=== PATIENT | male | born 1950 | race Caucasian/White ===

== ENCOUNTER 2018-10-26 07:34 | Outpatient (CLI) | payer MEDICARE, MEDICAID, SELFPAY ==
[2018-10-26 08:31] LABS: Hemoglobin A1C 5.8 % (4.5-6.2)
[2018-10-26 10:42] LABS: ALT 44 U/L (12-78); AST 46 U/L (15-37); CREATININE 1.04 mg/dL (0.70-1.30); Potassium 5.5 mmol/L (3.5-5.1)
== END 2018-10-26 07:54 ==
PROVIDERS: PCP General Practice; Visit Provider General Practice
DX: E11.9 Type 2 diabetes mellitus without complications (principal); I10 Essential (primary) hypertension; F10.10 Alcohol abuse, uncomplicated
CPT/HCPCS: 36415; 82565; 83036; 84132; 84450; 84460

== ENCOUNTER 2019-06-14 13:41 | Inpatient (IN) | payer MEDICARE, MEDICAID, SELFPAY ==
[2019-06-14] VITALS (11 sets, daily range): BP systolic 111–154; BP diastolic 73–93; PULSE 7–115; RESP 2–22; TEMP 36.8–38.5; O2SAT 94–97
--- NOTE | 2019-06-14 14:00 | DI.RAD_ITS ---
EXAM: XR CHEST 2V PA LATERAL INDICATION: COUGH/FEVER/SOB. COMPARISON: CHEST 2 VIEWS PA,LAT from 02/22/2016 TECHNIQUE: 2D digital imaging was performed. FINDINGS: The heart size and pulmonary vasculature are within normal limits. Given the slight differences in t echnique, there has been no significant change in appearance of the lungs. No acute infiltrates, eff usions or pneumothoraces are identified. There is hyperexpansion and inflation of the lungs consiste nt with underlying COPD. Degenerative changes are seen in the spine. IMPRESSION: No acute pulmonary process.
[2019-06-14 14:18] LABS: Lactate 1.4 mmol/L (0.6-1.4)
[2019-06-14] MEDS: Albuterol/Ipratropium 3 ML UPD VIAL UPD ×3 (14:19→23:26)
[2019-06-14 14:20] LABS: Abs Immature Grans 0.01 k/cumm (0.0-0.09); Absolute Basophil Count 0.03 k/cumm (0.0-0.2); Absolute Lymphocyte Count 0.48 k/cumm (1.2-3.4); Absolute Monocyte Count 0.53 k/cumm (0.11-0.7); Absolute Neutrophil Count 6.38 k/cumm (1.2-6.7); Basophils % 0.4; HCT 36.7 % (40.0-50.0); HGB 12.5 g/dL (13.5-17.5); Immature Grans % 0.1 %; Lymphocytes % 6.5; Mean Corp. HGB Concentration 34.1 g/dL (32.0-36.0); Mean Corpuscular Hemoglobin 32.2 pg (27.0-33.0); Mean Corpuscular Volume 94.6 fL (80-95); Mean Platelet Volume 8.6 fL (8.0-11.0); Monocytes % 7.1; Neutrophils % 85.9; Platelet Count 229 x1000/uL (130-400); RBC 3.88 m/cumm (4.50-6.00); RBC Distribution Width 12.7 % (11.8-14.1); White Blood Cell Count 7.43 k/cumm (4.4-10.8)
[2019-06-14] MEDS: Normal Saline 1,000 ML 1000 ML IV (14:20)
[2019-06-14] MEDS: Acetaminophen 500 MG TAB 1000 MG PO (14:20)
--- NOTE | 2019-06-14 14:25 | W.ED.GENAD ---
Discharge Plan Disposition Patient Disposition: [facility] INPATIENT Condition: Serious Discharge Details Chief Complaint: SOB Clinical Impression: Pneumonia, HOME (acute kidney injury), CHF (congestive heart failure) Primary Care Provider: Keith Padron ED Provider: Shahriar Shaffer Home Meds and New Rx's Prescriptions: No Action aspirin 81 mg Tablet,Chewable 81 mg PO DAILY RF: 0 cyclobenzaprine 10 mg Tablet 10 mg PO TID PRNRF: 0 atenolol 100 mg Tablet 100 mg PO DAILY RF: 0 albuterol sulfate 90 mcg/actuation Hfa Aerosol Inhaler 2 puff INHALATION Q6H PRNRF: 0 losartan 100 mg Tablet 100 mg PO DAILY RF: 0 Medical Decision Making 68-year-old gentleman who is a vague and poor historian presents for 3 day of dyspnea. Initial EKG obtained at 1347 reveals atrial fibrillation, rate of 107. No obvious acute ST elevation segments. Reviewed with Dr. Soto. We did review with previous EKG on 02-22-16 which revealed atrial fibrillation, rate controlled of 98 at that time. No dynamic changes. I was able to review the patient's record when he was here in 2016, he was offered admission at that time but declined. Patient reports that he feels ill enough today and would come into the hospital if needed. He presents with mild labored breathing, wheezing, fever. Will initiate a septic work-up, give 1 L IV fluid given he appears slightly dry, as well as a cardiac work-up. During the patient's stay his temperature did come down without an antipyretic to 37.8. Heart rate is now in the 90s, he is without tremor. No obvious signs of alcohol withdrawal. White count is within normal range. Creatinine of 1.54, he has already received 400 cc of normal saline. This puts his GFR at 45. Magnesium of 1.5, given 1 g IV. BNP of 3422, patient appears more dry, no obvious edema. Given his GFR, HOME, do not want to initiate aggressive Lasix therapy. However given his BNP, will gingerly give the remaining of the liter, especially as he will need a chest CTA to rule out PE as his chest x-ray was unremarkable. Chest CTA reveals pulmonary fibrosis, bilateral lower lobe infiltrates, cannot exclude simple edema without infectious infiltrate. No PE. Given the patient's age, comorbidities, lack of outpatient resources, I do believe that treating him for pneumonia, HOME, CHF here in the hospital is reasonable. I gave 1 g IV Rocephin and 500 IV azithromycin. Blood cultures were pending. Patient did receive the rest of his IV fluid, will not give a second liter at this time given his BNP, and as above will not initiate Lasix therapy given his HOME. I discussed the case with Dr. Rodriguez, who recommended a flu swab be obtained but was otherwise agreeable to admission. Patient has no additional questions or concerns as well and is comfortable with this plan Medical Records Medical records reviewed: Yes I reviewed the patient's medical records. Imaging Data Radiologic Study: Attestation: I personally reviewed and interpreted this imaging study as follows: Imaging: X-Ray (Chest, read by me as COPD changes, nothing acute) Radiologic Study #2: Imaging: CT Scan (As above, bilateral lower lobe infiltrates as read by radiology) Lab Data Lab results reviewed: Yes I reviewed the patient's lab results. Lab results narrative: 06/14/19 16:20 Nasopharynx Influenza Types A,B Antigen - Final 06/14/19 14:30 Blood Blood Culture - Pending 06/14/19 14:05 Blood Blood Culture - Pending Laboratory Tests Range/Units 06/14/19 06/14/19 06/14/19 14:02 14:02 14:05 WBC (4.4-10.8) k/cumm RBC (4.50-6.00) m/cumm Hgb (13.5-17.5) g/dL Hct (40.0-50.0) % MCV (80-95) fL MCH (27.0-33.0) pg MCHC (32.0-36.0) g/dL RDW (11.8-14.1) % Plt Count (130-400) x1000/uL MPV (8.0-11.0) fL Immature Gran % % Neutrophils % Lymphocytes % Monocytes % Eosinophils % Basophils % Absolute Neutrophils (1.2-6.7) k/cumm Absolute Lymphocytes (1.2-3.4) k/cumm Absolute Monocytes (0.11-0.7) k/cumm Absolute Eosinophils (0.0-0.7) k/cumm Absolute Basophils (0.0-0.2) k/cumm Sodium (136-145) mmol/L 133 L Potassium (3.5-5.1) mmol/L 4.4 Chloride (98-107) mmol/L 97 L Carbon Dioxide (21.0-32.0) mmol/L 21.9 Anion Gap (3-11) mmol/L 14.1 H BUN (7-18) mg/dL 20 H Creatinine (0.70-1.30) mg/dL 1.54 H Estimated GFR/1.73 m2 (mL/min/1.73m2) 45.01 Glucose (74-106) mg/dL 126 H Lactate (0.6-1.4) mmol/L Calcium (8.5-10.1) mg/dL 8.6 Magnesium (1.8-2.4) mg/dL 1.5 L Total Bilirubin (0.2-1.0) mg/dL 0.5 AST (15-37) U/L 45 H ALT (16-63) U/L 34 Alkaline Phosphatase (46-116) U/L 81 Troponin I (<0.06) ng/Ml < 0.05 NT-Pro-B Natriuret Pep (<300) pg/mL 3422 H Total Protein (6.4-8.2) g/dL 8.4 H Albumin (3.4-5.0) g/dL 3.8 Procalcitonin ng/mL Ethyl Alcohol (<3) mg/dL < 3.0 Range/Units 06/14/19 06/14/19 06/14/19 14:05 14:05 14:05 WBC (4.4-10.8) k/cumm 7.43 RBC (4.50-6.00) m/cumm 3.88 L Hgb (13.5-17.5) g/dL 12.5 L Hct (40.0-50.0) % 36.7 L MCV (80-95) fL 94.6 MCH (27.0-33.0) pg 32.2 MCHC (32.0-36.0) g/dL 34.1 RDW (11.8-14.1) % 12.7 Plt Count (130-400) x1000/uL 229 MPV (8.0-11.0) fL 8.6 Immature Gran % % 0.1 Neutrophils % 85.9 Lymphocytes % 6.5 Monocytes % 7.1 Eosinophils % 0.0 Basophils % 0.4 Absolute Neutrophils (1.2-6.7) k/cumm 6.38 Absolute Lymphocytes (1.2-3.4) k/cumm 0.48 L Absolute Monocytes (0.11-0.7) k/cumm 0.53 Absolute Eosinophils (0.0-0.7) k/cumm 0.00 Absolute Basophils (0.0-0.2) k/cumm 0.03 Sodium (136-145) mmol/L Potassium (3.5-5.1) mmol/L Chloride (98-107) mmol/L Carbon Dioxide (21.0-32.0) mmol/L Anion Gap (3-11) mmol/L BUN (7-18) mg/dL Creatinine (0.70-1.30) mg/dL Estimated GFR/1.73 m2 (mL/min/1.73m2) Glucose (74-106) mg/dL Lactate (0.6-1.4) mmol/L 1.4 Calcium (8.5-10.1) mg/dL Magnesium (1.8-2.4) mg/dL Total Bilirubin (0.2-1.0) mg/dL AST (15-37) U/L ALT (16-63) U/L Alkaline Phosphatase (46-116) U/L Troponin I (<0.06) ng/Ml NT-Pro-B Natriuret Pep (<300) pg/mL Total Protein (6.4-8.2) g/dL Albumin (3.4-5.0) g/dL Procalcitonin ng/mL 0.7 Ethyl Alcohol (<3) mg/dL HPI General Mode of arrival: ambulatory. Date/Time Provider Initiated Documentation: 06/14/19 13:46. Limitations to Documentation: no limitations. Information obtained by: patient. HPI Narrative: This is a 68-year-old gentleman who presents to the ER for 3-day history of dyspnea, worse with exertion or lying flat. He reports that he drinks alcohol roughly 6-12 beers daily but has not had a drink in 3 days. He reports that he smoked a pack of cigarettes daily for roughly 50 years but stopped a couple years ago. He is supposed to be using an inhaler but reports that they do not help so he does not use them. He is a rather vague and poor historian. He admits a dry cough, subjective fever, and general fatigue. He denies headache, neck pain, visual changes, chest pain, abdominal pain, nausea, vomiting, bowel or bladder issues, pain or swelling in his legs. Denies numbness, tingling, weakness. Patient is unaware of any history of atrial fibrillation although it looks like he may be in A. fib on the color television console monitor, EKG pending. Patient denies any anticoagulation medication. He currently does not have a primary care provider. Related Data Home Medications Medication Instructions Recorded Confirmed albuterol sulfate 2 puff INHALATION Q6H PRN 06/14/19 06/14/19 aspirin 81 mg PO DAILY 06/14/19 06/14/19 atenolol 100 mg PO DAILY 06/14/19 06/14/19 cyclobenzaprine 10 mg PO TID PRN 06/14/19 06/14/19 losartan 100 mg PO DAILY 06/14/19 06/14/19 Allergies Allergy/AdvReac Type Severity Reaction Status Date / Time Penicillins Allergy Unknown Unverified 06/14/19 13:54 General Stated Complaint: SOB ANETA: 2 Review of Systems Constitutional Constitutional: Denies chills, Reports fatigue, Reports fever(s) and Denies headache(s) Eyes Eyes: Denies other visual disturbances ENT Ears, Nose, Mouth, and Throat: Denies headache(s) and Denies sore throat Cardiovascular Cardiovascular: Denies chest pain and Reports dyspnea Respiratory Respiratory: Reports cough and Reports dyspnea Gastrointestinal Gastrointestinal: Denies abdominal pain, Denies nausea and Denies vomiting Genitourinary Genitourinary: Denies dysuria Musculoskeletal Musculoskeletal: Denies back pain Integumentary/Breasts Skin/Breast: Denies rash Neurologic Neurologic: Denies headache(s) Endocrine Endocrine: Reports fatigue Hematologic/Lymphatic Hematologic/Lymphatic: Denies easy bleeding and Denies easy bruising [facility] Social History Smoking/Tobacco Use Status: Current every day Tobacco Type: smokeless tobacco Substance use type: marijuana Details: drinks 6-12 pack beer everyday except the last 3 days Exam Const General: cooperative and comfortable Orientation: alert and awake [facility] Head: normal to inspection, normocephalic and atraumatic Mouth: mucous membranes dry Eyes Conjunctivae: conjunctivae normal Neck Neck: normal visual inspection, full ROM, no lymphadenopathy, no meningeal signs, trachea midline and supple Resp Effort & Inspection: cough Quality of cough: dry, labored (mild) and no respiratory distress Auscultation: diminished lung sounds (Throughout, worse at the bases) and wheezes (Throughout, mild, worse in the upper lobes) Cardio Rate: other Rhythm: other (Irregularly irregular, rate of 112) GI Inspection: normal to inspection Palpation: soft, not firm, no guarding, not rigid and nontender Auscultation: normal bowel sounds Back/Spine/Pelvis Back: No back tenderness Skin General skin exam: no rashes or lesions noted Neuro General: alert, awake, oriented x3 and no focal motor deficits Cranial Nerves: CN's II-XI intact bilaterally Motor: muscle tone normal throughout Sensory Exam: no sensory deficits noted Extrem General: normal to inspection Psych Appearance: grossly normal Mental Status: mental status grossly normal Course Vital Signs Vital signs: Vital Signs Temperature 38.5 C H 06/14/19 13:46 Pulse 115 H 06/14/19 13:46 Respiratory Rate 22 06/14/19 13:46 Blood Pressure 154/88 H 06/14/19 13:46 Pulse Oximetry 96 06/14/19 13:46 Temperature 38.5 C H 06/14/19 13:46 Pulse 103 H 06/14/19 14:19 Respiratory Rate 22 06/14/19 13:46 Respiratory Effort Labored 06/14/19 13:46 Blood Pressure 154/88 H 06/14/19 13:46 Blood Pressure Position Sitting 06/14/19 13:46 Pulse Oximetry 96 06/14/19 13:46 Oxygen Delivery Method Room Air 06/14/19 14:19 Oxygen Flow Rate 0 06/14/19 14:19 Pain Level 0 06/14/19 13:46 Lab/Test Results Lab/Test Results: 06/14/19 14:05 Blood Blood Culture - Pending 06/14/19 14:02 Blood Blood Culture - Pending Laboratory Tests Range/Units 06/14/19 06/14/19 14:05 14:05 WBC (4.4-10.8) k/cumm 7.43 RBC (4.50-6.00) m/cumm 3.88 L Hgb (13.5-17.5) g/dL 12.5 L Hct (40.0-50.0) % 36.7 L MCV (80-95) fL 94.6 MCH (27.0-33.0) pg 32.2 MCHC (32.0-36.0) g/dL 34.1 RDW (11.8-14.1) % 12.7 Plt Count (130-400) x1000/uL 229 MPV (8.0-11.0) fL 8.6 Immature Gran % % 0.1 Neutrophils % 85.9 Lymphocytes % 6.5 Monocytes % 7.1 Eosinophils % 0.0 Basophils % 0.4 Absolute Neutrophils (1.2-6.7) k/cumm 6.38 Absolute Lymphocytes (1.2-3.4) k/cumm 0.48 L Absolute Monocytes (0.11-0.7) k/cumm 0.53 Absolute Eosinophils (0.0-0.7) k/cumm 0.00 Absolute Basophils (0.0-0.2) k/cumm 0.03 Lactate (0.6-1.4) mmol/L 1.4
[2019-06-14 14:39] LABS: ALT 34 U/L (16-63); AST 45 U/L (15-37); Albumin 3.8 g/dL (3.4-5.0); Alkaline Phosphatase 81 U/L (46-116); Anion Gap 14.1 mmol/L (3-11); BUN 20 mg/dL (7-18); Bilirubin, Total 0.5 mg/dL (0.2-1.0); CO2 21.9 mmol/L (21.0-32.0); CREATININE 1.54 mg/dL (0.70-1.30); Calcium 8.6 mg/dL (8.5-10.1); Chloride 97 mmol/L (98-107); Estimated GFR 45.01 (mL/min/1.73m2); Glucose 126 mg/dL (74-106); Magnesium 1.5 mg/dL (1.8-2.4); Potassium 4.4 mmol/L (3.5-5.1); Sodium 133 mmol/L (136-145); Total Protein 8.4 g/dL (6.4-8.2)
[2019-06-14 14:40] LABS: Troponin I < 0.05 ng/Ml (<0.06)
[2019-06-14 14:45] LABS: NT-proBNP 3422 pg/mL (<300)
[2019-06-14 14:57] LABS: ETHANOL BLOOD < 3.0 mg/dL (<3)
[2019-06-14] MEDS: Normal Saline - Diluent 50 ML VIAL IV (15:25)
[2019-06-14] MEDS: Omnipaque 350 MG/ML 100 ML BTL IJ (15:41)
--- NOTE | 2019-06-14 15:42 | DI.CT_ITS ---
EXAM: CT CHEST PE CTA CLINICAL HISTORY: IN A. FIB, UNKNOWN HOW LONG, DYSPNEA, TACHY. TECHNIQUE: Imaging Protocol: Axial CT angiography was performed with multislice acquisition and mul tiplanar and/or 3D reconstructions. CONTRAST MATERIAL: Intravenous: Omnipaque 350 Contrast volume:70 mL COMPARISON: XR CHEST 2V PA LATERAL from 06/14/2019 FINDINGS: There is significant patient motion artifact present. Pulmonary Arteries: No evidence of filling defect to suggest pulmonary emboli. Tracheobronchial tree: Patent where visualized. Mediastinum and Enedina: Mildly enlarged lymph nodes are seen in the mediastinum. These are nonspecific . Pulmonary parenchyma: There is moderate pulmonary fibrosis predominantly involving the lower lobes. Centrilobular emphysematous changes are present. There are airspace opacities in the lower lobes benita aterally and the right middle lobe. This may reflect pulmonary edema, pneumonia or atelectasis. Pleura: No effusion or pneumothorax. Heart: Heart is enlarged. No significant pericardial effusion is present. No evidence of right hear t strain. Moderate coronary artery calcifications are present. Aorta: Thoracic aorta non-dilated. No dissection. No evidence of an aneurysm. Upper abdomen: Unremarkable. Bones: Degenerative changes. IMPRESSION: 1. Patient motion artifact present. 2. No evidence of pulmonary embolism, thoracic aortic dissection or aneurysm. 3. Centrilobular emphysema. 4. Moderate pulmonary fibrosis. 5. Airspace opacities in the lower lobe and right middle lobe. This may reflect edema, pneumonia or atelectasis. 6. Findings were discussed with the Emergency Department on the date of the examination. DATA REPOSITORY: All CT scans at this facility are submitted to the National Radiology Data Registry (NRDR) Dose Index Registry (DIR) with the [employer] (ACR). RADIATION OPTIMIZATION: All CT scans at this facility use at least one of these dose optimization te chniques: automated exposure control; mA and/or kV adjustment per patient size (includes targeted exa ms where dose is matched to clinical indication); or iterative reconstruction.
[2019-06-14] MEDS: MAGNESIUM SULFATE 1 GM/100 ML BAG IVPB (16:03)
[2019-06-14] MEDS: cefTRIAXone 1 GM/50 ML BAG IVPB (16:25)
[2019-06-14 17:02] LABS: Procalcitonin 0.7 ng/mL
[2019-06-14] MEDS: Thiamine 100 MG TAB PO (17:02)
[2019-06-14] MEDS: AZITHROMYCIN 500 MG in Normal Saline 250 ML 250 MG IVPB (17:04)
[2019-06-14 17:19] LABS: Troponin I < 0.05 ng/Ml (<0.06)
[2019-06-14 18:28] LABS: Bilirubin Negative (Negative); Blood Negative (Negative); Clarity Clear (Clear); Glucose Negative (Negative); Ketones Negative (Negative); Leukocyte Esterase Negative (Negative); Nitrite Negative (Negative); Specific Gravity <= 1.005 (1.005-1.025); Urobilinogen 0.2 EU/dL (Up TO 0.2); pH 5.5 (5-8)
[2019-06-14] MEDS: Heparin 5,000 UNITS/ML VIAL 5000 UNITS SC (18:39)
--- NOTE | 2019-06-14 18:56 | HPE_ITS ---
Date of service: 06/14/19 Time of Service: 18:57 Assessment and Plan Assessment and plan (1) Sepsis: Status: Acute Assessment and plan: due to bilateral pneumonia, present on admission. Blood cultures and sputum cultures are pending. Continue empiric azithromycin and ceftriaxone initiated in the ED. Initiated MIVF. Monitor I/O's and daily weights. (2) CAP (community acquired pneumonia): Status: Acute Assessment and plan: As above (3) Pulmonary fibrosis: Status: Acute Assessment and plan: the likely etiology of crackles heard on exam rather than CHF. Patient is being initiated on Steroids as it could be in acute exacerbation. (4) Alcohol abuse: Status: Chronic Assessment and plan: Monitor on CIWA with prn ativan, MVI, thiamine. (5) Hypomagnesemia: Status: Acute Assessment and plan: Replete and recheck in am (6) Atrial fibrillation: Status: Chronic Assessment and plan: rate controlled at this time. Continue atenolol. Not on anticoagulation due to h/o EtOH abuse - would not start at thist shawn. (7) HOME (acute kidney injury): Status: Acute Assessment and plan: Most likely prerenal in setting of sepsis, but also on losartan as outpatient - will hold. Hydrate carefully. Check bladder scans (8) Hyponatremia: Status: Acute Assessment and plan: In setting of HOME, ARB use, sepsis, dehydration. Hold ARB, hydrate with IVF; recheck in am. (9) DVT prophylaxis: Status: Acute Assessment and plan: SC heparin (10) Discharge planning issues: Status: Acute Assessment and plan: Full code Consult palliative care for further discussion re goals of care History of Present Illness History of Present Illness Chief Complaint: I couldn't breathe Narrative: Mr Cooper is a 68 year old male who is a poor history provider with PMHx of Afib, not on anticoagulation, as well as hypertension, hypomagnesemia, alcohol abuse with history of possible alcohol withdrawal in the past, who presented to [facility] ED today complaining of shortness of breath. He states that his symptoms have been going on for 2-3 days, describing subjective fevers, nonproductive cough, runny nose and sore throat. The patient did have a fever on presentation and his heart rate was slightly rapid (Afib - low 100s). He tested negative for influenza. His CT imaging of the chest did reveal bibasilar pneumonia. The patient was felt to be clinically dehydrated as well, though there was a suggestion of fluid overload from an elevated proBNP and chest imaging. The patient was initiated on empiric azithromycin, ceftriaxone, and we were asked to admit the patient. Review of Systems Narrative: 12 systems reviewed. Pertinent positives and negatives are as per HPI. [facility] Medical History (Updated 06/14/19 @ 19:23 by Ghislaine Rodriguez MD) Alcohol abuse (Chronic) Atrial fibrillation (Chronic) Hypertension (Chronic) Hypomagnesemia (Acute) Tobacco abuse, in remission (Acute) Surgical History (Updated 06/14/19 @ 19:04 by Ghislaine Rodriguez MD) Hx of appendectomy (Chronic) S/P surgical manipulation of ankle joint (Acute) Family History (Updated 06/14/19 @ 19:05 by Ghislaine Rodriguez MD) Paternal Grandmother Diabetes Uncle Cancer patient does not know what type Social History (Updated 06/14/19 @ 19:06 by Ghislaine Rodriguez MD) Smoking/Tobacco Use Status: Former Tobacco Use Quit Date: 04/28/16 Pack-years: 150 Tobacco: How many years used: 50 Alcohol Intake: current Alcohol Intake frequency: 3 or more drinks per day Al cohol type: beer Substance use type: marijuana Details: drinks 6-12 pack beer everyday except the last 3 days Meds Home Medications and Allergies Home Medications Medication Instructions Recorded Confirmed Type albuterol sulfate 2 puff INHALATION Q6H PRN 06/14/19 06/14/19 History aspirin 81 mg PO DAILY 06/14/19 06/14/19 History atenolol 100 mg PO DAILY 06/14/19 06/14/19 History cyclobenzaprine 10 mg PO TID PRN 06/14/19 06/14/19 History losartan 100 mg PO DAILY 06/14/19 06/14/19 History Allergies Allergy/AdvReac Type Severity Reaction Status Date / Time Penicillins Allergy Unknown Unverified 06/14/19 13:54 Exam Narrative Exam Narrative: General: Elderly male, looks older than his stated age, irritable, A&Ox3, not in acute distress Neurological: A&Ox3, no focal deficits, forgetful; no evidence of tremors or alcohol withdrawal at this time Psychiatric: mildly anxious Skin: visible skin intact; dry HEENT: Atraumatic, normocephalic, EOMI, dry MM, clear oropharynx, no pharyngeal erythema, no submandibular or cervical lymphadenopathy, no goiter or JVD Cardiovascular: irregularly irregular rhythm, no m/r/g Lungs: wheezing on expiration B; crackles at B bases Gastrointestinal: soft, nontender, nondistended Genitourinary: deferred Extremities: no e/c/c BLE's Results Imaging Additional studies: CXR PA and lateral: No acute pulmonary process. CTA chest: 1. Patient motion artifact present. 2. No evidence of pulmonary embolism, thoracic aortic dissection or aneurysm. 3. Centrilobular emphysema. 4. Moderate pulmonary fibrosis. 5. Airspace opacities in the lower lobe and right middle lobe. This may reflect edema, pneumonia or atelectasis. 6. Findings were discussed with the Emergency Department on the date of the examination. Labs Result diagrams: 06/14/19 14:05 06/14/19 14:05 Labs: Laboratory Results - last 24 hr 06/14/19 06/14/19 06/14/19 14:02 14:02 14:05 WBC RBC Hgb Hct MCV MCH MCHC RDW Plt Count MPV Immature Gran % Neutrophils % Lymphocytes % Monocytes % Eosinophils % Basophils % Absolute Neutrophils Absolute Lymphocytes Absolute Monocytes Absolute Eosinophils Absolute Basophils Sodium 133 L Potassium 4.4 Chloride 97 L Carbon Dioxide 21.9 Anion Gap 14.1 H BUN 20 H Creatinine 1.54 H Estimated GFR/1.73 m2 45.01 Glucose 126 H Lactate Calcium 8.6 Magnesium 1.5 L Total Bilirubin 0.5 AST 45 H ALT 34 Alkaline Phosphatase 81 Troponin I < 0.05 NT-Pro-B Natriuret Pep 3422 H Total Protein 8.4 H Albumin 3.8 Procalcitonin Urine Color Urine Clarity Urine pH Ur Specific [place] Urine Protein Urine Ketones Urine Blood Urine Nitrite Urine Bilirubin Urine Urobilinogen Ur Leukocyte Esterase Urine Glucose Ethyl Alcohol < 3.0 06/14/19 06/14/19 06/14/19 14:05 14:05 14:05 WBC 7.43 RBC 3.88 L Hgb 12.5 L Hct 36.7 L MCV 94.6 MCH 32.2 MCHC 34.1 RDW 12.7 Plt Count 229 MPV 8.6 Immature Gran % 0.1 Neutrophils % 85.9 Lymphocytes % 6.5 Monocytes % 7.1 Eosinophils % 0.0 Basophils % 0.4 Absolute Neutrophils 6.38 Absolute Lymphocytes 0.48 L Absolute Monocytes 0.53 Absolute Eosinophils 0.00 Absolute Basophils 0.03 Sodium Potassium Chloride Carbon Dioxide Anion Gap BUN Creatinine Estimated GFR/1.73 m2 Glucose Lactate 1.4 Calcium Magnesium Total Bilirubin AST ALT Alkaline Phosphatase Troponin I NT-Pro-B Natriuret Pep Total Protein Albumin Procalcitonin 0.7 Urine Color Urine Clarity Urine pH Ur Specific [place] Urine Protein Urine Ketones Urine Blood Urine Nitrite Urine Bilirubin Urine Urobilinogen Ur Leukocyte Esterase Urine Glucose Ethyl Alcohol 06/14/19 06/14/19 16:55 18:02 WBC RBC Hgb Hct MCV MCH MCHC RDW Plt Count MPV Immature Gran % Neutrophils % Lymphocytes % Monocytes % Eosinophils % Basophils % Absolute Neutrophils Absolute Lymphocytes Absolute Monocytes Absolute Eosinophils Absolute Basophils Sodium Potassium Chloride Carbon Dioxide Anion Gap BUN Creatinine Estimated GFR/1.73 m2 Glucose Lactate Calcium Magnesium Total Bilirubin AST ALT Alkaline Phosphatase Troponin I < 0.05 NT-Pro-B Natriuret Pep Total Protein Albumin Procalcitonin Urine Color Yellow Urine Clarity Clear Urine pH 5.5 Ur Specific [place] <= 1.005 Urine Protein Negative Urine Ketones Negative Urine Blood Negative Urine Nitrite Negative Urine Bilirubin Negative Urine Urobilinogen 0.2 Ur Leukocyte Esterase Negative Urine Glucose Negative Ethyl Alcohol Last Vital Signs Temp 36.9 C 06/14/19 18:04 Pulse 75 06/14/19 18:39 Resp 20 06/14/19 18:39 BP 123/93 H 06/14/19 18:04 Pulse Ox 94 L 06/14/19 18:39
[2019-06-14] MEDS: guaiFENesin 600 MG TABCR PO (19:38)
[2019-06-14] MEDS: methylPREDNISolone SUCC 125 MG VIAL 60 MG IVP (19:38)
[2019-06-14] MEDS: MAGNESIUM SULFATE 4 GM/100 ML BAG IVPB (19:38)
[2019-06-14] MEDS: Benzonatate 100 MG CAP PO (19:38)
[2019-06-14] MEDS: Normal Saline 1,000 ML 75 ML IV (22:25)
[2019-06-15] VITALS (22 sets, daily range): BP systolic 102–182; BP diastolic 74–110; PULSE 73–158; RESP 2–32; TEMP 36.2–37.1; O2SAT 93–100
[2019-06-15] MEDS: Heparin 5,000 UNITS/ML VIAL 5000 UNITS SC ×3 (01:59→17:41)
[2019-06-15] MEDS: methylPREDNISolone SUCC 125 MG VIAL 60 MG IVP ×2 (03:48→12:09)
[2019-06-15] MEDS: Albuterol/Ipratropium 3 ML UPD VIAL UPD ×4 (05:49→23:55)
[2019-06-15 07:13] LABS: Abs Immature Grans 0.01 k/cumm (0.0-0.09); Absolute Basophil Count 0.01 k/cumm (0.0-0.2); Absolute Lymphocyte Count 0.47 k/cumm (1.2-3.4); Absolute Monocyte Count 0.07 k/cumm (0.11-0.7); Absolute Neutrophil Count 4.14 k/cumm (1.2-6.7); Basophils % 0.2; HGB 11.5 g/dL (13.5-17.5); Immature Grans % 0.2 %; Mean Corp. HGB Concentration 32.9 g/dL (32.0-36.0); Mean Corpuscular Hemoglobin 31.3 pg (27.0-33.0); Mean Corpuscular Volume 95.1 fL (80-95); Mean Platelet Volume 8.5 fL (8.0-11.0); Monocytes % 1.5; Neutrophils % 88.1; Platelet Count 212 x1000/uL (130-400); RBC 3.68 m/cumm (4.50-6.00); RBC Distribution Width 12.6 % (11.8-14.1)
[2019-06-15 07:44] LABS: BUN 18 mg/dL (7-18); Calcium 8.2 mg/dL (8.5-10.1); Chloride 100 mmol/L (98-107); Glucose 158 mg/dL (74-106); Magnesium 2.3 mg/dL (1.8-2.4); Sodium 135 mmol/L (136-145)
--- NOTE | 2019-06-15 08:00 | DI.US_ITS ---
APPROVED REPORT EXAM: Comprehensive 2D, Doppler, and color-flow Echocardiogram Patient Location: In-Patient Microbiological Laboratory Technician: Kasey Shah RDCS (AE) Rhythm: Atrial Fibrillation Indications: suspicious for CHF Conclusion Technically adequate study Left ventricle is normal in size and wall thickness. Estimated ejection fraction is 55 to 60%. Ther e are no segmental wall motion abnormalities The left atrium is moderately dilated The right ventricle is mildly dilated with normal systolic function. Right atrium is top normal size The aortic valve is trileaflet and sclerotic. There is mild to moderate aortic stenosis with a mean gradient of 14 and a calculated aortic valve area of 1.1 cm???. There is no aortic regurgitation There is mild mitral and tricuspid regurgitation. There is trace physiologic pulmonic regurgitation The ascending aorta is borderline dilated measuring 3.66 cm Wall motion Left Ventricle The left ventricle is normal size. The left ventricular systolic function is normal. The left ventric ular ejection fraction is within the normal range. There is normal left ventricular wall thickness. T here is normal LV segmental wall motion. Elevated left ventricular filling pressures. LVEF is 55-60%. Right Ventricle Right ventricle is mildly dilated. The right ventricular systolic function is normal. Atria Left atrium is moderately dilated. The right atrium size is top normal. Aortic Valve Aortic valve is probably trileaflet. Aortic valve leaflets are sclerotic with decreased opening. Mild to moderate aortic stenosis Mean gradient is 14 Calculated aortic valve area 1.1 cm??? No aortic reg urgitation is present. Mitral Valve Mitral valve leaflets are mildly thickened. Mild mitral regurgitation. Tricuspid Valve Tricuspid valve leaflets are thickened but open well. Mild tricuspid regurgitation. Pulmonic Valve The pulmonary valve is normal in structure. Trace pulmonic regurgitation Great Vessels The aortic root is normal in size. The ascending aorta is mildly dilated. The IVC is dilated. The IVC collapses <50% with inspiration. Pericardium There is no pericardial effusion. 2D Dimensions IVSD d PLAX 0.91 cm M: 0.6-1.2 LV Vol A2C d MOD 57.6 mL LVPW d PLAX 0.90 cm M: 0.6 - 1.2 LV Vol A4C d MOD 92.3 mL LVID d PLAX 5.00 cm M: 4.2 - 5.8 LA vol/ BSA A2C s A-L 51.5 mL/m2 LVDs 3.60 cm M: 2.5 - 4.0 LA vol/ BSA A4C s A-L 47.1 mL/m2 Ao Root d 3.48 cm M: 3.1 - 3.7 LA Vol/ BSA Biplane s A-L 53.6 mL/m2 RVID Base (AP4) 4.22 cm (M/F) 2.5-4.1 LA Area A4C s MOD 24.75 cm2 RA Area A4C 18.09 cm2 LA Area A2C s MOD 28.18 cm2 RA Vol/ BSA A4C s A-L 27.2 mL/m2 LV EF A4C MOD 65.9 % Ao Asc Diam d 3.66 cm M: 2.6 - 3.4 LV EF A2C MOD 59.0 % LV EF Teichholz 53.6 % LV EF Biplane MOD 62.3 % LVEF (Tovar's) 62.35 % M: 52 - 72 IVC Diam exp d SLAX 2.18 cm LV Volume 56.62 mL M: 62 - 150 LV Volume Index 29.80 mL/m2 M: 34 - 74 LV Vol Biplane MOD 74.2 mL FS 27.70 % M-Mode TAPSE 1.60 cm (M/F) <1.7 LV Diastology MV E' medial 0.093 (>0.07 m/s) PV S/D Ratio 0.26 LV E/e MED 14.90 (<14) MV E Vmax 1.39 (0.4-1.3 m/s) MV E' lateral 0.105 (>0.1 m/s) LV E/e LAT 13.15 (<14) MV E/E' medial 14.95 MV E/E' lateral 13.19 Aortic Valve LVOT Area 3.90 cm2 AoV Area Vmax 1.31 cm2 LVOT Vmax 0.84 m/s AoV Area/ BSA (Vmax) 0.69 cm2/m2 LVOT Mean Barry. 0.62 m/s SORAYA Mean Barry. 1.41 cm2 LVOT Peak Grad 2.8 mmHg SORAYA Mean Barry. Index 0.74 cm2/m2 LVOT Mean Grad 1.7 mmHg LVOT VTI 0.181 m LVOT Diam s 2.20 cm (M/F) 1.5-2.5 AoV Vmax 2.49 (0.5-1.3 m/s) Velocity Ratio 0.33 AoV Mean Barry. 1.73 m/s AoV Peak Grad 24.9 mmHg LVOT SV 70.84 mL AoV Mean Grad 13.7 (<5 mmHg) AoV VTI 0.504 (0.18-0.25 m) VTI Ratio 0.36 AoV Area VTI 1.40 (2.5-4.5 cm2) AoV Area/ BSA (VTI) 0.74 cm/m2 Mitral Valve MV VTI 0.115 m MR Vmax 5.52 m/s MV VTI Annulus 0.130 m MR VTI 1.718 m MV Area VTI 7.07 (4.0-6.0 cm2) MR Peak Grad 122.1 mmHg MV Diam AP 3.41 cm MR Mean Grad 84.2 mmHg MV SV 119.02 mL MV Regurg Vol 48.19 mL Pulm Vein s 0.22 m/s MV RF 40.48 % Pulm Vein d 0.84 m/s MR VC 0.31 (0-0.3 cm) RUPV S Vmax 0.22 m/s RUPV D Vmax 0.84 m/s Pulmonary Valve PV Vmax 0.74 (0.5-1.5 m/s) RVOT Peak Gr. 1.26 mmHg PV Peak Grad 2.2 mmHg RVOT Mean Gr. 0.90 mmHg PV Mean Grad 1.3 mmHg RVOT VTI 0.138 m PV VTI 0.143 m RVOT Vmax 0.56 m/s Tricuspid Valve TR Peak Grad 37.5 mmHg TR Vmax 3.06 m/s RA Pressure 10.00 mmHg RVSP (TR) 47.5 mmHg
[2019-06-15 08:17] LABS: FREE T4 0.92 ng/dL (0.76-1.46)
[2019-06-15] MEDS: Normal Saline Flush 10 ML SYR IVP ×2 (08:28→21:24)
[2019-06-15] MEDS: Pantoprazole 40 MG VIAL IVP (08:28)
[2019-06-15] MEDS: Thiamine 100 MG TAB PO (08:29)
[2019-06-15] MEDS: Multivitamin TAB 1 TAB PO (08:29)
[2019-06-15] MEDS: Atenolol 50 MG TAB 100 MG PO (08:29)
[2019-06-15] MEDS: Aspirin 81 MG CHEW PO (08:29)
[2019-06-15] MEDS: guaiFENesin 600 MG TABCR PO ×2 (08:29→20:03)
[2019-06-15] MEDS: Benzonatate 100 MG CAP PO ×3 (08:30→20:03)
[2019-06-15] MEDS: Folic Acid 1 MG TAB PO (08:30)
--- NOTE | 2019-06-15 11:29 | W.NUTCONSULT ---
Date of service: 06/15/19 Time of Service: 11:29 Nutritional Consult ASSESSMENT: 68 year old male admitted withy Sepsis secondary to PNA. PMH: pulmonary fibrosis, ETOH abuse. Meds include adequate vitamin/mineral repletion. Labs indicates hyponatremia, elevated blood sugars. BMI wnl. Following Low Sodium diet with adequate intake to maintain body weight. recommend liberalize diet to Regular in view of hyponatremia. Not at nutritional risk at this time. MONITORING AND EVALUATION: po intake, weight, labs Time Spent in Nutritional Counseling and Treatment: 0 time spent face to face
--- NOTE | 2019-06-15 12:18 | PGE_ITS ---
Date of Service Date of service: 06/15/19 Time of Service: 12:18 Assessment and Plan Assessment and plan (1) Sepsis: Status: Acute Assessment and plan: due to bilateral pneumonia, present on admission. Blood cultures and sputum cultures are still pending, but clinically Mr Cooper is responding to abx nicely. Continue empiric azithromycin and ceftriaxone as well as gentle IVF. Monitor I/O's and daily weights. Assuming the patient continues to improve, he should be able to be discharged home tomorrow with PO abx. (2) CAP (community acquired pneumonia): Status: Acute Assessment and plan: As above (3) Pulmonary fibrosis: Status: Acute Assessment and plan: the likely etiology of crackles heard on exam rather than CHF. Transition steroids to PO for presumed exacerbation of pulmonary fibrosis. (4) Alcohol abuse: Status: Chronic Assessment and plan: Monitor on CIWA with prn ativan, MVI, thiamine. (5) Hypomagnesemia: Status: Resolved Assessment and plan: recheck in am (6) Atrial fibrillation: Status: Chronic Assessment and plan: rate controlled at this time, though did have 1 short burst of RVR. No change in tx at this time. Continue atenolol. New PCP may want to do outpatient cardiac monitoring, but this is not urgently indicated. Keep on tele. Not on anticoagulation due to h/o EtOH abuse - would not start at this time. (7) HOME (acute kidney injury): Status: Acute Assessment and plan: Most likely prerenal in setting of sepsis, but also on losartan as outpatient. Cr is better today. COntinue IVF and continue to hold losartan. Recheck in am. (8) Hyponatremia: Status: Acute Assessment and plan: In setting of HOME, ARB use, sepsis, dehydration. Continue IVF. Improved slightly. Hold ARB, hydrate with IVF; recheck in am. (9) DVT prophylaxis: Status: Acute Assessment and plan: SC heparin (10) Discharge planning issues: Status: Acute Assessment and plan: Full code Consult palliative care for further discussion re goals of care Expected to be discharged home tomorrow with PO abx Subjective Subjective Interval history since last seen: Feels a lot better today - states he is not dizzy, not having chest pain, that his shortness of breath is much better, denies n/v. He is able to lay flat and walk without shortness of breath. Latest CIWA score is 1. He did score 4 this morning for tremulousness, but this has now totally resolved. Exam Narrative Exam Narrative: General: Elderly male, looks older than his stated age, looks better than yesterday, A&Ox3, no increased work of breathing. HEENT: Atraumatic, normocephalic, EOMI, dry MM Cardiovascular: irregularly irregular rhythm, no m/r/g Lungs: decreased wheezing on expiration B; minimal crackles at B bases - overall sounds better Gastrointestinal: soft, nontender, nondistended Extremities: no e/c/c BLE's Objective Objective Clinical Data: Abnormal lab results 06/14/19 06/14/19 06/14/19 Range/Units 14:02 14:05 14:05 RBC 3.88 L (4.50-6.00) m/cumm Hgb 12.5 L (13.5-17.5) g/dL Hct 36.7 L (40.0-50.0) % MCV (80-95) fL Absolute Lymphocytes 0.48 L (1.2-3.4) k/cumm Absolute Monocytes (0.11-0.7) k/cumm Sodium 133 L (136-145) mmol/L Chloride 97 L (98-107) mmol/L Anion Gap 14.1 H (3-11) mmol/L BUN 20 H (7-18) mg/dL Creatinine 1.54 H (0.70-1.30) mg/dL Glucose 126 H (74-106) mg/dL Calcium (8.5-10.1) mg/dL Magnesium 1.5 L (1.8-2.4) mg/dL AST 45 H (15-37) U/L NT-Pro-B Natriuret Pep 3422 H (<300) pg/mL Total Protein 8.4 H (6.4-8.2) g/dL TSH (0.36-3.74) uIU/mL 06/15/19 06/15/19 Range/Units 06:48 06:48 RBC 3.68 L (4.50-6.00) m/cumm Hgb 11.5 L (13.5-17.5) g/dL Hct 35.0 L (40.0-50.0) % MCV 95.1 H (80-95) fL Absolute Lymphocytes 0.47 L (1.2-3.4) k/cumm Absolute Monocytes 0.07 L (0.11-0.7) k/cumm Sodium 135 L (136-145) mmol/L Chloride (98-107) mmol/L Anion Gap 13.0 H (3-11) mmol/L BUN (7-18) mg/dL Creatinine (0.70-1.30) mg/dL Glucose 158 H (74-106) mg/dL Calcium 8.2 L (8.5-10.1) mg/dL Magnesium (1.8-2.4) mg/dL AST (15-37) U/L NT-Pro-B Natriuret Pep (<300) pg/mL Total Protein (6.4-8.2) g/dL TSH 0.30 L (0.36-3.74) uIU/mL Vital Signs Temperature 37.0 C 06/15/19 07:57 Temperature Source Tympanic 06/15/19 07:57 Pulse 78 06/15/19 12:02 Pulse Rhythm Irregular 06/15/19 02:37 Respiratory Rate 16 06/15/19 12:02 Respiratory Effort Non-Labored 06/15/19 02:37 Respiratory Depth Normal 06/15/19 02:37 Respiratory Pattern Normal 06/15/19 02:37 Blood Pressure 146/92 H 06/15/19 07:57 Blood Pressure Position Sitting 06/14/19 13:46 Pulse Oximetry 98 06/15/19 12:02 Oxygen Delivery Method Room Air 06/15/19 11:54 Oxygen Flow Rate 0 06/15/19 11:54 Pain Level 0 06/15/19 07:57 Comment 06/14/19 14:55 Intake & Output 06/14/19 06/15/19 06/15/19 23:59 11:59 23:59 Intake Total 1150 / 1150 710 / 710 Output Total 700 / 700 1500 / 1500 Balance 450 / 450 -790 / -790 Weight 72.575 kg 76.8 kg Intake: IV 1150 / 1150 350 / 350 Oral 360 / 360 Output: Urine 700 / 700 1500 / 1500 Other: Urine Color Pale Yellow Urine Appearance Clear Clear Urine Odor None Normal Voiding Methods Toilet Urinal Urinal Laboratory Results WBC 4.70 k/cumm (4.4-10.8) D 06/15/19 06:48 RBC 3.68 m/cumm (4.50-6.00) L 06/15/19 06:48 Hgb 11.5 g/dL (13.5-17.5) L 06/15/19 06:48 Hct 35.0 % (40.0-50.0) L 06/15/19 06:48 MCV 95.1 fL (80-95) H 06/15/19 06:48 MCH 31.3 pg (27.0-33.0) 06/15/19 06:48 MCHC 32.9 g/dL (32.0-36.0) 06/15/19 06:48 RDW 12.6 % (11.8-14.1) 06/15/19 06:48 Plt Count 212 x1000/uL (130-400) 06/15/19 06:48 MPV 8.5 fL (8.0-11.0) 06/15/19 06:48 Immature Gran % 0.2 % 06/15/19 06:48 Neutrophils % 88.1 06/15/19 06:48 Lymphocytes % 10.0 06/15/19 06:48 Monocytes % 1.5 06/15/19 06:48 Eosinophils % 0.0 06/15/19 06:48 Basophils % 0.2 06/15/19 06:48 Absolute Neutrophils 4.14 k/cumm (1.2-6.7) 06/15/19 06:48 Absolute Lymphocytes 0.47 k/cumm (1.2-3.4) L 06/15/19 06:48 Absolute Monocytes 0.07 k/cumm (0.11-0.7) L 06/15/19 06:48 Absolute Eosinophils 0.00 k/cumm (0.0-0.7) 06/15/19 06:48 Absolute Basophils 0.01 k/cumm (0.0-0.2) 06/15/19 06:48 Sodium 135 mmol/L (136-145) L 06/15/19 06:48 Potassium 4.0 mmol/L (3.5-5.1) 06/15/19 06:48 Chloride 100 mmol/L (98-107) 06/15/19 06:48 Carbon Dioxide 22.0 mmol/L (21.0-32.0) 06/15/19 06:48 Anion Gap 13.0 mmol/L (3-11) H 06/15/19 06:48 BUN 18 mg/dL (7-18) 06/15/19 06:48 Creatinine 1.20 mg/dL (0.70-1.30) 06/15/19 06:48 Estimated GFR/1.73 m2 >= 60.00 (mL/min/1.73m2) 06/15/19 06:48 Glucose 158 mg/dL (74-106) H 06/15/19 06:48 Lactate 1.4 mmol/L (0.6-1.4) 06/14/19 14:05 Calcium 8.2 mg/dL (8.5-10.1) L 06/15/19 06:48 Magnesium 2.3 mg/dL (1.8-2.4) 06/15/19 06:48 Total Bilirubin 0.5 mg/dL (0.2-1.0) 06/14/19 14:05 AST 45 U/L (15-37) H 06/14/19 14:05 ALT 34 U/L (16-63) 06/14/19 14:05 Alkaline Phosphatase 81 U/L (46-116) 06/14/19 14:05 Troponin I < 0.05 ng/Ml (<0.06) 06/14/19 16:55 NT-Pro-B Natriuret Pep 3422 pg/mL (<300) H 06/14/19 14:02 Total Protein 8.4 g/dL (6.4-8.2) H 06/14/19 14:05 Albumin 3.8 g/dL (3.4-5.0) 06/14/19 14:05 Procalcitonin 0.7 ng/mL 06/14/19 14:05 TSH 0.30 uIU/mL (0.36-3.74) L 06/15/19 06:48 Free T4 0.92 ng/dL (0.76-1.46) 06/15/19 06:48 Urine Color Yellow (Yellow) 06/14/19 18:02 Urine Clarity Clear (Clear) 06/14/19 18:02 Urine pH 5.5 (5-8) 06/14/19 18:02 Ur Specific Ages [place] <= 1.005 (1.005-1.025) 06/14/19 18:02 Urine Protein Negative mg/dL (Negative) 06/14/19 18:02 Urine Ketones Negative mg/dL (Negative) 06/14/19 18:02 Urine Blood Negative (Negative) 06/14/19 18:02 Urine Nitrite Negative (Negative) 06/14/19 18:02 Urine Bilirubin Negative (Negative) 06/14/19 18:02 Urine Urobilinogen 0.2 EU/dL (Up TO 0.2) 06/14/19 18:02 Ur Leukocyte Esterase Negative (Negative) 06/14/19 18:02 Urine Glucose Negative mg/dL (Negative) 06/14/19 18:02 Ethyl Alcohol < 3.0 mg/dL (<3) 06/14/19 14:02 echo: Technically adequate study Left ventricle is normal in size and wall thickness. Estimated ejection fraction is 55 to 60%. There are no segmental wall motion abnormalities The left atrium is moderately dilated The right ventricle is mildly dilated with normal systolic function. Right atr ium is top normal size The aortic valve is trileaflet and sclerotic. There is mild to moderate aortic stenosis with a mean gradient of 14 and a calculated aortic valve area of 1.1 cm???. There is no aortic regurgitation There is mild mitral and tricuspid regurgitation. There is trace physiologic pulmonic regurgitation The ascending aorta is borderline dilated measuring 3.66 cm
[2019-06-15] MEDS: Normal Saline 1,000 ML 75 ML IV (13:41)
--- NOTE | 2019-06-15 14:31 | CHAPLAIN ---
Alfonzo was sitting up in his chair when I visited. He said he is tired of being able to only go from his bed to his chair. Alfonzo lives in the [facility] [address] [place] [facility] [place] He doesn't expect to have have any visitors while he's here, and hopes he'll only be here a day or two more.
[2019-06-15] MEDS: cefTRIAXone 1 GM/50 ML BAG IVPB (16:16)
--- NOTE | 2019-06-15 17:03 | PDOC.CMIN ---
- If Service Date Differs Date of service: 06/15/19 Time of Service: 17:03 Care Management Initial Assess REASON FOR HOSPITALIZATION:: CAP, Acute Exacerbation of COPD PAST MEDICAL HISTORY/PAST SURGICAL HISTORY:: Medical History (Updated 06/14/19 @ 19:23 by Ghislaine Rodriguez MD). Alcohol abuse (Chronic). Atrial fibrillation (Chronic). Hypertension (Chronic). Hypomagnesemia (Acute). Tobacco abuse, in remission (Acute). Surgical History (Updated 06/14/19 @ 19:04 by Ghislaine Rodriguez MD). Hx of appendectomy (Chronic). S/P surgical manipulation of ankle joint (Acute) PREVIOUS FUNCTIONAL STATUS/SOCIAL/FAMILY SUPPORTS:: Alfonzo lives alone on [address] in [facility]. His apartment is near the [facility] office, which he recieves support from. 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 He no longer travels to [place], and lives here [place]. He has friends and neighbors who check in on him. CURRENT FUNCTIONAL STATUS:: Alfonzo was sitting up on the edge of his bed when CM met with him. He reported that he was feeling much better today, and that when he came in he could barely breathe. He stated that he has been by respiratory therapy and they are helping with his breathing. He reported that per MD, he may be able to return home tomorrow. CM will continue to follow. ADVANCE DIRECTIVES:: None on file. Has patient been provided with information about the portal?: No Did the patient sign up for the portal?: No CODE STATUS:: Full Code INSURANCE COVERAGE / FINANCIAL ISSUES:: [facility]/ [facility] CURRENT HOME/COMMUNITY SERVICES/EQUIPMENT:: Alfonzo doesn't use any equipment at home. He receives support from [facility], and he also transports via [facility]. PRIMARY CARE PHYSICIAN:: Alfonzo has had Keith Padron as his PCP, who is no longer seeing patients. Ollie from [facility] called today to confirm that her office has been working on a referral to [facility]. POTENTIAL DISCHARGE NEEDS:: Evaluations for further needs, follow up appointments PATIENT/FAMILY EDUCATION NEEDS:: Review discharge instructions regarding activity levels and medications, discussion of self care needs including ask me three ANTICIPATED BARRIERS TO DISCHARGE:: None identified at this time. TRANSPORTATION:: Alfonzo will transport via private vehicle by [facility]. PLAN:: Anticipate Alfonzo will return home when medically cleared with no additional services. He will transport home via private vehicle, [facility]. He will follow up with his new PCP at [facility]. CM will continue to follow.
[2019-06-15] MEDS: AZITHROMYCIN 500 MG in Normal Saline 250 ML 250 MG IVPB (17:41)
--- NOTE | 2019-06-15 18:22 | NUR.NOTE ---
Nursing Note: patient still is having periods of tachycardia with activity, once seated , his rate recovers relatively quickly, will notify provider if episodes continue
[2019-06-15] MEDS: predniSONE 20 MG TAB 40 MG PO (20:03)
[2019-06-15] MEDS: Metoprolol 5 MG/5 ML VIAL 2.5 MG IVP (21:22)
[2019-06-16] VITALS (7 sets, daily range): BP systolic 127–156; BP diastolic 74–99; PULSE 78–107; RESP 4–24; TEMP 36.5–36.9; O2SAT 91–98
[2019-06-16] MEDS: Heparin 5,000 UNITS/ML VIAL 5000 UNITS SC ×2 (02:37→11:01)
[2019-06-16] MEDS: Albuterol/Ipratropium 3 ML UPD VIAL UPD ×2 (06:40→12:46)
[2019-06-16 07:58] LABS: Abs Immature Grans 0.01 k/cumm (0.0-0.09); Absolute Basophil Count 0.02 k/cumm (0.0-0.2); Absolute Lymphocyte Count 0.66 k/cumm (1.2-3.4); Absolute Monocyte Count 0.47 k/cumm (0.11-0.7); Absolute Neutrophil Count 6.65 k/cumm (1.2-6.7); Basophils % 0.3; HCT 33.8 % (40.0-50.0); HGB 11.2 g/dL (13.5-17.5); Immature Grans % 0.1 %; Lymphocytes % 8.5; Mean Corp. HGB Concentration 33.1 g/dL (32.0-36.0); Mean Corpuscular Hemoglobin 31.6 pg (27.0-33.0); Mean Corpuscular Volume 95.5 fL (80-95); Mean Platelet Volume 8.8 fL (8.0-11.0); Neutrophils % 85.1; Platelet Count 238 x1000/uL (130-400); RBC 3.54 m/cumm (4.50-6.00); RBC Distribution Width 12.6 % (11.8-14.1); White Blood Cell Count 7.81 k/cumm (4.4-10.8)
[2019-06-16 08:21] LABS: Anion Gap 10.1 mmol/L (3-11); BUN 21 mg/dL (7-18); CO2 23.9 mmol/L (21.0-32.0); CREATININE 1.21 mg/dL (0.70-1.30); Calcium 8.2 mg/dL (8.5-10.1); Chloride 103 mmol/L (98-107); Estimated GFR 59.46 (mL/min/1.73m2); Glucose 150 mg/dL (74-106); Magnesium 1.7 mg/dL (1.8-2.4); Potassium 3.8 mmol/L (3.5-5.1); Sodium 137 mmol/L (136-145)
[2019-06-16] MEDS: predniSONE 20 MG TAB 40 MG PO (08:26)
[2019-06-16] MEDS: guaiFENesin 600 MG TABCR PO (08:26)
[2019-06-16] MEDS: Benzonatate 100 MG CAP PO ×2 (08:26→13:34)
[2019-06-16] MEDS: Atenolol 50 MG TAB 100 MG PO (08:26)
[2019-06-16] MEDS: Normal Saline Flush 10 ML SYR IVP ×2 (08:26→11:03)
[2019-06-16] MEDS: Multivitamin TAB 1 TAB PO (08:27)
[2019-06-16] MEDS: Aspirin 81 MG CHEW PO (08:27)
[2019-06-16] MEDS: Thiamine 100 MG TAB PO (08:27)
[2019-06-16] MEDS: Pantoprazole 40 MG VIAL IVP (08:27)
[2019-06-16] MEDS: Folic Acid 1 MG TAB PO (08:27)
[2019-06-16 08:35] LABS: Diff Comment Agrees w/ Instrument; RBC Morphology Normal
[2019-06-16] MEDS: MAGNESIUM SULFATE 2 GM/50 ML BAG IVPB (11:00)
[2019-06-16] MEDS: Atenolol 50 MG TAB PO (14:29)
--- NOTE | 2019-06-16 15:02 | DSE_ITS ---
Date of service: 06/16/19 Time of Service: 15:02 DS: Diagnosis Discharge Diagnosis (1) Sepsis: Status: Acute (2) CAP (community acquired pneumonia): Status: Acute (3) Pulmonary fibrosis: Status: Acute (4) Alcohol abuse: Status: Chronic (5) Hypomagnesemia: Status: Resolved (6) Atrial fibrillation: Status: Chronic (7) HOME (acute kidney injury): Status: Acute (8) Hyponatremia: Status: Acute (9) COPD with acute exacerbation: Status: Suspected Asessment and Plan: being referred for PFTs as outpatient Discharge Plan Disposition Patient Disposition: HOME Condition: Improving Discharge Details Chief Complaint: SOB Clinical Impression: Pneumonia, HOME (acute kidney injury), CHF (congestive heart failure) Reason For Visit: CAP,ACUTE EXACERBATION OF COPD Admit Date/Time: 06/14/19 16:17 Admit Provider: Ghislaine Rodriguez Attending Provider: Ghislaine Rodriguez Primary Care Provider: Keith Padron ED Provider: Shahriar Shaffer Hospital Course Hospital Course: Mr Cooper is a 68 year old male with PMHx of atrial fibrillation, not on anticoagulation, likely underlying COPD, alcohol abuse, hypertension, who was admitted to [facility] hospitalist service on 06/14/2019 with acute bilateral pneumonia causing acute exacerbation of likely underlying COPD and pulmonary fibrosis. The patient was treated with empiric azithromycin and doxycycline as well as systemic steroids and nebulizer treatments. He markedly improved. He is being discharged home with 2 more days of antibiotics and a short burst of steroids. The patient did verbalize that nebulizer treatments seemed more effective for him than his home inhaler - we are discharging him home with a prescription for a nebulizer machine, duoneb treatments, and a referral for PFTs. He does not require oxygen on discharge. His heart rates had been reasonably controlled while he was here, though there were a few episodes that they spiked to 160's. It needs to be noted that this happened because the patient told us he was on atenolol 100 mg PO daily, but in fact his outpatient prescription is for 150 mg PO daily. He is being discharged on his outpatient dose of atenolol. His new PCP should consider ambulatory cardiac monitoring with a zio patch to ensure that his medications do not require additional titration. Finally, the patient did not show signs of active alcohol withdrawal while here. He was given resources for substance abuse and should follow up on this with his PCP as well. Care for patient as well as completion of his discharge summary on day of discharge took 45 minutes. Home Meds and New Rx's Prescriptions: New ipratropium-albuterol 0.5 mg-3 mg(2.5 mg base)/3 mL Solution For Nebulization 3 ml UPD Q4H PRN PRN (Reason: shortness of breath or wheezing) Qty: 90 RF: 0 folic acid 1 mg Tablet 1 mg PO DAILY Qty: 30 RF: 0 guaifenesin [Mucinex] 600 mg Tablet Extended Release 12hr 600 mg PO BID PRN PRN (Reason: cough) Qty: 10 RF: 0 multivitamin [Multiple Vitamins] Tablet 1 tab PO DAILY Qty: 30 RF: 0 prednisone 20 mg Tablet See Rx Instructions .ROUTE .COMPLEX Qty: 4 RF: 0 thiamine mononitrate (vit B1) [Vitamin B-1 (mononitrate)] 100 mg Tablet 100 mg PO DAILY Qty: 30 RF: 0 azithromycin 500 mg tablet 500 mg PO DAILY 3 Days Qty: 3 RF: 0 cefuroxime axetil 500 mg tablet 500 mg PO BID Qty: 7 RF: 0 pantoprazole [Protonix] 40 mg tablet,delayed release (DR/EC) 40 mg PO DAILY Qty: 30 RF: 0 Continued aspirin 81 mg Tablet,Chewable 81 mg PO DAILY RF: 0 cyclobenzaprine 10 mg Tablet 10 mg PO TID PRNRF: 0 atenolol 100 mg Tablet 150 mg PO DAILY RF: 0 albuterol sulfate 90 mcg/actuation Hfa Aerosol Inhaler 2 puff INHALATION Q6H PRNRF: 0 losartan 100 mg Tablet 100 mg PO DAILY RF: 0 Discharge Instructions Instructions: Pulmonary Fibrosis (DC), COPD (Chronic Obstructive Pulmonary Disease) (DC), Bacterial Pneumonia (DC) Additional Instructions: Finish your antibiotics and steroids as prescribed. Return to the hospital with any fever, bleeding, chest pain, or shortness of breath. Stand Alone Forms: Nursing Discharge Form Referrals: Tonia Null [Emergency Nurse] - Loren Mao MD [ NON-[facility] STAFF PHYSICIAN] - (COPD, pulmonary fibrosis) Activity:: Activity as Tolerated Equipment/Supplies:: nebulizer machine Diet:: As Tolerated Discharge Orders Discharge Orders: Discharge Order (Routine); Ordered 06/16/19 Ordered By: Ghislaine Rodriguez Other Ambulatory Orders: PFT ([facility]) (Outpt) (ONCE) Timeframe: [id number] Facility: [facility] - Location: Respiratory Therapy Ordered By: Ghislaine Rodriguez DS: Summary Status at Discharge Functional status at discharge: independent ambulation Overall status at discharge: patient is progressing back to baseline Mental Status: mental status grossly normal Speech and Movement: speech and movement normal Mood: congruent mood Affect: normal affect Exam Narrative Exam Narrative: General: Elderly male, looks older than his stated age, looks better, upbeat, A&Ox3, no increased work of breathing. HEENT: Atraumatic, normocephalic, EOMI, dry MM Cardiovascular: irregularly irregular rhythm, no m/r/g Lungs: nearly CTAB Gastrointestinal: soft, nontender, nondistended Extremities: no e/c/c BLE's Psych Mental Status: mental status grossly normal Speech and Movement: speech and movement normal Mood: congruent mood Affect: normal affect DS: Data Vitals/I&O Vitals and I&O: Vital Signs Temperature 36.9 C 06/16/19 10:56 Temperature Source Tympanic 06/16/19 10:56 Pulse 78 06/16/19 14:30 Pulse Rhythm Regular 06/16/19 04:00 Respiratory Rate 22 06/16/19 12:46 Respiratory Effort Non-Labored 06/16/19 04:00 Respiratory Depth Normal 06/16/19 04:00 Respiratory Pattern Normal 06/16/19 04:00 Blood Pressure 142/92 H 06/16/19 14:30 Blood Pressure Position Sitting 06/14/19 13:46 Pulse Oximetry 98 06/16/19 12:46 Oxygen Delivery Method Room Air 06/16/19 12:46 Oxygen Flow Rate 0 06/16/19 12:46 Pain Level 0 06/16/19 10:56 Comment 06/14/19 14:55 Intake & Output 06/15/19 06/16/19 06/16/19 23:59 11:59 23:59 Intake Total 540 / 2250 905 / 1145 240 / 1145 Output Total 2049 Balance 540 / 750 -1145 / -905 240 / -905 Weight 76.6 kg Intake: IV 300 / 1650 545 / 545 Oral 240 / 600 360 / 600 240 / 600 Output: Urine 2049 Other: Urine Color Yellow Urine Appearance Cloudy Clear Urine Odor Normal Comment Patient voiding ad elmo Voiding in urinal while standing at side of bed Voiding Methods Urinal Urinal Data Completed and Pending Completed studies during hospitalization [Text1]: CXR 06/14/19: No acute pulmonary process. CTA chest 06/14/2019: 1. Patient motion artifact present. 2. No evidence of pulmonary embolism, thoracic aortic dissection or aneurysm. 3. Centrilobular emphysema. 4. Moderate pulmonary fibrosis. 5. Airspace opacities in the lower lobe and right middle lobe. This may reflect edema, pneumonia or atelectasis. Echo 06/15/2019: Technically adequate study Left ventricle is normal in size and wall thickness. Estimated ejection fraction is 55 to 60%. There are no segmental wall motion abnormalities The left atrium is moderately dilated The right ventricle is mildly dilated with normal systolic function. Right atrium is top normal size The aortic valve is trileaflet and sclerotic. There is mild to moderate aortic stenosis with a mean gradient of 14 and a calculated aortic valve area of 1.1 cm???. There is no aortic regurgitation There is mild mitral and tricuspid regurgitation. There is trace physiologic pulmonic regurgitation The ascending aorta is borderline dilated measuring 3.66 cm Labs on day of discharge: Labs from last 24 hours 06/16/19 06/16/19 07:15 07:15 WBC 7.81 D RBC 3.54 L Hgb 11.2 L Hct 33.8 L MCV 95.5 H MCH 31.6 MCHC 33.1 RDW 12.6 Plt Count 238 MPV 8.8 Immature Gran % 0.1 Neutrophils % 85.1 Lymphocytes % 8.5 Monocytes % 6.0 Eosinophils % 0.0 Basophils % 0.3 Absolute Neutrophils 6.65 Absolute Lymphocytes 0.66 L Absolute Monocytes 0.47 Absolute Eosinophils 0.00 Absolute Basophils 0.02 Differential Comment Agrees w/ instrument RBC Morphology Normal Sodium 137 Potassium 3.8 Chloride 103 Carbon Dioxide 23.9 Anion Gap 10.1 BUN 21 H Creatinine 1.21 Estimated GFR/1.73 m2 59.46 Glucose 150 H Calcium 8.2 L Magnesium 1.7 L Preliminary micro results at discharge 06/15/19 04:45 Sputum Culture - Preliminary Sputum Normal Neetu 06/14/19 14:30 Blood Culture - Preliminary Blood NO GROWTH 24 HOURS 06/14/19 14:05 Blood Culture - Preliminary Blood NO GROWTH 24 HOURS PFSH Medical History (Updated 06/16/19 @ 15:04 by Ghislaine Rodriguez MD) Alcohol abuse (Chronic) Atrial fibrillation (Chronic) COPD (chronic obstructive pulmonary disease) (Suspected) Hypertension (Chronic) Hypomagnesemia (Resolved) Tobacco abuse, in remission (Acute) Surgical History (Updated 06/14/19 @ 19:04 by Ghislaine Rodriguez MD) Hx of appendectomy (Chronic) S/P surgical manipulation of ankle joint (Acute) Family History (Updated 06/14/19 @ 19:05 by Ghislaine Rodriguez MD) Paternal Grandmother Diabetes Uncle Cancer patient does not know what type Social History (Updated 06/14/19 @ 19:06 by Ghislaine Rodriguez MD) Smoking/Tobacco Use Status: Former Tobacco Use Quit Date: 04/28/16 Pack-years: 150 Tobacco: How many years used: 50 Alcohol Intake: current Alcohol Intake frequency: 3 or more drinks per day Alcohol type: beer Substance use type: marijuana Details: drinks 6-12 pack beer everyday except the last 3 days
--- NOTE | 2019-06-16 17:39 | PDOC.CMDIS ---
- If Service Date Differs Date of service: 06/16/19 Time of Service: 17:39 LACE Index Scoring Tool - Questions: Length of Stay (in days): 3 Acuity (Admit via E.D.?): Yes Comorbidities: Congestive Heart Failure, Chronic Pulmonary Disease, Mild Liver/Renal Disease E.D. Visits: 1 - Answers: Total Score: 12 Risk of Readmission: High Risk Care Management Discharge Reason for Hospitalization: CAP, Acute Exacerbation of COPD Discharge Plan: Alfonzo will return home with no additional services at this time. He will follow up with his new PCP, which he is being connected with, with support from Ollie at [facility]. CM contacted ABDIEL Marcelo at [facility] to inform her of the new patient. [employer] supplied EUSEBIO Levin with new patient packet from [facility]. CM provided support for Alfonzo to receive his new prescriptions through [facility] in [facility]. Patient/Family Education Needs: Review discharge instructions regarding new medications and activity levels, discussion of self care needs including ask me three
--- NOTE | 2019-06-30 15:39 | PDOC.CMPRO ---
- If Service Date Differs Date of service: 06/30/19 Time of Service: 15:39 Care Management Progress Note [facility] was contacted by [facility] who received a phone call from a pt regarding a prescription refill. CM called the contact, Shanon [place], , who reported that she was calling for her friend, Alfonzo Cooper. Alfonzo was recently discharged from an inpatient stay for acute exacerbation of COPD on 06/16/19. Alfonzo was discharged with a new prescription for a Nebulizer with solution. He was inquiring about a refill for the solution. Alfonzo does not yet have a new PCP, as he was Dr. Padron's patient and didn't get a new PCP prior to him retiring. CM contacted Ollie Fierro, his [facility] coordinator. Ollie stated that she has the paperwork that Alfonzo filled out, but it is not complete. CM advised handing it in to [facility] as long as the section for a request for medical records was signed, which it was, per Ollie. CM asked RT to contact Alfonzo regarding his current medications, as he has an inhaler that can be used in the interim, until he is seen by his new PCP.
== END 2019-06-16 16:40 | disposition home or self-care (01) | DRG 871 ==
LOC: ER 17:16 → MS 17:37
PROVIDERS: Admitting Provider Internal Medicine; Emergency Provider Physician Assistant; PCP General Practice; Visit Provider Internal Medicine
DX: A41.9 Sepsis, unspecified organism (principal); J18.9 Pneumonia, unspecified organism; N17.9 Acute kidney failure, unspecified; J44.1 Chronic obstructive pulmonary disease with (acute) exacerbation; E87.1 Hypo-osmolality and hyponatremia; J44.0 Chronic obstructive pulmonary disease with (acute) lower respiratory infection; E86.0 Dehydration; I08.3 Combined rheumatic disorders of mitral, aortic and tricuspid valves; J84.10 Pulmonary fibrosis, unspecified; F10.10 Alcohol abuse, uncomplicated; E83.42 Hypomagnesemia; I48.91 Unspecified atrial fibrillation; I10 Essential (primary) hypertension; Z23 Encounter for immunization
CPT/HCPCS: 36415; 71275; 80048; 80053; 84145; 87040; 87449; 93005; 93306; 94618; 94640; 96361; 96365; 96367; 99223; 99232; 99239; 99285; 71046; 80320; 81003; 83605; 83735; 83880; 84439; 84443; 84484; 85025; 87070; 87205; 93010; J0456; J0696; J1644; J2930; J3475; J3490; J7512; J7620

== ENCOUNTER 2019-06-26 12:45 | Emergency (ER) | payer MEDICARE, MEDICAID, SELFPAY ==
[2019-06-26 12:44] VITALS: BP 153/92; PULSE 85; RESP 26; TEMP 37.6; O2SAT 100
--- NOTE | 2019-06-26 12:48 | ED.GENADUL_ITS ---
Discharge Plan Disposition Patient Disposition: HOME Condition: Stable Discharge Details Chief Complaint: Dizzy/Sync Clinical Impression: Near syncope, History of pneumonia, Dehydration, On antibiotic therapy Primary Care Provider: Keith Padron ED Provider: Tessie Watson Home Meds and New Rx's Prescriptions: Continued aspirin 81 mg Tablet,Chewable 81 mg PO DAILY RF: 0 cyclobenzaprine 10 mg Tablet 10 mg PO TID PRNRF: 0 atenolol 100 mg Tablet 150 mg PO DAILY RF: 0 albuterol sulfate 90 mcg/actuation Hfa Aerosol Inhaler 2 puff INHALATION Q6H PRNRF: 0 losartan 100 mg Tablet 100 mg PO DAILY RF: 0 ipratropium-albuterol 0.5 mg-3 mg(2.5 mg base)/3 mL Solution For Nebulization 3 ml UPD Q4H PRN PRN (Reason: shortness of breath or wheezing) Qty: 90 RF: 0 folic acid 1 mg Tablet 1 mg PO DAILY Qty: 30 RF: 0 guaifenesin [Mucinex] 600 mg Tablet Extended Release 12hr 600 mg PO BID PRN PRN (Reason: cough) Qty: 10 RF: 0 multivitamin [Multiple Vitamins] Tablet 1 tab PO DAILY Qty: 30 RF: 0 prednisone 20 mg Tablet See Rx Instructions .ROUTE .COMPLEX Qty: 4 RF: 0 thiamine mononitrate (vit B1) [Vitamin B-1 (mononitrate)] 100 mg Tablet 100 mg PO DAILY Qty: 30 RF: 0 cefuroxime axetil 500 mg tablet 500 mg PO BID Qty: 7 RF: 0 pantoprazole [Protonix] 40 mg tablet,delayed release (DR/EC) 40 mg PO DAILY Qty: 30 RF: 0 Discharge Instructions Instructions: Dehydration (ED), Near Syncope (ED), Dizziness (ED) Additional Instructions: Drink plenty of fluids and get plenty of rest. Take your antibiotics and steroids as directed until finished. Call your primary care doctor's office on Friday for reevaluation and for consideration for outpatient mandarin chinese teacher. Return to the emergency department if you develop any worsening or new concerning symptoms. Discharge Data Discharge Physician: Tessie Watson Medical Decision Making 1300 -- 68-year-old male with a history of COPD, tobacco smoker, alcohol abuse, hypertension, atrial fibrillation CHF presents with an episode of near syncope, feeling sweaty with chills while at home today. Recently admitted here for pneumonia and currently still under treatment with steroids and antibiotics. He states he is taking his antibiotics steroids as directed. He denies any chest pain, palpitations. Patient states he did not want to come here and does not feel that this is necessary. He is afebrile. O2 sat 100%. He has scattered wheezing and rhonchi but no acute respiratory distress. No lower extremity edema. EKG done on arrival notes a rate of 91, A. fib with no acute ST ischemic changes. Differential diagnosis includes dehydration, symptoms consistent with his current pneumonia diagnosis, electrolyte abnormality, influenza, UTI. Will check screening labs, urinalysis, influenza, chest x-ray and give fluids and DuoNeb and reassess. 1430 --labs and imaging reviewed. White blood cell count 15, increased compared to recent admission likely due to steroids. Lactate 1.7. Troponin negative. Flu negative. Urinalysis negative. Chest x-ray no significant change compared to 06/14/2019 noting pneumonia. Lung sounds improved. Patient is requesting to go home. He is hemodynamically stable. Discussed with patient that his symptoms could be due to dehydration in the setting of his current pneumonia. He is advised to increase fluids and hold on drinking coffee and alcohol which he has continued to do. He is advised to call his primary care doctor on Friday for follow-up this week and for referral for outpatient mandarin chinese teacher if symptoms persist. Usual and customary return precautions given prior to discharge. Medical Records Medical records reviewed: Yes I reviewed the patient's medical records. Imaging Data Radiologic Study: Radiologist's impression: XR Chest, 2 Views Exam date and time: 06/26/2019 1:45 PM Age: 68 years old Clinical indication: Other: Syncope, recent pna TECHNIQUE: Imaging protocol: XR of the chest Views: 2 views. COMPARISON: CR XR CHEST 2V PA LATERAL 06/14/2019 2:48 PM FINDINGS: Lungs: Right lower lobe airspace disease. Mild left basilar airspace disease. No significant change since 06/14/2019. Hyperinflation consistent with COPD. Pleural space: Unremarkable. No pleural effusion. No pneumothorax. Heart/Mediastinum: Unremarkable. No cardiomegaly. Bones/joints: Degenerative thoracic spine change. Bilateral shoulder joint degenerative features. IMPRESSION: 1. Hyperinflation suggesting COPD. 2. Bibasilar airspace disease without significant change since 06/14/2019 suggesting bilateral pneumonia. Cannot exclude a component of chronic lung scarring. Lab Data Lab results reviewed: Yes I reviewed the patient's lab results. Labs: 06/26/19 13:55 Nasopharynx Influenza Types A,B Antigen - Final Laboratory Tests Range/Units 06/26/19 06/26/19 06/26/19 13:05 13:05 13:05 WBC (4.4-10.8) k/cumm 15.63 H RBC (4.50-6.00) m/cumm 3.81 L Hgb (13.5-17.5) g/dL 12.0 L Hct (40.0-50.0) % 36.8 L MCV (80-95) fL 96.6 H MCH (27.0-33.0) pg 31.5 MCHC (32.0-36.0) g/dL 32.6 RDW (11.8-14.1) % 12.8 Plt Count (130-400) x1000/uL 605 H D MPV (8.0-11.0) fL 8.2 Immature Gran % % 0.6 Neutrophils % 80.9 Lymphocytes % 9.0 Monocytes % 8.5 Eosinophils % 0.7 Basophils % 0.3 Absolute Neutrophils (1.2-6.7) k/cumm 12.64 H Absolute Lymphocytes (1.2-3.4) k/cumm 1.41 Absolute Monocytes (0.11-0.7) k/cumm 1.33 H Absolute Eosinophils (0.0-0.7) k/cumm 0.11 Absolute Basophils (0.0-0.2) k/cumm 0.05 Sodium (136-145) mmol/L 134 L Potassium (3.5-5.1) mmol/L 4.9 Chloride (98-107) mmol/L 99 Carbon Dioxide (21.0-32.0) mmol/L 25.4 Anion Gap (3-11) mmol/L 9.6 BUN (7-18) mg/dL 10 Creatinine (0.70-1.30) mg/dL 1.37 H Estimated GFR/1.73 m2 (mL/min/1.73m2) 51.52 Glucose (74-106) mg/dL 123 H Lactate (0.6-1.4) mmol/L 1.7 H Calcium (8.5-10.1) mg/dL 8.4 L Magnesium (1.8-2.4) mg/dL 1.9 Total Bilirubin (0.2-1.0) mg/dL 0.6 AST (15-37) U/L 32 ALT (16-63) U/L 20 Alkaline Phosphatase (46-116) U/L 78 Troponin I (<0.06) ng/Ml < 0.05 Total Protein (6.4-8.2) g/dL 8.2 Albumin (3.4-5.0) g/dL 3.0 L Urine Color (Yellow) Urine Clarity (Clear) Urine pH (5-8) Ur Specific [place] (1.005-1.025) Urine Protein (Negative) mg/dL Urine Ketones (Negative) mg/dL Urine Blood (Negative) Urine Nitrite (Negative) Urine Bilirubin (Negative) Urine Urobilinogen (Up TO 0.2) EU/dL Ur Leukocyte Esterase (Negative) Urine Glucose (Negative) mg/dL Range/Units 06/26/19 14:30 WBC (4.4-10.8) k/cumm RBC (4.50-6.00) m/cumm Hgb (13.5-17.5) g/dL Hct (40.0-50.0) % MCV (80-95) fL MCH (27.0-33.0) pg MCHC (32.0-36.0) g/dL RDW (11.8-14.1) % Plt Count (130-400) x1000/uL MPV (8.0-11.0) fL Immature Gran % % Neutrophils % Lymphocytes % Monocytes % Eosinophils % Basophils % Absolute Neutrophils (1.2-6.7) k/cumm Absolute Lymphocytes (1.2-3.4) k/cumm Absolute Monocytes (0.11-0.7) k/cumm Absolute Eosinophils (0.0-0.7) k/cumm Absolute Basophils (0.0-0.2) k/cumm Sodium (136-145) mmol/L Potassium (3.5-5.1) mmol/L Chloride (98-107) mmol/L Carbon Dioxide (21.0-32.0) mmol/L Anion Gap (3-11) mmol/L BUN (7-18) mg/dL Creatinine (0.70-1.30) mg/dL Estimated GFR/1.73 m2 (mL/min/1.73m2) Glucose (74-106) mg/dL Lactate (0.6-1.4) mmol/L Calcium (8.5-10.1) mg/dL Magnesium (1.8-2.4) mg/dL Total Bilirubin (0.2-1.0) mg/dL AST (15-37) U/L ALT (16-63) U/L Alkaline Phosphatase (46-116) U/L Troponin I (<0.06) ng/Ml Total Protein (6.4-8.2) g/dL Albumin (3.4-5.0) g/dL Urine Color (Yellow) Yellow Urine Clarity (Clear) Clear Urine pH (5-8) 7.0 Ur Specific [place] (1.005-1.025) 1.015 Urine Protein (Negative) mg/dL Negative Urine Ketones (Negative) mg/dL Negative Urine Blood (Negative) Negative Urine Nitrite (Negative) Negative Urine Bilirubin (Negative) Negative Urine Urobilinogen (Up TO 0.2) EU/dL 2.0 H Ur Leukocyte Esterase (Negative) Negative Urine Glucose (Negative) mg/dL 100 ECG Data Attestation: I personally reviewed and interpreted this ECG (s) as follows: Interpretation: Rate of 91, A. fib, no acute ST elevation or depression. QTc 435. QRS 84. HPI General Mode of arrival: EMS . Date/Time Provider Initiated Documentation: 06/26/19 12:56 . Limitations to Documentation: no limitations . Information obtained by: patient . HPI Narrative: Patient is a 68-year-old male with a history of atrial fibrillation, COPD, hypertension, tobacco smoker, alcohol abuse presenting for questionable syncopal episodes at home today. EMS was called for a patient in and out of responsiveness at home. Patient denies any syncopal episodes and that he was totally aware of what was happening at home but that he may have felt close to passing out. He states he was sitting on the couch at a friend's house when he felt sweaty and had the chills. He was recently admitted here for pneumonia and discharged a few days ago. He has been taking his steroids and antibiotics as directed. He states he has been drinking 1 beer daily and states that he had one this morning. He states he also has been drinking plenty of water. He states he did not feel like it was necessary to come here as he feels that overall his symptoms have been improving. He states he still has a cough and occasional shortness of breath but denies any sputum production, chest pain or known fevers. He denies any abdominal pain or urinary symptoms. Related Data Home Medications Medication Instructions Recorded Confirmed albuterol sulfate 2 puff INHALATION Q6H PRN 06/14/19 06/26/19 aspirin 81 mg PO DAILY 06/14/19 06/26/19 atenolol 150 mg PO DAILY 06/14/19 06/26/19 cyclobenzaprine 10 mg PO TID PRN 06/14/19 06/26/19 losartan 100 mg PO DAILY 06/14/19 06/26/19 cefuroxime axetil 500 mg PO BID #7 tab 06/16/19 06/26/19 folic acid 1 mg PO DAILY #30 tab 06/16/19 06/26/19 guaifenesin [Mucinex] 600 mg PO BID PRN PRN #10 tab 06/16/19 06/26/19 ipratropium-albuterol 3 ml UPD Q4H PRN PRN #90 ml 06/16/19 06/26/19 multivitamin [Multiple Vitamins] 1 tab PO DAILY #30 tab 06/16/19 06/26/19 pantoprazole [Protonix] 40 mg PO DAILY #30 tab 06/16/19 06/26/19 prednisone See Rx Instructions .ROUTE 06/16/19 06/26/19 .COMPLEX #4 tab thiamine mononitrate (vit B1) 100 mg PO DAILY #30 tab 06/16/19 06/26/19 [Vitamin B-1 (mononitrate)] Previous Rx's Medication Instructions Recorded cefuroxime axetil 500 mg PO BID #7 tab 06/16/19 folic acid 1 mg PO DAILY #30 tab 06/16/19 guaifenesin [Mucinex] 600 mg PO BID PRN PRN #10 tab 06/16/19 ipratropium-albuterol 3 ml UPD Q4H PRN PRN #90 ml 06/16/19 multivitamin [Multiple Vitamins] 1 tab PO DAILY #30 tab 06/16/19 pantoprazole [Protonix] 40 mg PO DAILY #30 tab 06/16/19 prednisone See Rx Instructions .ROUTE 06/16/19 .COMPLEX #4 tab thiamine mononitrate (vit B1) 100 mg PO DAILY #30 tab 06/16/19 [Vitamin B-1 (mononitrate)] Allergies Allergy/AdvReac Type Severity Reaction Status Date / Time Penicillins Allergy Unknown Unverified 06/26/19 12:56 General ANETA: 2 Review of Systems All systems reviewed & are unremarkable except as noted in HPI and below Constitutional Constitutional: Reports as per HPI, Reports chills and Denies fever(s) Eyes Eyes: Denies blurry vision ENT Ears, Nose, Mouth, and Throat: Denies dizziness, Denies sore throat and Denies throat swelling Cardiovascular Cardiovascular: Denies chest pain and Reports dyspnea Respiratory Respiratory: Reports cough and Reports dyspnea Gastrointestinal Gastrointestinal: Denies abdominal pain, Denies diarrhea and Denies vomiting Genitourinary Genitourinary: Denies hematuria and Denies dysuria Musculoskeletal Musculoskeletal: Denies back pain and Denies numbness Integumentary/Breasts Skin/Breast: Denies lesions and Denies rash Neurologic Neurologic: Denies dizziness, Denies focal weakness and Denies numbness Allergic/Immunologic Allergic/Immunologic: Denies throat swelling [facility] Medical History (Updated 06/26/19 @ 15:23 by Tessie Watson DO) Alcohol abuse (Chronic) Atrial fibrillation (Chronic) COPD (chronic obstructive pulmonary disease) (Suspected) Hypertension (Chronic) Hypomagnesemia (Resolved) Tobacco abuse, in remission (Acute) Surgical History (Updated 06/14/19 @ 19:04 by Ghislaine Rodriguez MD) Hx of appendectomy (Chronic) S/P surgical manipulation of ankle joint (Acute) Family History (Updated 06/14/19 @ 19:05 by Ghislaine Rodriguez MD) Paternal Grandmother Diabetes Uncle Cancer patient does not know what type Social History (Updated 06/14/19 @ 19:06 by Ghislaine Rodriguez MD) Smoking/Tobacco Use Status: Former Tobacco Use Quit Date: 04/28/16 Pack-years: 150 Tobacco: How many years used: 50 Alcohol Intake: current Alcohol Intake frequency: 3 or more drinks per day Alcohol type: beer Substance use type: marijuana Exam Const General: cooperative, healthy appearing and no acute distress HENMT Head: normal to inspection Face and sinus: normal facial exam Eyes General: appearance normal, both eyes and all related structures Pupils: PERRL EOM: EOM intact bilaterally Neck Neck: normal visual inspection and No submandibular swelling Lymphatic: no lymphadenopathy noted Chest Chest: normal inspection of the chest and no tenderness Resp Effort & Inspection: normal respiratory effort and able to speak in complete sentences Auscultation: clear to auscultation bilaterally Cardio Rate: regular rate Rhythm: regular rhythm GI Inspection: normal to inspection Palpation: soft, not firm, not rigid and nontender Auscultation: normal bowel sounds Male General Exam: Yes normal external exam Back/Spine/Pelvis Thoracic/Lumbar Spine: thoracic and lumbar spine normal to inspection Pelvis: no pain with anterior-posterior compression Skin General skin exam: no rashes or lesions noted Neuro General: alert, awake and oriented x3 Cognition: normal cognition Speech: speech normal Motor: muscle tone normal throughout Sensory Exam: no sensory deficits noted Extrem General: normal to inspection, full ROM, normal capillary refill, no calf tenderness bilaterally and no edema Psych Appearance: grossly normal Mental Status: mental status grossly normal Speech and Movement: speech and movement normal Affect: normal affect
[2019-06-26] MEDS: Normal Saline Flush 10 ML SYR IVP (13:10)
[2019-06-26] MEDS: Normal Saline 500 ML IV ×2 (13:10→14:05)
[2019-06-26 13:13] LABS: Lactate 1.7 mmol/L (0.6-1.4)
[2019-06-26 13:14] LABS: Absolute Eosinophil Count 0.11 k/cumm (0.0-0.7); Absolute Lymphocyte Count 1.41 k/cumm (1.2-3.4); Absolute Monocyte Count 1.33 k/cumm (0.11-0.7); Absolute Neutrophil Count 12.64 k/cumm (1.2-6.7); Basophils % 0.3; Eosinophils % 0.7; HCT 36.8 % (40.0-50.0); Immature Grans % 0.6 %; Mean Corp. HGB Concentration 32.6 g/dL (32.0-36.0); Mean Corpuscular Hemoglobin 31.5 pg (27.0-33.0); Mean Corpuscular Volume 96.6 fL (80-95); Mean Platelet Volume 8.2 fL (8.0-11.0); Monocytes % 8.5; Neutrophils % 80.9; Platelet Count 605 x1000/uL (130-400); RBC 3.81 m/cumm (4.50-6.00); RBC Distribution Width 12.8 % (11.8-14.1); White Blood Cell Count 15.63 k/cumm (4.4-10.8)
[2019-06-26 13:17] LABS: Absolute Basophil Count 0.05 k/cumm (0.0-0.2)
[2019-06-26 13:32] LABS: ALT 20 U/L (16-63); AST 32 U/L (15-37); Alkaline Phosphatase 78 U/L (46-116); Anion Gap 9.6 mmol/L (3-11); BUN 10 mg/dL (7-18); Bilirubin, Total 0.6 mg/dL (0.2-1.0); CO2 25.4 mmol/L (21.0-32.0); CREATININE 1.37 mg/dL (0.70-1.30); Calcium 8.4 mg/dL (8.5-10.1); Chloride 99 mmol/L (98-107); Estimated GFR 51.52 (mL/min/1.73m2); Glucose 123 mg/dL (74-106); Magnesium 1.9 mg/dL (1.8-2.4); Potassium 4.9 mmol/L (3.5-5.1); Sodium 134 mmol/L (136-145); Total Protein 8.2 g/dL (6.4-8.2); Troponin I < 0.05 ng/Ml (<0.06)
--- NOTE | 2019-06-26 13:51 | DI.RAD_ITS ---
EXAM: XR CHEST 2V PA LATERAL INDICATION: recent pneumonia, syncope today, r/o acute disease COMPARISON: XR CHEST 2V PA LATERAL from 06/14/2019 CT CHEST PE CTA from 06/14/2019 TECHNIQUE: 2D digital imaging was performed. FINDINGS: Heart size is normal. The aorta is mildly tortuous. Again noted are increased interstitial markings at the lung bases, right greater than left. No definite superimposed acute infiltrate is seen. Ther e is no evidence effusions. No pneumothorax is identified. IMPRESSION: Basilar fibrotic changes. No gross evidence of an acute abnormality. DATA REPOSITORY: RADIATION DOSE DELIVERED:
[2019-06-26] MEDS: Albuterol/Ipratropium 3 ML UPD VIAL UPD (13:59)
[2019-06-26 14:11] VITALS: RESP 26
--- NOTE | 2019-06-26 14:19 | DI.VRAD_ITS ---
PROCEDURE INFORMATION: Exam: XR Chest, 2 Views Exam date and time: 06/26/2019 1:45 PM Age: 68 years old Clinical indication: Other: Syncope, recent pna TECHNIQUE: Imaging protocol: XR of the chest Views: 2 views. COMPARISON: CR XR CHEST 2V PA LATERAL 06/14/2019 2:48 PM FINDINGS: Lungs: Right lower lobe airspace disease. Mild left basilar airspace disease. No significant change since 06/14/2019. Hyperinflation consistent with COPD. Pleural space: Unremarkable. No pleural effusion. No pneumothorax. Heart/Mediastinum: Unremarkable. No cardiomegaly. Bones/joints: Degenerative thoracic spine change. Bilateral shoulder joint degenerative features. IMPRESSION: 1. Hyperinflation suggesting COPD. 2. Bibasilar airspace disease without significant change since 06/14/2019 suggesting bilateral pneumonia. Cannot exclude a component of chronic lung scarring. Dictated and Authenticated by: Jesse Brock MD. Ordering:CINDY Kurtz MD
[2019-06-26 14:54] VITALS: BP 135/86; PULSE 97; RESP 20; TEMP 37.1; O2SAT 96
[2019-06-26 14:57] LABS: Bilirubin Negative (Negative); Blood Negative (Negative); Clarity Clear (Clear); Glucose 100 mg/dL (Negative); Ketones Negative (Negative); Leukocyte Esterase Negative (Negative); Nitrite Negative (Negative); Specific Gravity 1.015 (1.005-1.025)
[2019-06-26 15:12] VITALS: BP 124/87; BP 132/87; BP 140/89; PULSE 91; PULSE 96; PULSE 97
== END 2019-06-26 15:33 | disposition home or self-care (01) ==
PROVIDERS: Emergency Provider Physician Assistant; PCP General Practice
DX: R55 Syncope and collapse (principal); E86.0 Dehydration; J18.9 Pneumonia, unspecified organism; I11.0 Hypertensive heart disease with heart failure; I50.9 Heart failure, unspecified; J44.9 Chronic obstructive pulmonary disease, unspecified; Z87.891 Personal history of nicotine dependence
CPT/HCPCS: 80053; 87449; 93005; 94640; 96360; 96361; 99284; 71046; 81003; 83605; 83735; 84484; 85025; 93010; 99283; J7620

== ENCOUNTER 2020-05-01 13:15 | Outpatient (REF) | payer MEDICARE, MEDICAID, SELFPAY ==
[2020-05-01 18:53] LABS: INR 1.1 (0.9-1.1); Prothrombin Time 11.2 sec (9.3-11.0)
[2020-05-01 19:14] LABS: ALT 64 U/L (16-63); AST 95 U/L (15-37); Albumin 4.2 g/dL (3.4-5.0); Alkaline Phosphatase 91 U/L (46-116); Anion Gap 10.6 mmol/L (3-11); BUN 6 mg/dL (7-18); Bilirubin, Total 0.6 mg/dL (0.2-1.0); CO2 25.4 mmol/L (21.0-32.0); CREATININE 1.24 mg/dL (0.70-1.30); Calcium 9.2 mg/dL (8.5-10.1); Calculated LDL 118 mg/dL (<100); Chloride 102 mmol/L (98-107); Cholesterol 212 mg/dL (<200); Estimated GFR 57.63 (mL/min/1.73m2); Glucose 89 mg/dL (74-106); HDL Cholesterol 77 mg/dL (40-60); Potassium 4.4 mmol/L (3.5-5.1); Sodium 138 mmol/L (136-145); Triglyceride 85 mg/dL (<150)
== END 2020-05-01 13:35 ==
LOC: NCHCN 13:15
PROVIDERS: PCP Physician Assistant; Visit Provider Physician Assistant
DX: I10 Essential (primary) hypertension (principal); I50.9 Heart failure, unspecified; F10.10 Alcohol abuse, uncomplicated
CPT/HCPCS: 80053; 80061; 85610

== ENCOUNTER 2021-07-16 14:13 | Outpatient (REF) | payer MEDICARE, MEDICAID, SELFPAY ==
[2021-07-16 19:49] LABS: ALT 38 U/L (16-63); AST 42 U/L (15-37); Alkaline Phosphatase 99 U/L (46-116); Anion Gap 8.5 mmol/L (3-11); BUN 9 mg/dL (7-18); Bilirubin, Total 0.4 mg/dL (0.2-1.0); CO2 23.5 mmol/L (21.0-32.0); CREATININE 1.1 mg/dL (0.70-1.30); Calcium 9.2 mg/dL (8.5-10.1); Calculated LDL 133 mg/dL (<100); Chloride 102 mmol/L (98-107); Cholesterol 224 mg/dL (<200); Glucose 73 mg/dL (74-106); HDL Cholesterol 41 mg/dL (40-60); Potassium 4.5 mmol/L (3.5-5.1); Sodium 134 mmol/L (136-145); Total Protein 8.1 g/dL (6.4-8.2); Triglyceride 252 mg/dL (<150)
[2021-07-16 20:57] LABS: Prothrombin Time 10.4 sec (9.3-11.0)
== END 2021-07-16 14:14 | disposition home or self-care (01) ==
LOC: NCHCN 14:13
PROVIDERS: PCP Physician Assistant; Visit Provider Physician Assistant
DX: I10 Essential (primary) hypertension (principal); I50.9 Heart failure, unspecified
CPT/HCPCS: 80053; 80061; 85610

== ENCOUNTER 2022-04-15 19:18 | Inpatient (IN) | payer MEDICARE, MEDICAID, SELFPAY ==
[2022-04-15 19:32] VITALS: BP 129/91; PULSE 93; RESP 16; TEMP 36.8; O2SAT 96
--- NOTE | 2022-04-15 19:40 | DI.CT_ITS ---
Exam(s) CT LUMBAR SPINE RECONS EXAM: CT LUMBAR SPINE RECONS CLINICAL HISTORY: low back pain. TECHNIQUE: Imaging Protocol: Axial computed tomography images with coronal and sagittal reformatted images were created and reviewed COMPARISON: CT CT CHEST PE CTA from 06/14/2019 FINDINGS: Bones: There are no acute fractures, listhesis, nor pars defects. There are no lytic osseous lesions evident. There is advanced disc space narrowing at L4-5 level, also with vacuum phenomenon within this diminis hed disc space. The L4-5 level exhibits moderate central canal stenosis. Also an element of bilateral foraminal sten osis, more so than is evident at the other levels. There is mild disc space narrowing at L3-4 level. L5-S1 level exhibits normal disc height with no di sc height loss at this level evident. IMPRESSION: 1. Advanced disc space narrowing at L4-5 level. Also central canal stenosis at this level and mild b ilateral foraminal stenosis also evident at this level. 2. No fractures nor listhesis evident. 3. RADIATION DOSE DELIVERED: 620.35 mGy.cm Total DLP DATA REPOSITORY: All CT scans at this facility are submitted to the National Radiology Data Registry (NRDR) Dose Index Registry (DIR) with the [employer] ([employer]). RADIATION OPTIMIZATION: All CT scans at this facility use at least one of these dose optimization te chniques: automated exposure control; mA and/or kV adjustment per patient size (includes targeted exa ms where dose is matched to clinical indication); or iterative reconstruction.
--- NOTE | 2022-04-15 19:42 | ED.GENADUL_ITS ---
Discharge Plan Disposition Patient Disposition: Admit to [facility] Condition: Stable Discharge Details Chief Complaint: Nk/Back Pain Clinical Impression: Colonic mass, Large bowel obstruction Primary Care Provider: Ed Wray ED Provider: Benitez Vance Home Meds and New Rx's Prescriptions: No Action aspirin 81 mg Tablet,Chewable 81 mg PO DAILY cyclobenzaprine 10 mg Tablet 10 mg PO TID PRN atenolol 100 mg Tablet 150 mg PO DAILY albuterol sulfate 90 mcg/actuation Hfa Aerosol Inhaler 2 puff INHALATION Q6H PRN losartan 100 mg Tablet 100 mg PO DAILY ipratropium-albuterol 0.5 mg-3 mg(2.5 mg base)/3 mL Solution For Nebulization 3 ml UPD Q4H PRN PRN (Reason: shortness of breath or wheezing) Qty: 90 0RF folic acid 1 mg Tablet 1 mg PO DAILY Qty: 30 0RF guaifenesin [Mucinex] 600 mg Tablet Extended Release 12hr 600 mg PO BID PRN PRN (Reason: cough) Qty: 10 0RF multivitamin [Multiple Vitamins] Tablet 1 tab PO DAILY Qty: 30 0RF prednisone 20 mg Tablet See Rx Instructions .ROUTE .COMPLEX Qty: 4 0RF Rx Instructions: 40 mg PO daily x 1 day, then 20 mg PO daily x 2 days, then stop thiamine mononitrate (vit B1) [Vitamin B-1 (mononitrate)] 100 mg Tablet 100 mg PO DAILY Qty: 30 0RF cefuroxime axetil 500 mg tablet 500 mg PO BID Qty: 7 0RF pantoprazole [Protonix] 40 mg tablet,delayed release (DR/EC) 40 mg PO DAILY Qty: 30 0RF Medical Decision Making 71-year-old male with past medical history of COPD, alcohol abuse, h ypertension, atrial fibrillation, CHF, not on any blood thinners, appendectomy, presents today for evaluation of back and abdominal pain. Patient states that has been going on for the last 2 days. He is very nonspecific in regards to the descriptors but does state that it feels like there is occasional electrical shocks in his abdomen. He denies any vomiting. He denies any new chest pain or shortness of breath. He states that he does feel slightly constipated but denies any diarrhea. No other complaints at this time. No other modifying factors. Physical exam demonstrates well-appearing male. No abdominal tenderness, mild midline spine tenderness. Differential is broad, concern for intra-abdominal pathology versus spinal injury is on the differential. Will get CT scan, basic labs, UA, monitor closely and reassess. 9:[address] scan results have returned, patient shows evidence of colonic distention with concern for mass but splenic flexure suggestive of tumor with potential large bowel obstruction. Discussed the case with Dr. Franco, she agrees on the need for admission. Patient will be admitted for further definitive surgical management. Patient does admit to drinking 2 cans of beer per day. He denies any previous withdrawal or DTs. Patient stable otherwise. I have extensively reviewed the treatment plan with the patient. I have addressed all patient concerns at this time. I have also discussed the plan with the admitting physician and they agree with the current assessment and plan and have agreed to assume responsibility for the patient. All parties demonstrate verbal understanding and agreement with our assessment and plan at this time. The documentation in this chart was dictated using [employer] dictation software. Please excuse any dictation errors. FINDINGS: Liver: Fatty infiltration No mass. Gallbladder and bile ducts: Normal. No calcified stones. No ductal dilation. Pancreas: Normal. No ductal dilation. Spleen: Normal. No splenomegaly. Adrenal glands: Normal. No mass. Kidneys and ureters: Normal. No hydronephrosis. Stomach and bowel: Colonic distention involving the ascending and transverse portions. Relative narrowing/decompression at the splenic flexure Appendix: No evidence of appendicitis. Intraperitoneal space: Unremarkable. No free air. No significant fluid collection. Vasculature: Unremarkable. No abdominal aortic aneurysm. Lymph nodes: Unremarkable. No enlarged lymph nodes. Urinary bladder: Unremarkable as visualized. Reproductive: Unremarkable as visualized. Bones/joints: Unremarkable. No acute fracture. Soft tissues: Unremarkable. IMPRESSION: Colonic distention with relative change of caliber at the splenic flexure which may represent under distension. Underlying lesion not excluded. Partial large bowel obstruction can not be completely excluded Thank you for allowing us to participate in the care of your patient. Dictated and Authenticated by: Christopher Mathur MD 04/15/2022 9:16 PM Eastern Time ([place] & [place]) FINDINGS: Bones/joints: No acute fracture. Loss of lumbar lordosis is presumed degenerative Severe foraminal stenosis and moderate central canal stenosis at L4-L5 Soft tissues: Unremarkable. IMPRESSION: Degenerative changes most pronounced at L4-L5 Thank you for allowing us to participate in the care of your patient. Dictated and Authenticated by: Christopher Mathur MD 04/15/2022 9:12 PM Eastern Time ([place] & [place]) HPI General Date/Time Provider Initiated Documentation: 04/15/22 19:20 . HPI Narrative: 71-year-old male with past medical history of COPD, alcohol abuse, hypertension, atrial fibrillation, CHF, not on any blood thinners, appendectomy, presents today for evaluation of back and abdominal pain. Patient states that has been going on for the last 2 days. He is very nonspecific in regards to the descriptors but does state that it feels like there is occasional electrical shocks in his abdomen. He denies any vomiting. He denies any new chest pain or shortness of breath. He states that he does feel slightly constipated but denies any diarrhea. No other complaints at this time. No other modifying factors. Related Data Home Medications Medication Instructions Recorded Confirmed albuterol sulfate 90 mcg/actuation 2 puff inhalation Q6H PRN 06/14/19 06/26/19 aerosol inhaler aspirin 81 mg chewable tablet 81 mg PO DAILY 06/14/19 06/26/19 atenolol 100 mg tablet 150 mg PO DAILY 06/14/19 06/26/19 cyclobenzaprine 10 mg tablet 10 mg PO TID PRN 06/14/19 06/26/19 losartan 100 mg tablet 100 mg PO DAILY 06/14/19 06/26/19 cefuroxime axetil 500 mg tablet 500 mg PO BID #7 tabs 06/16/19 06/26/19 folic acid 1 mg tablet 1 mg PO DAILY #30 tabs 06/16/19 06/26/19 guaifenesin 600 mg tablet, 600 mg PO BID PRN PRN cough #10 06/16/19 06/26/19 extended release 12 hr (Mucinex) tabs ipratropium 0.5 mg-albuterol 3 mg 3 ml UPD Q4H PRN PRN shortness of 06/16/19 06/26/19 (2.5 mg base)/3 mL nebulization breath or wheezing #90 mL soln multivitamin (Multiple Vitamins 1 tab PO DAILY #30 tabs 06/16/19 06/26/19 tablet) pantoprazole 40 mg tablet,delayed 40 mg PO DAILY #30 tabs 06/16/19 06/26/19 release (Protonix) prednisone 20 mg tablet See Rx Instructions .Route 06/16/19 06/26/19 .COMPLEX #4 tabs thiamine mononitrate (vit B1) 100 100 mg PO DAILY #30 tabs 06/16/19 06/26/19 mg tablet (Vitamin B-1 (mononitrate)) Previous Rx's Medication Instructions Recorded cefuroxime axetil 500 mg tablet 500 mg PO BID #7 tabs 06/16/19 folic acid 1 mg tablet 1 mg PO DAILY #30 tabs 06/16/19 guaifenesin 600 mg tablet, 600 mg PO BID PRN PRN cough #10 06/16/19 extended release 12 hr (Mucinex) tabs ipratropium 0.5 mg-albuterol 3 mg 3 ml UPD Q4H PRN PRN shortness of 06/16/19 (2.5 mg base)/3 mL nebulization breath or wheezing #90 mL soln multivitamin (Multiple Vitamins 1 tab PO DAILY #30 tabs 06/16/19 tablet) pantoprazole 40 mg tablet,delayed 40 mg PO DAILY #30 tabs 06/16/19 release (Protonix) prednisone 20 mg tablet See Rx Instructions .Route 06/16/19 .COMPLEX #4 tabs thiamine mononitrate (vit B1) 100 100 mg PO DAILY #30 tabs 06/16/19 mg tablet (Vitamin B-1 (mononitrate)) Allergies Allergy/AdvReac Type Severity Reaction Status Date / Time Penicillins Allergy Unknown Unverified 06/26/19 12:56 General Stated Complaint: Nk/Back Pain ANETA: 3 Review of Systems All systems reviewed & are unremarkable except as noted in HPI and below PFSH All Active Problems (Updated 04/15/22 @ 21:49 by Benitez Vance DO) Colonic mass (Acute) Large bowel obstruction (Acute) Hyponatremia (Acute) Discharge planning issues (Acute) DVT prophylaxis (Acute) CAP (community acquired pneumonia) (Acute) Pulmonary fibrosis (Acute) Sepsis (Acute) Alcohol abuse (Chronic) Hypertension (Chronic) Atrial fibrillation (Chronic) Pneumonia (Acute) HOME (acute kidney injury) (Acute) CHF (congestive heart failure) (Chronic) Medical History Tobacco abuse, in remission Surgical History Hx of appendectomy S/P surgical manipulation of ankle joint Family History Paternal Grandmother Diabetes Uncle Cancer patient does not know what type Social History Smoking/Tobacco Use Status: Former Tobacco Use Quit Date: 04/28/16 Pack-years: 150 Tobacco: How many years used: 50 Smoking risk assessment performed?: Yes Alcohol Intake: current Alcohol Intake frequency: 3 or more drinks per day Alcohol type: beer Substance use type: marijuana Do you feel safe at home: Yes Do you feel safe in your relationship?: Yes Exam Narrative Exam Narrative: 1.Const: Well-nourished, Well-developed, appearing stated age 2.Eyes: PERRL, no conjunctival injection, and symmetrical lids. 3.ENT: Atraumatic external nose and ears. Moist MM. Neck: Symmetric, trachea midline, No thyromegaly. 4.CVS: +S1/S2, No murmurs or gallops. Peripheral pulses 2+ and equal in all extremities. Brisk capillary refill in all extremities. 5.RESP: Unlabored respiratory effort. Clear to auscultation bilaterally. No wheezes rales or rhonchi 6.GI: Soft, Nontender/Nondistended, No hepatosplenomegaly. No guarding or rebound. 7.MSK: Normocephalic/Atraumatic, Extremities w/o deformity or ttp No cyanosis or clubbing, Normal movement of all extremities. Mild midline tenderness of the lumbar spine throughout. No deformity though. 8.Skin: Warm, Dry. No rashes or lesions. 9.Neuro: cementer II-XII grossly intact. Sensation grossly intact, no focal neurologic deficits. 10.Psych: (AAO) x3. Appropriate mood and affect Course Vital Signs Vital signs: Vital Signs Temperature 36.8 C 04/15/22 19:32 Pulse 93 H 04/15/22 19:32 Respiratory Rate 16 04/15/22 19:32 Blood Pressure 129/91 H 04/15/22 19:32 Pulse Oximetry 96 04/15/22 19:32 Temperature 36.8 C 04/15/22 19:32 Temperature Source Oral 04/15/22 19:32 Pulse 93 H 04/15/22 19:32 Respiratory Rate 16 04/15/22 19:32 Respiratory Effort 04/15/22 19:39 Blood Pressure 129/91 H 04/15/22 19:32 Blood Pressure Position Sitting 04/15/22 19:32 Pulse Oximetry 96 04/15/22 19:32 Oxygen Delivery Method Room Air 04/15/22 19:32 Oxygen Flow Rate 0 04/15/22 19:32 Pain Level 9 04/15/22 19:39
--- NOTE | 2022-04-15 19:45 | DI.CT_ITS ---
Exam(s) CT ABDOMEN PELVIS WO EXAM: CT ABDOMEN PELVIS WO CLINICAL HISTORY: lower abd pain and back pain. TECHNIQUE: Imaging Protocol: Axial computed tomography images with coronal and sagittal reformatted images were created and reviewed CONTRAST MATERIAL: Intravenous: none Oral: None COMPARISON: MR MRI - LUMBAR SPINE WO CONTRAST from 10/19/[address] CHEST PE CTA from 06/14/[address] LUMBAR SPINE RECONS from 04/15/2022 FINDINGS: VISUALIZED LUNG BASES: Chronic appearing interstitial disease noted in both lung bases. There are no pleural effusions.. ABDOMEN: There is no ascites. LIVER: There are no obvious focal hepatic lesions evident of this noninfused study. GALLBLADDER/BILIARY: No obvious gallbladder pathology. CBD is not dilated. PANCREAS: No evidence of pancreatic mass nor dilatation of the pancreatic duct. SPLEEN: Spleen is not enlarged. No obvious intrasplenic lesions. ADRENALS: Right adrenal gland unremarkable. There is a well-defined nodule in the medial limb of the right adrenal gland measuring 1.7 by 1.4 cm. Average density measurements are 14 HU. Difficult to compared to prior CT scan of 2019 as there was too much respiratory motion artifact on the prior stud y for accurate assessment of the adrenal glands on the prior study. KIDNEYS:No cysts evident. No solid renal masses. No calculi nor hydronephrosis. . ABDOMINAL AORTA: Calcified but not enlarged. LYMPH NODES: There is no retroperitoneal nor paraaortic adenopathy. ABDOMINAL WALL: No evidence of significant anterior abdominal wall nor inguinal hernia. GI: No evidence of small-bowel obstruction. However, there is gaseous distension the cecum and entir e ascending-right colon as well as the hepatic flexure and transverse colon. Possible circular mural lesion seen in the proximal descending colon on the left side (series 3/images [id number]). There is air distal to this level in the redundant sigmoid. There is no significant sigmoid diverticular disease . PELVIS: LYMPH NODES: There is no intrapelvic nor inguinal adenopathy. GI: Appendix not identified.Single air-filled diverticulum in the sigmoid. URINARY BLADDER: No calculi nor obvious masses evident REPRODUCTIVE: Prostate not enlarged. OSSEOUS: No significant osseous lesions. IMPRESSION: 1. The colon appears distended to the splenic flexure region and although there is air in the colon d istal to this level, there is a subtle focal narrowing of the colon at this level. Recommend colonos copy to exclude neoplasm at this level in the left side of the colon. 2. There is a small 17 x 14 millimeter nodule in the left adrenal gland, possibly incidental adenoma. Right adrenal gland unremarkable. 3. No ascites. RADIATION DOSE DELIVERED: Total DLP DATA REPOSITORY: All CT scans at this facility are submitted to the National Radiology Data Registry (NRDR) Dose Index Registry (DIR) with the [employer] (ACR). RADIATION OPTIMIZATION: All CT scans at this facility use at least one of these dose optimization te chniques: automated exposure control; mA and/or kV adjustment per patient size (includes targeted exa ms where dose is matched to clinical indication); or iterative reconstruction.
[2022-04-15 20:01] LABS: Bilirubin Negative (Negative); Blood Negative (Negative); Clarity Sl Cloudy (Clear); Glucose Negative (Negative); Ketones Trace mg/dL (Negative); Leukocyte Esterase Negative (Negative); Nitrite Negative (Negative); Specific Gravity 1.025 (1.005-1.025)
[2022-04-15 20:09] LABS: Bacteria Negative HPF (Negative); C & S Indicated? No; Casts Negative LPF (Negative); Crystals Negative HPF (Negative); Epithelial Cells Few HPF (Negative); Mucus Trace (Negative); RBC 0-2 HPF (0-2); WBC 0-2 HPF (0-5)
--- NOTE | 2022-04-15 21:13 | DI.VRAD_ITS ---
PROCEDURE INFORMATION: Exam: CT Lumbar Spine Without Contrast Exam date and time: 04/15/2022 8:24 PM Age: 71 years old Clinical indication: Other: Low back pain TECHNIQUE: Imaging protocol: Computed tomography of the lumbar spine without contrast. Radiation optimization: All CT scans at this facility use at least one of these dose optimization techniques: automated exposure control; mA and/or kV adjustment per patient size (includes targeted exams where dose is matched to clinical indication); or iterative reconstruction. COMPARISON: No relevant prior studies available. FINDINGS: Bones/joints: No acute fracture. Loss of lumbar lordosis is presumed degenerative Severe foraminal stenosis and moderate central canal stenosis at L4-L5 Soft tissues: Unremarkable. IMPRESSION: Degenerative changes most pronounced at L4-L5 Dictated and Authenticated by: Christopher Mathur MD. Ordering:REYNA Marquis MD
--- NOTE | 2022-04-15 21:17 | DI.VRAD_ITS ---
PROCEDURE INFORMATION: Exam: CT Abdomen And Pelvis Without Contrast Exam date and time: 04/15/2022 8:24 PM Age: 71 years old Clinical indication: Other: Lower abdominal pain and low back pain TECHNIQUE: Imaging protocol: Computed tomography of the abdomen and pelvis without contrast. Radiation optimization: All CT scans at this facility use at least one of these dose optimization techniques: automated exposure control; mA and/or kV adjustment per patient size (includes targeted exams where dose is matched to clinical indication); or iterative reconstruction. COMPARISON: CT CHEST PE CTA 06/14/2019 3:38 PM FINDINGS: Liver: Fatty infiltration No mass. Gallbladder and bile ducts: Normal. No calcified stones. No ductal dilation. Pancreas: Normal. No ductal dilation. Spleen: Normal. No splenomegaly. Adrenal glands: Normal. No mass. Kidneys and ureters: Normal. No hydronephrosis. Stomach and bowel: Colonic distention involving the ascending and transverse portions. Relative narrowing/decompression at the splenic flexure Appendix: No evidence of appendicitis. Intraperitoneal space: Unremarkable. No free air. No significant fluid collection. Vasculature: Unremarkable. No abdominal aortic aneurysm. Lymph nodes: Unremarkable. No enlarged lymph nodes. Urinary bladder: Unremarkable as visualized. Reproductive: Unremarkable as visualized. Bones/joints: Unremarkable. No acute fracture. Soft tissues: Unremarkable. IMPRESSION: Colonic distention with relative change of caliber at the splenic flexure which may represent under distension. Underlying lesion not excluded. Partial large bowel obstruction can not be completely excluded Dictated and Authenticated by: Christopher Mathur MD. Ordering:REYNA Marquis MD
--- NOTE | 2022-04-15 21:45 | RT.EKG_ITS ---
APPROVED REPORT Exam: Resting ECG Reason for Exam: surgery Patient Location: E HR:92 bpm ECG Measurements Heart Rate 92 AXIS [place] [id number] P [id number] QRSd 76 QRS 51 QT 387 T 14 QTc 479 Conclusion Atrial fibrillation...V-rate 64-124, irreg A-activity Borderline ST depression, diffuse leads...ST <-0.07mV, ant/lat/inf Physician: no stemi, minimal lateral st depression
[2022-04-15 21:54] LABS: Source Nasal/Nares
--- NOTE | 2022-04-15 22:01 | W.PM.PROGNOT ---
Date of Service Date of service: 04/15/22 Time of Service: 22:02 Assessment and Plan Assessment and plan (1) Colonic mass: Status: Acute (2) Large bowel obstruction: Status: Acute Assessment and plan: NGT decompression w/ gastrografin Challenge tonight via ngt (clamp for 1 hr and encourage walking) adn film in the am possible colonascopy in am. labs are still pd (3) COPD (chronic obstructive pulmonary disease): Status: Suspected Assessment and plan: unclear if pt is still on prednisone taper for acute COPD exac. (4) Alcohol abuse: Status: Chronic Assessment and plan: 2 drinks daily follow CIWA protocol (5) Hypertension: Status: Chronic (6) Atrial fibrillation: Status: Chronic (7) HOME (acute kidney injury): Status: Acute (8) CHF (congestive heart failure): Status: Chronic (9) Tobacco abuse, in remission: (10) ANGUIANO (nonalcoholic steatohepatitis): Status: Acute (11) Aortic atherosclerosis: Status: Acute (12) Pulmonary fibrosis: Status: Acute Subjective Subjective Interval history since last seen: Patient is a 71-year-old white male who complained to the emergency room tonight complaining of abdominal pain and distention. As medical history is significant for COPD, pulmonary fibrosis, alcohol abuse, hypertension, A. fib, and CHF. He does not appear to get much of his health care done at [facility]. He does see to come to our ER however. BMI is 23 he is allergic to penicillin. He drinks 2 drinks a day. He is a former smoker. Full consullt to follow in am. We may need CE, ECHO 06/17 Conclusion Technically adequate study Left ventricle is normal in size and wall thickness.? Estimated ejection fraction is 55 to 60%.? There are no segmental wall motion abnormalities The left atrium is moderately dilated The right ventricle is mildly dilated with normal systolic function.? Right atrium is top normal size The aortic valve is trileaflet and sclerotic.? There is mild to moderate aortic stenosis with a mean gradient of 14 and a calculated aortic valve area of 1.1 cm???.? There is no aortic regurgitation There is mild mitral and tricuspid regurgitation.? There is trace physiologic pulmonic regurgitation The ascending aorta is borderline dilated measuring 3.[address] 04/15/22 FINDINGS: Liver:? Fatty infiltration No mass. Gallbladder and bile ducts: Normal. No calcified stones. No ductal dilation. Pancreas: Normal. No ductal dilation. Spleen: Normal. No splenomegaly. Adrenal glands: Normal. No mass. Kidneys and ureters: Normal. No hydronephrosis. Stomach and bowel:? Colonic distention involving the ascending and transverse portions. Relative narrowing/decompression at the splenic flexure Appendix: No evidence of appendicitis. Intraperitoneal space: Unremarkable. No free air. No significant fluid collection. Vasculature: Unremarkable. No abdominal aortic aneurysm. Lymph nodes: Unremarkable. No enlarged lymph nodes. Urinary bladder: Unremarkable as visualized. Reproductive: Unremarkable as visualized. Bones/joints: Unremarkable. No acute fracture. Soft tissues: Unremarkable. IMPRESSION: Colonic distention with relative change of caliber at the splenic flexure which may represent under distension. Underlying lesion not excluded. Partial large bowel obstruction can not be completely excluded Objective Last Vital Signs Temp 36.8 C 04/15/22 19:32 Pulse 93 H 04/15/22 19:32 Resp 16 04/15/22 19:32 BP 129/91 H 04/15/22 19:32 Pulse Ox 96 04/15/22 19:32 Laboratory Results - last 24 hr 04/15/22 04/15/22 04/15/22 19:40 19:40 19:50 WBC Cancelled RBC Cancelled Hgb Cancelled Hct Cancelled MCV Cancelled MCH Cancelled MCHC Cancelled RDW Cancelled Plt Count Cancelled MPV Cancelled Immature Gran % Cancelled Neutrophils % Cancelled Band Neutrophils % Cancelled Lymphocytes % Cancelled Atypical Lymphs % Cancelled Monocytes % Cancelled Eosinophils % Cancelled Basophils % Cancelled Metamyelocytes % Cancelled Myelocytes % Cancelled Promyelocytes % Cancelled Other Cells % Cancelled Nucleated RBC % Cancelled Absolute Neutrophils Cancelled Absolute Lymphocytes Cancelled Absolute Monocytes Cancelled Absolute Eosinophils Cancelled Absolute Basophils Cancelled RBC Morphology Cancelled Polychromasia Cancelled Hypochromasia Cancelled Poikilocytosis Cancelled Basophilic Stippling Cancelled Anisocytosis Cancelled Microcytosis Cancelled Macrocytosis Cancelled Spherocytes Cancelled Tear Drop Cells Cancelled Ovalocytes Cancelled Stomatocytes Cancelled [place] Bodies Cancelled [place] Cells/Echinocytes Cancelled Acanthocytes (Spur) Cancelled Schistocytes Cancelled Sodium Cancelled Potassium Cancelled Chloride Cancelled Carbon Dioxide Cancelled Anion Gap Cancelled BUN Cancelled Creatinine Cancelled Est GFR (CKD-EPI 2020) Cancelled Glucose Cancelled Calcium Cancelled Total Bilirubin Cancelled AST Cancelled ALT Cancelled Alkaline Phosphatase Cancelled Total Protein Cancelled Albumin Cancelled Urine Color Yellow Urine Clarity Sl Cloudy Urine pH 6.0 Ur Specific [place] 1.025 Urine Protein 30 H Urine Ketones Trace H Urine Blood Negative Urine Nitrite Negative Urine Bilirubin Negative Urine Urobilinogen 1.0 H Ur Leukocyte Esterase Negative Urine RBC 0-2 Urine WBC 0-2 Ur Epithelial Cells Few Urine Crystals Negative Urine Bacteria Negative Urine Casts Negative Urine Mucus Trace Ur Culture Indicated? No Urine Glucose Negative COVID-19 Source 04/15/22 21:50 WBC RBC Hgb Hct MCV MCH MCHC RDW Plt Count MPV Immature Gran % Neutrophils % Band Neutrophils % Lymphocytes % Atypical Lymphs % Monocytes % Eosinophils % Basophils % Metamyelocytes % Myelocytes % Promyelocytes % Other Cells % Nucleated RBC % Absolute Neutrophils Absolute Lymphocytes Absolute Monocytes Absolute Eosinophils Absolute Basophils RBC Morphology Polychromasia Hypochromasia Poikilocytosis Basophilic Stippling Anisocytosis Microcytosis Macrocytosis Spherocytes Tear Drop Cells Ovalocytes Stomatocytes [place] Bodies Mobile Cells/Echinocytes Acanthocytes (Spur) Schistocytes Sodium Potassium Chloride Carbon Dioxide Anion Gap BUN Creatinine Est GFR (CKD-EPI 2020) Glucose Calcium Total Bilirubin AST ALT Alkaline Phosphatase Total Protein Albumin Urine Color Urine Clarity Urine pH Ur Specific [place] Urine Protein Urine Ketones Urine Blood Urine Nitrite Urine Bilirubin Urine Urobilinogen Ur Leukocyte Esterase Urine RBC Urine WBC Ur Epithelial Cells Urine Crystals Urine Bacteria Urine Casts Urine Mucus Ur Culture Indicated? Urine Glucose COVID-19 Source Nasal/Nares
[2022-04-15 22:29] LABS: COVID-19 PCR Negative (Negative)
[2022-04-15 22:49] LABS: Abs Immature Grans 0.71 10^3/uL (0.0-0.06); HCT 48.5 % (40.0-50.0); HGB 16.1 g/dL (13.5-17.5); MCH 30.9 pg (27.0-33.0); MCHC 33.2 % (32.0-36.0); MCV 93 fL (80-95); Nucleated RBC 0.5 % (0.0-0.3); Platelet Count 172 10^3/uL (130-400); RBC 5.21 10^6/uL (4.36-5.78); RDW 12.9 % (11.8-14.1); RDW-SD 44.4 fL
[2022-04-15 23:03] VITALS: BP 155/95; PULSE 96; RESP 20; TEMP 36.4; O2SAT 90
[2022-04-15 23:04] LABS: Absolute Eosinophil Count 0.25 10^3/uL (0.0-0.7); Absolute Lymphocyte Count 1.26 10^3/uL (1.2-3.4); Absolute Neutrophil Count 10.21 10^3/uL (1.2-6.7); Metamyelocytes % 3
[2022-04-15 23:05] LABS: ALT 63 U/L (16-63); AST 91 U/L (15-37); Albumin 3.3 g/dL (3.4-5.0); Alkaline Phosphatase 185 U/L (46-116); Anion Gap 8.2 mmol/L (3-11); BUN 29 mg/dL (7-18); Bilirubin, Total 0.6 mg/dL (0.2-1.0); CO2 27.8 mmol/L (21.0-32.0); Calcium 9.4 mg/dL (8.5-10.1); Chloride 96 mmol/L (98-107); Diff Comment Manual Differential; Estimated GFR 34.81 (mL/min/1.73m2); Glucose 116 mg/dL (74-106); Potassium 4.5 mmol/L (3.5-5.1); RBC Morphology Normal; Sodium 132 mmol/L (136-145); Total Protein 7.8 g/dL (6.4-8.2)
[2022-04-15 23:06] LABS: ETHANOL BLOOD < 3.0 mg/dL (<10)
[2022-04-15 23:13] VITALS: BP 155/95; PULSE 86; PULSE 87; RESP 20; TEMP 36.4; O2SAT 90
[2022-04-16] VITALS (11 sets, daily range): BP systolic 138–160; BP diastolic 88–111; PULSE 90–109; RESP 16–22; TEMP 35.9–36.8; O2SAT 91–94
--- NOTE | 2022-04-16 | DI.RAD_ITS ---
Exam(s) XR ABDOMEN FLAT PLATE EXAM: XR ABDOMEN FLAT PLATE CLINICAL HISTORY: assess contrast progress. TECHNIQUE: 2D digital imaging was performed. COMPARISON: CR,XR XR ABDOMEN FLAT PLATE from 04/16/2022 FINDINGS: Some of the intraluminal contrast has now progressed to the level of the rectum. There is still abun dant contrast in the dilated ascending-right side of the colon. IMPRESSION: DATA REPOSITORY: RADIATION DOSE DELIVERED:
--- NOTE | 2022-04-16 | DI.US_ITS ---
APPROVED REPORT EXAM: Comprehensive 2D, Doppler, and color-flow Echocardiogram Patient Location: In-Patient Room/Bed: 206 Radio Dispatcher: Adamaris Baker RDCS (AE) Indications: Aortic Stenosis Other Information Study Quality: Adequate Conclusion Normal left ventricular wall thickness and chamber size. Estimated ejection fraction is 60%. Wall m otion is normal Normal right ventricular size and systolic function Both atria are normal in size Aortic valve is calcified. There is mild aortic stenosis with a peak gradient of 18, mean 10 mmHg. Calculated aortic valve area is 1.46 cm??. There is no aortic regurgitation Normal mitral valve with trace regurgitation Normal tricuspid valve with trace to mild regurgitation. Right ventricular systolic pressure could n ot be estimated Mildly dilated ascending aorta measuring 3.65 cm Wall motion Left Ventricle The left ventricle is normal size. The left ventricular systolic function is normal. The left ventric ular ejection fraction is within the normal range. There is normal left ventricular wall thickness. T here is normal LV segmental wall motion. There is no ventricular septal defect visualized. LVEF is 60 %. Right Ventricle The right ventricle is normal size. The right ventricular systolic function is normal. Atria The left atrium size is normal. The right atrium size is normal. The interatrial septum is intact wit h no evidence for an atrial septal defect. Aortic Valve Aortic valve is calcified. Number of aortic valve leaflets could not be assessed. There is mild aorti c stenosis. Peak gradient is 18, mean is 10 mmHg Calculated aortic valve area is 1.46 cm?? No aortic regurgitation is present. Mitral Valve The mitral valve is normal in structure. No evidence of mitral valve stenosis. Trace mitral regurgita tion. Tricuspid Valve The tricuspid valve is normal in structure. There is no tricuspid valve stenosis. Trace to mild tricu spid regurgitation. Pulmonic Valve The pulmonary valve is normal in structure. There is no pulmonic valvular stenosis. Trace pulmonic re gurgitation. Great Vessels The aortic root is normal in size. The ascending aorta is mildly dilated. Aortic arch is normal in ca liber. IVC is normal in size and collapses >50% with inspiration. Pericardium There is no pericardial effusion. 2D Dimensions IVSD d PLAX 1.11 cm M: 0.6-1.2 LV Vol A2C d MOD 69.4 mL LVPW d PLAX 1.04 cm M: 0.6 - 1.2 LV Vol A4C d MOD 74.1 mL LVID d PLAX 3.80 cm M: 4.2 - 5.8 LA vol/ BSA A2C s A-L 22.1 mL/m2 LVDs 2.85 cm M: 2.5 - 4.0 LA vol/ BSA A4C s A-L 36.9 mL/m2 Ao Root d 3.37 cm M: 3.1 - 3.7 LA Vol/ BSA Biplane s A-L 32.0 mL/m2 RA Area A4C 14.41 cm2 LA Area A4C s MOD 22.19 cm2 RA Vol/ BSA A4C s A-L 17.9 mL/m2 LA Area A2C s MOD 15.32 cm2 Ao Asc Diam d 3.65 cm M: 2.6 - 3.4 LV EF A4C MOD 55.5 % LV EF Teichholz 50.0 % LV EF A2C MOD 55.7 % LVEF (Tovar's) 55.16 % M: 52 - 72 LV EF Biplane MOD 55.2 % LV Volume 55.52 mL M: 62 - 150 SV 39.74 mL LV Volume Index 30.01 mL/m2 M: 34 - 74 SV Index 21.51 mL/m2 LV Vol Biplane MOD 72.0 mL FS 24.90 % LV Diastology MV E' medial 0.093 (>0.07 m/s) MV E Vmax 0.81 (0.4-1.3 m/s) LV E/e MED 8.65 (<14) MV E/E' medial 8.68 Aortic Valve LVOT Area 3.74 cm2 AoV Area Vmax 1.33 cm2 LVOT Vmax 0.80 m/s AoV Area/ BSA (Vmax) 0.72 cm2/m2 LVOT Mean Barry. 0.58 m/s SORAYA Mean Barry. 1.41 cm2 LVOT Peak Grad 2.5 mmHg SORAYA Mean Barry. Index 0.76 cm2/m2 LVOT Mean Grad 1.5 mmHg LVOT VTI 0.151 m LVOT Diam s 2.15 cm AoV Vmax 2.25 m/s Velocity Ratio 0.36 AoV Mean Barry. 1.54 m/s AoV Peak Grad 20.2 mmHg LVOT SV 56.54 mL AoV Mean Grad 11.1 mmHg AoV VTI 0.330 m AoV Area VTI 1.71 cm2 AoV Area/ BSA (VTI) 0.93 cm/m2 Mitral Valve MV DT 202 (160-240 msec) MV PHT 58 msec MV Area PHT 3.76 cm2 MV VTI 0.200 m MV Area VTI 2.83 (4.0-6.0 cm2) Pulmonary Valve PV Vmax 0.95 (0.5-1.5 m/s) RVOT Peak Gr. 1.41 mmHg PV Peak Grad 3.6 mmHg RVOT Mean Gr. 0.70 mmHg PV Mean Grad 1.6 mmHg RVOT VTI 0.115 m PV VTI 0.156 m RVOT Vmax 0.59 m/s
[2022-04-16] MEDS: Enoxaparin 40 MG/0.4 ML SYR SC ×2 (00:05→21:23)
[2022-04-16] MEDS: ACETAMINOPHEN 1,000 MG/100 ML BTL 400 MG IVPB ×4 (00:11→19:18)
[2022-04-16] MEDS: Pantoprazole 40 MG VIAL IVP ×2 (00:11→21:22)
[2022-04-16] MEDS: Lidocaine 5% Patch 1 PATCH TP (00:12)
[2022-04-16] MEDS: Normal Saline Flush 10 ML SYR IVP ×4 (00:12→21:23)
[2022-04-16] MEDS: Normal Saline 500 ML 30 ML IV (00:13)
[2022-04-16] MEDS: MORPHine 2 MG/ML SYR IVP ×3 (00:27→03:27)
[2022-04-16] MEDS: Lactated Ringers 1,000 ML 125 ML IV ×3 (00:44→21:22)
[2022-04-16] MEDS: Dicyclomine 10 MG CAP PO (03:29)
[2022-04-16] MEDS: Lidocaine 2% Jelly 11 ML SYR UR (04:10)
--- NOTE | 2022-04-16 04:15 | DI.RAD_ITS ---
Exam(s) XR PORTABLE CHEST AP POST LINE EXAM: XR PORTABLE CHEST AP POST LINE CLINICAL HISTORY: post ng insertion. TECHNIQUE: 2D digital imaging was performed. COMPARISON: CR CHEST 2 VIEWS PA,LAT from 02/22/2016 CR,XR XR CHEST 2V PA LATERAL from 06/26/2019 FINDINGS: Single AP portable view. There is an NG tube place. Its distal tip is just beyond the GE junction and should be further advan basilia into the stomach Heart size is upper normal. The mediastinum is not widened. Chronic interstitial pattern again noted. Similar appearance to 06/26/2019. No pleural effusions. No pneumothorax. IMPRESSION: Bilateral interstitial disease which may have a chronic component. If clinically indicated further s tudy with CT scan can be performed. NG tube is just beyond the GE junction should be advanced further into the stomach. DATA REPOSITORY: RADIATION DOSE DELIVERED:
[2022-04-16] MEDS: Gastrografin 120 ML BTL PO (05:02)
[2022-04-16 06:18] LABS: Abs Immature Grans 0.71 10^3/uL (0.0-0.06); Basophils % 0.6; HCT 50.4 % (40.0-50.0); HGB 17.2 g/dL (13.5-17.5); MCH 31.2 pg (27.0-33.0); MCHC 34.1 % (32.0-36.0); MCV 92 fL (80-95); MPV 9.5 fL (8.0-11.0); Platelet Count 187 10^3/uL (130-400); RBC 5.51 10^6/uL (4.36-5.78); RDW 13.1 % (11.8-14.1); RDW-SD 44.2 fL; WBC 13.99 10^3/uL (4.4-10.8)
--- NOTE | 2022-04-16 06:18 | DI.VRAD_ITS ---
PROCEDURE INFORMATION: Exam: XR Chest Exam date and time: 04/16/2022 4:21 AM Age: 71 years old Clinical indication: Device placement; Patient HX: Ng tube placement TECHNIQUE: Imaging protocol: Radiologic exam of the chest. Views: 1 view. COMPARISON: CR XR CHEST 2V PA LATERAL 06/26/2019 1:45 PM FINDINGS: Tubes, catheters and devices: Distal tip of a nasogastric tube overlies the stomach, however, proximal side port is above the GE junction. Lungs: Increased interstitial markings at both bases representing chronic interstitial disease. There is no focal airspace consolidation. Pleural spaces: Unremarkable. No pleural effusion. No pneumothorax. Heart/Mediastinum: Unremarkable. No cardiomegaly. Bones/joints: There are multilevel degenerative changes of the thoracic spine. There is no acute osseous pathology. IMPRESSION: No acute cardiopulmonary pathology. Chronic interstitial changes. Support lines as above. Dictated and Authenticated by: Jamie Ly MD. Ordering:FRANCESCA Horvath MD
[2022-04-16 06:29] LABS: Absolute Basophil Count 0.08 10^3/uL (0.0-0.2)
[2022-04-16 06:33] LABS: ALT 59 U/L (16-63); AST 135 U/L (15-37); Albumin 3.4 g/dL (3.4-5.0); Alkaline Phosphatase 196 U/L (46-116); Amylase 96 U/L (25-115); BUN 30 mg/dL (7-18); Bilirubin, Total 0.6 mg/dL (0.2-1.0); CREATININE 1.7 mg/dL (0.70-1.30); Calcium 9.9 mg/dL (8.5-10.1); Chloride 99 mmol/L (98-107); Glucose 111 mg/dL (74-106); Potassium 4.1 mmol/L (3.5-5.1); Sodium 135 mmol/L (136-145); Total Protein 8.4 g/dL (6.4-8.2)
[2022-04-16 06:38] LABS: Absolute Monocyte Count 0.84 10^3/uL (0.1-0.8); Absolute Neutrophil Count 11.05 10^3/uL (1.2-6.7); Atypical Lymphocytes % 2
[2022-04-16 06:39] LABS: Diff Comment Manual Differential; RBC Morphology Normal
[2022-04-16 06:42] LABS: C-Reactive Protein 1.84 mg/dL (0.0-0.3); Lipase 342 U/L (73-393); NT-proBNP 3247 pg/mL (<300)
[2022-04-16 07:03] LABS: Procalcitonin 5.6 ng/mL
--- NOTE | 2022-04-16 07:15 | DI.RAD_ITS ---
Exam(s) XR ABDOMEN FLAT PLATE EXAM: XR ABDOMEN FLAT PLATE CLINICAL HISTORY: colonic obstruction. TECHNIQUE: 2D digital imaging was performed. COMPARISON: CT CT ABDOMEN PELVIS WO from 04/15/2022 FINDINGS: Two views: In G-tube is in the region the fundus of the stomach. Stomach is not distended. Administered contra st seen throughout nondilated small bowel loops and there is contrast also seen in the ascending colo n which appears somewhat distended. There does not appear to be contrast beyond hepatic flexure. Th ere is gaseous distention of the transverse colon and descending colon. Paucity of air in the rectum and lower sigmoid. IMPRESSION: As above. If clinically indicated colonoscopy can be performed. DATA REPOSITORY: RADIATION DOSE DELIVERED:
--- NOTE | 2022-04-16 07:44 | DI.VRAD_ITS ---
PROCEDURE INFORMATION: Exam: XR Abdomen Exam date and time: 04/16/2022 7:12 AM Age: 71 years old Clinical indication: Patient HX: Colonic obstruction. TECHNIQUE: Imaging protocol: Radiologic exam of the abdomen. Views: Frontal supine view of the abdomen. 1 View. COMPARISON: CT ABDOMEN PELVIS WO 04/15/2022 8:24 PM FINDINGS: Tubes, catheters and devices: Distal tip of a nasogastric tube overlies the stomach. Gastrointestinal tract: There is contrast throughout the small bowel, with contrast in a distended ascending colon and hepatic flexure. No contrast seen beyond the proximal transverse colon, with gaseous distention of the transverse colon and descending colon. Bones/joints: Unremarkable. IMPRESSION: Colonic distention, as above. Contrast to the hepatic flexure. Dictated and Authenticated by: Jamie Ly MD. Ordering:FRANCESCA Horvath MD
[2022-04-16] MEDS: Atenolol 50 MG TAB 150 MG PO (08:54)
[2022-04-16] MEDS: Losartan 50 MG TAB 100 MG PO (08:54)
[2022-04-16] MEDS: Patch Removal 1 EACH TP (08:55)
--- NOTE | 2022-04-16 11:50 | PDOC.CMIN ---
- If Service Date Differs Date of service: 04/16/22 Time of Service: 11:50 Care Management Initial Assess REASON FOR HOSPITALIZATION:: partial colonic obstruction/ETOH use PAST MEDICAL HISTORY/PAST SURGICAL HISTORY:: All Active Problems. Colonic mass (Acute). Large bowel obstruction (Acute). Hyponatremia (Acute). Discharge planning issues (Acute). DVT prophylaxis (Acute). CAP (community acquired pneumonia) (Acute). Pulmonary fibrosis (Acute). Sepsis (Acute). Alcohol abuse (Chronic). Hypertension (Chronic). Atrial fibrillation (Chronic). Pneumonia (Acute). HOME (acute kidney injury) (Acute). CHF (congestive heart failure) (Chronic). Medical History. Tobacco abuse, in remission. Surgical History. Hx of appendectomy. S/P surgical manipulation of ankle joint PREVIOUS FUNCTIONAL STATUS/SOCIAL/FAMILY SUPPORTS:: Alfonzo lives alone on [address] in [place]. His apartment is near the [facility] office, which he recieves support from. 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 He has friends and neighbors who check in on him. He has support in the community from [facility]. CURRENT FUNCTIONAL STATUS:: Alfonzo was sitting up in bed when CM met with him. He has an NG tube, which he stated is very uncomfortable. He stated that MD visited him this morning, and the plan is unclear at this time. Per report, MD is planning to maintain the NG tube with a plan to repeat Xray tomorrow. Alfonzo's s/o, Radha visited today while [place]ODROW was meeting with Alfonzo. He also had visits from his brother, Arnulfo, and his daughter, Tina. Levin, [facility], called to check in on him as well. CM will continue to follow. ADVANCE DIRECTIVES:: None on file. Has patient been provided with info about the portal/API?: Yes Did the patient sign up for the portal?: No CODE STATUS:: Full Code INSURANCE COVERAGE / FINANCIAL ISSUES:: [facility]/ [facility] CURRENT HOME/COMMUNITY SERVICES/EQUIPMENT:: Alfonzo doesn't use any equipment at home. He receives support from [facility], and he also transports via [facility]. PRIMARY CARE PHYSICIAN:: Ed Wray POTENTIAL DISCHARGE NEEDS:: Evaluations for further needs, follow up appointments PATIENT/FAMILY EDUCATION NEEDS:: Review discharge instructions regarding activity levels and medications, discussion of self care needs including ask me three ANTICIPATED BARRIERS TO DISCHARGE:: None identified at this time. TRANSPORTATION:: Alfonzo will transport via private vehicle by [facility]. PLAN:: Anticipate Alfonzo will return home when medically cleared with no additional services. He will transport home via private vehicle, [facility]. He will follow up with his new PCP at [facility]. CM will continue to follow.
--- NOTE | 2022-04-16 14:56 | TELEP.MEDR_ITS ---
Date of service: 04/16/22 Time of Service: 14:56 Telepharmacy Home Med Rec Allergies Allergies: Penicillins Allergy (Unknown, Unverified 06/26/19 12:56) Interview Person Interviewed: * Patient Quality Quality of Interview/Accuracy of Medication List: Poor Sources Sources used to compile medication list: [facility] Medication List and SureScripts Changes made to Home Medication List: ADDITIONS: * Atorvastatin 20mg PO daily * Anoro Ellipta (62.5-25) 1 inh daily DELETIONS: * Cefuroxime * Cyclobenzaprine * Pantoprazole * Prednisone CHANGES: * none Additional Notes Additional Notes: * Patient was a poor historian- he could tell me some medications, but not all. * He was unsure if he was still taking the mucinex, folic acid or the thiamine. Recommended Changes Recommended Changes(reason for recommendation): * none Attestation: The home medication list is now updated to the best of my knowledge and is ready to be reconciled by the provider. Please contact the TelePharmacy Medication Reconciliation Pharmacist at for any questions.
--- NOTE | 2022-04-16 14:56 | TELEP.MEDREC ---
Date of service: 04/16/22 [facility] 14[facility] All[facility]ies Allergies: Penicillins Allergy (Unknown, Unverified 06/26/19 12:56) Interview Person Interviewed: Patient Quality Quality of Interview/Accuracy of Medication List: Poor Sources Sources used to compile medication list: Genticel Medication List and SureScripts Changes made to Home Medication List: ADDITIONS: Atorvastatin 20mg PO daily Anoro Ellipta (62.5-25) 1 inh daily DELETIONS: Cefuroxime Cyclobenzaprine Pantoprazole Prednisone CHANGES: none Additional Notes Additional Notes: Patient was a poor historian- he could tell me some medications, but not all. He was unsure if he was still taking the mucinex, folic acid or the thiamine. Recommended Changes Recommended Changes(reason for recommendation): none Attestation: The home medication list is now updated to the best of my knowledge and is ready to be reconciled by the provider. Please contact the [facility] Medication Reconciliation Pharmacist at for any questions.
--- NOTE | 2022-04-16 15:45 | W.PM.PROGNOT ---
Date of Service Date of service: 04/16/22 Time of Service: 15:45 Assessment and Plan Assessment and plan (1) Large bowel obstruction: Status: Acute Assessment and plan: Certainly, today's x-rays are concerning given the lack of contrast in the distal portion of the colon. However, in light of yesterday's CAT scan (suggesting an obstruction at the splenic flexure), difficult to interpret the meaning of the x-rays obtained today. However, most importantly, I think it is reassuring that Alfonzo had a large liquid bowel movement. I think this suggest the possibility of contrast passing into the distal colon and out through the rectum. Furthermore, the change in his abdominal distention since that bowel movement is also quite reassuring. I think at this point, the safest course of action is to maintain the nasogastric tube, and plan to repeat another x-ray tomorrow. Obviously, if he has any changes in his hemodynamics or abdominal symptoms over the night, then we may need to expedite that plan, or perhaps just move forward with exploratory laparoscopy. Subjective Subjective Interval history since last seen: I was able to examine Alfonzo several times throughout the course of today. This morning, he underwent an abdominal x-ray as part of a Gastrografin challenge. At x-ray showed contrast pooling in the cecum up to the hepatic flexure. There was a gas-filled colon along the transverse and descending colons, without any evidence of contrast there. He was quite distended, and said he felt worse compared to yesterday. I repeated another abdominal x-ray around 215 this afternoon. Similar to this morning, it showed contrast in the cecum and ascending colon, but no opacification of the transverse colon. At that point, I went to examine Alfonzo, and he tells me that he had a large liquid bowel movement consistent with diarrhea since that x-ray was taken. He says he feels much better now. Exam GI Other: His abdomen remains a little distended, but less than this morning. He is soft. He is not tender. He is got a reducible nontender umbilical hernia. Objective Last Vital Signs Temp 98.2 F 04/16/22 11:32 Pulse 94 H 04/16/22 11:32 Resp 18 04/16/22 11:32 BP 150/98 H 04/16/22 11:34 Pulse Ox 92 04/16/22 11:32 Laboratory Results - last 24 hr 12/19/22 12/19/22 12/19/22 19:40 19:40 19:50 WBC Cancelled RBC Cancelled Hgb Cancelled Hct Cancelled MCV Cancelled MCH Cancelled MCHC Cancelled RDW Cancelled Plt Count Cancelled MPV Cancelled Immature Gran % Cancelled Neutrophils % Cancelled Band Neutrophils % Cancelled Lymphocytes % Cancelled Atypical Lymphs % Cancelled Monocytes % Cancelled Eosinophils % Cancelled Basophils % Cancelled Metamyelocytes % Cancelled Myelocytes % Cancelled Promyelocytes % Cancelled Other Cells % Cancelled Nucleated RBC % Cancelled Absolute Neutrophils Cancelled Absolute Lymphocytes Cancelled Absolute Monocytes Cancelled Absolute Eosinophils Cancelled Absolute Basophils Cancelled RBC Morphology Cancelled Polychromasia Cancelled Hypochromasia Cancelled Poikilocytosis Cancelled Basophilic Stippling Cancelled Anisocytosis Cancelled Microcytosis Cancelled Macrocytosis Cancelled Spherocytes Cancelled Tear Drop Cells Cancelled Ovalocytes Cancelled Stomatocytes Cancelled [place] Bodies Cancelled [place] Cells/Echinocytes Cancelled Acanthocytes (Spur) Cancelled Schistocytes Cancelled Sodium Cancelled Potassium Cancelled Chloride Cancelled Carbon Dioxide Cancelled Anion Gap Cancelled BUN Cancelled Creatinine Cancelled Est GFR (CKD-EPI 2020) Cancelled Glucose Cancelled Calcium Cancelled Total Bilirubin Cancelled AST Cancelled ALT Cancelled Alkaline Phosphatase Cancelled C-Reactive Protein NT-Pro-B Natriuret Pep Total Protein Cancelled Albumin Cancelled Amylase Lipase Procalcitonin Urine Color Yellow Urine Clarity Sl Cloudy Urine pH 6.0 Ur Specific [place] 1.025 Urine Protein 30 H Urine Ketones Trace H Urine Blood Negative Urine Nitrite Negative Urine Bilirubin Negative Urine Urobilinogen 1.0 H Ur Leukocyte Esterase Negative Urine RBC 0-2 Urine WBC 0-2 Ur Epithelial Cells Few Urine Crystals Negative Urine Bacteria Negative Urine Casts Negative Urine Mucus Trace Ur Culture Indicated? No Urine Glucose Negative Ethyl Alcohol COVID-19 Source SARS-CoV-2 (PCR) 04/15/22 04/15/22 04/15/22 21:50 21:50 21:50 WBC RBC Hgb Hct MCV MCH MCHC RDW Plt Count MPV Immature Gran % Neutrophils % Band Neutrophils % Lymphocytes % Atypical Lymphs % Monocytes % Eosinophils % Basophils % Metamyelocytes % Myelocytes % Promyelocytes % Other Cells % Nucleated RBC % Absolute Neutrophils Absolute Lymphocytes Absolute Monocytes Absolute Eosinophils Absolute Basophils RBC Morphology Polychromasia Hypochromasia Poikilocytosis Basophilic Stippling Anisocytosis Microcytosis Macrocytosis Spherocytes Tear Drop Cells Ovalocytes Stomatocytes [place] Bodies [place] Cells/Echinocytes Acanthocytes (Spur) Schistocytes Sodium Cancelled Potassium Cancelled Chloride Cancelled Carbon Dioxide Cancelled Anion Gap Cancelled BUN Cancelled Creatinine Cancelled Est GFR (CKD-EPI 2020) Cancelled Glucose Cancelled Calcium Cancelled Total Bilirubin AST ALT Alkaline Phosphatase C-Reactive Protein NT-Pro-B Natriuret Pep Total Protein Albumin Amylase Lipase Procalcitonin Urine Color Urine Clarity Urine pH Ur Specific [place] Urine Protein Urine Ketones Urine Blood Urine Nitrite Urine Bilirubin Urine Urobilinogen Ur Leukocyte Esterase Urine RBC Urine WBC Ur Epithelial Cells Urine Crystals Urine Bacteria Urine Casts Urine Mucus Ur Culture Indicated? Urine Glucose Ethyl Alcohol COVID-19 Source Nasal/Nares Cancelled SARS-CoV-2 (PCR) Negative Cancelled 04/15/22 04/15/22 04/15/22 22:35 22:35 22:35 WBC 12.60 H RBC 5.21 Hgb 16.1 Hct 48.5 MCV 93 MCH 30.9 MCHC 33.2 RDW 12.9 Plt Count 172 MPV 9.0 Immature Gran % 0.0 Neutrophils % 81.0 Band Neutrophils % Lymphocytes % 10.0 Atypical Lymphs % Monocytes % 4.0 Eosinophils % 2.0 Basophils % 0.0 Metamyelocytes % 3 Myelocytes % Promyelocytes % Other Cells % Nucleated RBC % 0.5 H Absolute Neutrophils 10.21 H Absolute Lymphocytes 1.26 Absolute Monocytes 0.50 Absolute Eosinophils 0.25 Absolute Basophils 0.00 RBC Morphology Normal Polychromasia Hypochromasia Poikilocytosis Basophilic Stippling Anisocytosis Microcytosis Macrocytosis Spherocytes Tear Drop Cells Ovalocytes Stomatocytes [place] Bodies [place] Cells/Echinocytes Acanthocytes (Spur) Schistocytes Sodium 132 L Potassium 4.5 Chloride 96 L Carbon Dioxide 27.8 Anion Gap 8.2 BUN 29 H Creatinine 2.0 H Est GFR (CKD-EPI 2020) 34.81 Glucose 116 H Calcium 9.4 Total Bilirubin 0.6 AST 91 H ALT 63 Alkaline Phosphatase 185 H C-Reactive Protein NT-Pro-B Natriuret Pep Total Protein 7.8 Albumin 3.3 L Amylase Lipase Procalcitonin Urine Color Urine Clarity Urine pH Ur Specific [place] Urine Protein Urine Ketones Urine Blood Urine Nitrite Urine Bilirubin Urine Urobilinogen Ur Leukocyte Esterase Urine RBC Urine WBC Ur Epithelial Cells Urine Crystals Urine Bacteria Urine Casts Urine Mucus Ur Culture Indicated? Urine Glucose Ethyl Alcohol < 3.0 COVID-19 Source SARS-CoV-2 (PCR) 04/16/22 04/16/22 04/16/22 05:45 05:45 05:45 WBC 13.99 H RBC 5.51 Hgb 17.2 Hct 50.4 H MCV 92 MCH 31.2 MCHC 34.1 RDW 13.1 Plt Count 187 MPV 9.5 Immature Gran % See Differential Neutrophils % 79.0 Band Neutrophils % Lymphocytes % 13.0 Atypical Lymphs % 2 Monocytes % 6.0 Eosinophils % 0.0 Basophils % 0.6 Metamyelocytes % Myelocytes % Promyelocytes % Other Cells % Nucleated RBC % 0.0 Absolute Neutrophils 11.05 H Absolute Lymphocytes 2.10 Absolute Monocytes 0.84 H Absolute Eosinophils 0.00 Absolute Basophils 0.08 RBC Morphology Normal Polychromasia Hypochromasia Poikilocytosis Basophilic Stippling Anisocytosis Microcytosis Macrocytosis Spherocytes Tear Drop Cells Ovalocytes Stomatocytes [place] Bodies [place] Cells/Echinocytes Acanthocytes (Spur) Schistocytes Sodium 135 L Potassium 4.1 Chloride 99 Carbon Dioxide 24.0 Anion Gap 12.0 H BUN 30 H Creatinine 1.7 H Est GFR (CKD-EPI 2020) 42.30 Glucose 111 H Calcium 9.9 Total Bilirubin 0.6 AST 135 H ALT 59 Alkaline Phosphatase 196 H C-Reactive Protein 1.84 H NT-Pro-B Natriuret Pep 3247 H Total Protein 8.4 H Albumin 3.4 Amylase 96 Lipase 342 Procalcitonin Urine Color Urine Clarity Urine pH Ur Specific [place] Urine Protein Urine Ketones Urine Blood Urine Nitrite Urine Bilirubin Urine Urobilinogen Ur Leukocyte Esterase Urine RBC Urine WBC Ur Epithelial Cells Urine Crystals Urine Bacteria Urine Casts Urine Mucus Ur Culture Indicated? Urine Glucose Ethyl Alcohol COVID-19 Source SARS-CoV-2 (PCR) 04/16/22 05:45 WBC RBC Hgb Hct MCV MCH MCHC RDW Plt Count MPV Immature Gran % Neutrophils % Band Neutrophils % Lymphocytes % Atypical Lymphs % Monocytes % Eosinophils % Basophils % Metamyelocytes % Myelocytes % Promyelocytes % Other Cells % Nucleated RBC % Absolute Neutrophils Absolute Lymphocytes Absolute Monocytes Absolute Eosinophils Absolute Basophils RBC Morphology Polychromasia Hypochromasia Poikilocytosis Basophilic Stippling Anisocytosis Microcytosis Macrocytosis Spherocytes Tear Drop Cells Ovalocytes Stomatocytes [place] Bodies [place] Cells/Echinocytes Acanthocytes (Spur) Schistocytes Sodium Potassium Chloride Carbon Dioxide Anion Gap BUN Creatinine Est GFR (CKD-EPI 2020) Glucose Calcium Total Bilirubin AST ALT Alkaline Phosphatase C-Reactive Protein NT-Pro-B Natriuret Pep Total Protein Albumin Amylase Lipase Procalcitonin 5.6 Urine Color Urine Clarity Urine pH Ur Specific [place] Urine Protein Urine Ketones Urine Blood Urine Nitrite Urine Bilirubin Urine Urobilinogen Ur Leukocyte Esterase Urine RBC Urine WBC Ur Epithelial Cells Urine Crystals Urine Bacteria Urine Casts Urine Mucus Ur Culture Indicated? Urine Glucose Ethyl Alcohol COVID-19 Source SARS-CoV-2 (PCR) PAWSS Have you Been Recently Intoxicated or Drunk Within the Last 30 days?: No Have you Ever Experienced Previous Episodes of Alcohol Withdrawal?: Yes Have you ever Experienced Withdrawal Seizures?: No Have you ever Experienced Delirium Tremens(DT)s?: No Have you ever undergone Alcohol Rehabilitation Treatment (i.e, inpt ot outpatient treatment programs)?: No Have you ever Experienced Blackouts?: Yes Have you ever Combined Alcohol with other Downers within the last 90 days?: No Have you ever Combined Alcohol with any other Substance of Abuse during the last 90 days?: No Positive Blood Alcohol level on Presentation? [PCS.BAL]: Yes Evidence of Increased Autonomic Activity (i.e. HR>120, tremor, sweating, agitation, nausea)?: No Result: 3
[2022-04-16 18:35] LABS: CEA 71.7 ng/mL (See Note)
[2022-04-17] VITALS (14 sets, daily range): BP systolic 145–168; BP diastolic 88–113; PULSE 89–113; RESP 16–20; TEMP 36–37; O2SAT 93–98
--- NOTE | 2022-04-17 | DI.RAD_ITS ---
Exam(s) XR ABDOMEN FLAT PLATE EXAM: XR ABDOMEN FLAT PLATE CLINICAL HISTORY: bowel obstruction. TECHNIQUE: 2D digital imaging was performed. COMPARISON: CT CT ABDOMEN PELVIS WO from 04/15/2022 CR XR ABDOMEN FLAT PLATE from 04/16/2022 FINDINGS: 3 views NG tube distal aspect is in the proximal stomach just beyond the GE junction. Stomach is not distend ed. The contrast is again noted to in the proximal half of the colon as well as in the lower sigmoid and rectum. Somewhat similar to yesterday. Small bowel loops are not distended. Cannot assess for free air as this is a supine study. Incidentally noted is relatively symmetrical interstitial disease in both lung bases. This correspon ds to findings chronic interstitial disease seen in the lung bases on the recent CT of the abdomen pe rformed 04/15/2022. IMPRESSION: As above. DATA REPOSITORY: RADIATION DOSE DELIVERED:
[2022-04-17] MEDS: ACETAMINOPHEN 1,000 MG/100 ML BTL 400 MG IVPB ×4 (00:43→22:13)
[2022-04-17 07:35] LABS: HCT 46.9 % (40.0-50.0); HGB 15.2 g/dL (13.5-17.5); MCH 30.6 pg (27.0-33.0); MCHC 32.4 % (32.0-36.0); MCV 95 fL (80-95); MPV 9.5 fL (8.0-11.0); Platelet Count 131 10^3/uL (130-400); RBC 4.96 10^6/uL (4.36-5.78); RDW 13.2 % (11.8-14.1); RDW-SD 45.9 fL; WBC 10.78 10^3/uL (4.4-10.8)
[2022-04-17 07:57] LABS: Anion Gap 6.8 mmol/L (3-11); BUN 28 mg/dL (7-18); CO2 28.2 mmol/L (21.0-32.0); CREATININE 1.5 mg/dL (0.70-1.30); Calcium 9.2 mg/dL (8.5-10.1); Chloride 104 mmol/L (98-107); Estimated GFR 49.16 (mL/min/1.73m2); Glucose 107 mg/dL (74-106); Potassium 4.1 mmol/L (3.5-5.1); Sodium 139 mmol/L (136-145)
[2022-04-17] MEDS: Lactated Ringers 1,000 ML 125 ML IV ×2 (08:01→17:16)
[2022-04-17] MEDS: Losartan 50 MG TAB 100 MG PO (08:02)
[2022-04-17] MEDS: Atenolol 50 MG TAB 150 MG PO (08:02)
--- NOTE | 2022-04-17 09:15 | PDOC.CMPRO ---
- If Service Date Differs Date of service: 04/17/22 Time of Service: 09:15 Care Management Progress Note S/O: Alfonzo was resting when CM attempted to meet with him. He continues to be managed non surgically, with an NG tube placed. Per report, he will have a colonoscopy tomorrow, which will determine his plan of care going forward. CM will continue to follow. A: Alfonzo is a 71 year old male admitted to [facility] on 04/15/22 with a partial colonic obstruction/ETOH use. P: Anticipate Alfonzo will return home when medically cleared with no additional services. He will transport home via private vehicle, RCT. He will follow up with his PCP at [facility] Medicine, surgical services, and his discharge plan of care. CM will continue to follow.
--- NOTE | 2022-04-17 15:48 | PGE_ITS ---
Date of Service Date of service: 04/17/22 Time of Service: 15:48 Assessment and Plan Assessment and plan (1) Colonic mass: Status: Acute Assessment and plan: X-ray from this morning proves that he is not completely obstructed. In fact, he has a fair amount of contrast into the rectum, based on the frequency of his bowel movements I suspect a significant amount of stool is passing through. He does still have some retained contrast in the cecum and ascending colon well, raising the question of whether or not there is a partial obstruction or the area of the hepatic flexure. It is very interesting since the CAT scan suggest obstruction at the splenic flexure. In that regards, I think the safest thing to do is move forward with colonoscopy to evaluate the lumen of the large intestine, and provide tissue diagnosis if necessary. We talked about doing this as an outpatient, but I am not sure he fully comprehends the importance of the timing, as well as the complexity of the bowel prep and the day before. Since he already has a nasogastric tube in place, I think the most reasonable option at this point is to perform the bowel prep today, the plan for colonosco py tomorrow. Will start some GoLytely by way of the nasogastric tube today, completed in the morning. Once we have the results of the colonoscopy, we can make a decision whether or not he needs to remain in the hospital, where we could pursue the rest of the work-up outpatient. Subjective Subjective Interval history since last seen: Alfonzo continues to have loose bowel movements overnight, and he says he feels better today. He denies any nausea. He is a little bit hungry. He denies any pain. Exam GI Inspection: normal to inspection and non-distended Palpation: soft and no hernias Percussion: normal to percussion Auscultation: normal bowel sounds Other: He is certainly far less distended than yesterday morning. He is not tender at all. Objective Last Vital Signs Temp 98.2 F 04/17/22 13:56 Pulse 91 H 04/17/22 15:30 Resp 18 04/17/22 13:56 BP 145/90 H 04/17/22 13:56 Pulse Ox 98 04/17/22 13:56 Laboratory Results - last 24 hr 04/16/22 04/17/22 04/17/22 05:45 07:00 07:00 WBC 10.78 RBC 4.96 Hgb 15.2 D Hct 46.9 MCV 95 MCH 30.6 MCHC 32.4 RDW 13.2 Plt Count 131 MPV 9.5 Sodium 139 Potassium 4.1 Chloride 104 Carbon Dioxide 28.2 Anion Gap 6.8 BUN 28 H Creatinine 1.5 H Est GFR (CKD-EPI 2020) 49.16 Glucose 107 H Calcium 9.2 Carcinoembryonic Ag 71.7 PAWSS Have you Been Recently Intoxicated or Drunk Within the Last 30 days?: No Have you Ever Experienced Previous Episodes of Alcohol Withdrawal?: Yes Have you ever Experienced Withdrawal Seizures?: No Have you ever Experienced Delirium Tremens(DT)s?: No Have you ever undergone Alcohol Rehabilitation Treatment (i.e, inpt ot outpatient treatment programs)?: No Have you ever Experienced Blackouts?: Yes Have you ever Combined Alcohol with other Downers within the last 90 days?: No Have you ever Combined Alcohol with any other Substance of Abuse during the last 90 days?: No Positive Blood Alcohol level on Presentation? [PCS.BAL]: Yes Evidence of Increased Autonomic Activity (i.e. HR>120, tremor, sweating, agitation, nausea)?: No Result: 3
[2022-04-17] MEDS: Pantoprazole 40 MG VIAL IVP (22:15)
[2022-04-17] MEDS: Enoxaparin 40 MG/0.4 ML SYR SC (22:16)
[2022-04-18] VITALS (12 sets, daily range): BP systolic 148–181; BP diastolic 91–126; PULSE 99–115; RESP 16–22; TEMP 36–36.7; O2SAT 91–97; BMI 21.5
[2022-04-18] MEDS: Lactated Ringers 1,000 ML 125 ML IV (01:11)
[2022-04-18] MEDS: ACETAMINOPHEN 1,000 MG/100 ML BTL 400 MG IVPB (06:29)
[2022-04-18 07:40] LABS: Anion Gap 10.7 mmol/L (3-11); BUN 22 mg/dL (7-18); CO2 28.3 mmol/L (21.0-32.0); CREATININE 1.2 mg/dL (0.70-1.30); Calcium 9.4 mg/dL (8.5-10.1); Chloride 102 mmol/L (98-107); Estimated GFR 64.25 (mL/min/1.73m2); Glucose 106 mg/dL (74-106); Magnesium 1.7 mg/dL (1.8-2.4); Potassium 3.3 mmol/L (3.5-5.1); Sodium 141 mmol/L (136-145)
[2022-04-18] MEDS: Losartan 50 MG TAB 100 MG PO (09:03)
[2022-04-18] MEDS: Atenolol 50 MG TAB 150 MG PO (09:03)
--- NOTE | 2022-04-18 09:13 | PDOC.CMPRO ---
- If Service Date Differs Date of service: 04/18/22 Time of Service: 09:13 Care Management Progress Note S/O: A: Alfonzo is a 71 year old male admitted to [facility] on 04/15/22 with a partial colonic obstruction/ETOH use. P: Anticipate Alfonzo will return home when medically cleared with no additional services. He will transport home via private vehicle, RCT. He will follow up with his PCP at [facility] Medicine, surgical services, and his discharge plan of care. CM will continue to follow.
[2022-04-18] MEDS: POTASSIUM CHLORIDE 20 MEQ/100 ML BAG 50 MEQ IVPB (09:34)
[2022-04-18] MEDS: MAGNESIUM SULFATE 4 GM/100 ML BAG IVPB (09:34)
--- NOTE | 2022-04-18 10:34 | W.PM.PROGNOT ---
Date of Service Date of service: 04/18/22 Time of Service: 10:34 Assessment and Plan Assessment and plan (1) Colonic mass: Status: Acute Assessment and plan: Clinically, this seems most consistent with a partial bowel obstruction, with imaging suggestive of the large intestine as the source. Furthermore, the elevated CEA level raises the concern that this is a colon cancer. We will proceed with diagnostic colonoscopy today. He has some hypokalemia and hypomagnesemia that I repleted this morning. Subjective Subjective Interval history since last seen: The CEA level came back yesterday greater than 70, and Alfonzo continued to have mostly liquid bowel movements through the afternoon. Unfortunately, he dislodged the nasogastric tube overnight, but he was able to begin the bowel prep by way of mouth. This morning, he says he is a little bit of abdominal discomfort, but overall feels much better than when he was admitted. Exam GI Other: Abdomen soft, nontender, nondistended. Objective Last Vital Signs Temp 96.8 F L 04/18/22 07:35 Pulse 115 H 04/18/22 07:35 Resp 18 04/18/22 07:35 BP 176/104 H 04/18/22 07:35 Pulse Ox 97 04/18/22 07:35 Laboratory Results - last 24 hr 04/18/22 07:10 Sodium 141 Potassium 3.3 L Chloride 102 Carbon Dioxide 28.3 Anion Gap 10.7 BUN 22 H Creatinine 1.2 Est GFR (CKD-EPI 2020) 64.25 Glucose 106 Calcium 9.4 Magnesium 1.7 L PAWSS Have you Been Recently Intoxicated or Drunk Within the Last 30 days?: No Have you Ever Experienced Previous Episodes of Alcohol Withdrawal?: Yes Have you ever Experienced Withdrawal Seizures?: No Have you ever Experienced Delirium Tremens(DT)s?: No Have you ever undergone Alcohol Rehabilitation Treatment (i.e, inpt ot outpatient treatment programs)?: No Have you ever Experienced Blackouts?: Yes Have you ever Combined Alcohol with other Downers within the last 90 days?: No Have you ever Combined Alcohol with any other Substance of Abuse during the last 90 days?: No Positive Blood Alcohol level on Presentation? [PCS.BAL]: Yes Evidence of Increased Autonomic Activity (i.e. HR>120, tremor, sweating, agitation, nausea)?: No Result: 3
--- NOTE | 2022-04-18 12:19 | ANES.PREOP_ITS ---
General Info Date of Service Date Performed: 04/18/22 Height: 5 ft 10 in Weight: 68.039 kg Body Mass Index (BMI): 21.5 Surgical Procedure: Operation Date: 04/18/22 13:20 Proposed Procedure Side Surgeon edin Ruiz MD Meds Allergies and Home Medications Allergies Allergy/AdvReac Type Severity Reaction Status Date / Time Penicillins Allergy Unknown Unverified 06/26/19 12:56 Home Medication Medication Instructions Recorded albuterol sulfate 90 mcg/actuation 2 puff inhalation Q6H PRN 06/14/19 aerosol inhaler aspirin 81 mg chewable tablet 81 mg PO DAILY 06/14/19 atenolol 100 mg tablet 150 mg PO DAILY 06/14/19 losartan 100 mg tablet 100 mg PO DAILY 06/14/19 folic acid 1 mg tablet 1 mg PO DAILY #30 tabs 06/16/19 guaifenesin 600 mg tablet, 600 mg PO BID PRN PRN cough #10 06/16/19 extended release 12 hr (Mucinex) tabs ipratropium 0.5 mg-albuterol 3 mg 3 ml UPD Q4H PRN PRN shortness of 06/16/19 (2.5 mg base)/3 mL nebulization breath or wheezing #90 mL soln multivitamin (Multiple Vitamins 1 tab PO DAILY #30 tabs 06/16/19 tablet) thiamine mononitrate (vit B1) 100 100 mg PO DAILY #30 tabs 06/16/19 mg tablet (Vitamin B-1 (mononitrate)) atorvastatin 20 mg tablet 20 mg PO DAILY 04/16/22 umeclidinium 62.5 mcg-vilanterol 1 inh inhalation DAILY 04/16/22 25 mcg/actuation powdr for inhalation (Anoro Ellipta) Current Visit Medications: Current Medications Generic Name Dose Route Start Last Admin Trade Name Freq PRN Reason Stop Dose Admin Albuterol Sulfate 2 puff 04/15/22 23:00 Albuterol Hfa 8 Gm 60 Puff Inh IH Q6H PRN PRN Albuterol/Ipratropium 3 ml 04/15/22 21:57 Albuterol/Ipratropium 3 Ml Upd Vial UPD Q4H PRN PRN shortness of breath or wheezing Atenolol 150 mg 04/16/22 08:30 04/18/22 09:03 Atenolol 50 Mg Tab PO 150 mg DAILY EDWARD Administration Device 1 each 04/15/22 22:00 Inhaler, Assist Device MC DIRECTED EDWARD Dicyclomine HCl 10 mg 04/15/22 23:00 04/16/22 03:29 Dicyclomine 10 Mg Cap PO 10 mg QID PRN PRN Administration colon spasm Enoxaparin Sodium 40 mg 04/15/22 22:00 04/17/22 22:16 Enoxaparin 40 Mg/0.4 Ml Syr SC 40 mg Q24H EDWARD Administration Sodium Chloride 500 mls @ 0 mls/hr 04/15/22 21:42 04/16/22 13:14 Saline 500ml Bag IV 0 mls/hr PRN PRN Infusion As Directed Ringer's Solution 1,000 mls @ 125 mls/hr 04/15/22 21:45 04/18/22 01:11 IV 125 mls/hr INFUSION EDWARD Administration Acetaminophen 1,000 mg in 100 mls @ 400 mls/hr 04/17/22 14:00 04/18/22 06:29 Ofirmev IVPB 400 mls/hr Q8H EDWARD Administration Magnesium Sulfate 4 gm in 100 mls @ 25 mls/hr 04/18/22 08:51 04/18/22 09:34 IVPB 04/18/22 12:50 25 mls/hr NOW ONE Administration IV Miscellaneous Supplies 1 each 04/15/22 21:45 Iv Access IV DIRECTED EDWARD Lidocaine 1 patch 04/15/22 23:15 04/17/22 22:16 Lidocaine 5% Patch TP Not Given HS EDWARD Lorazepam 1 mg 04/16/22 13:27 Lorazepam 2 Mg/Ml Vial IVP Q4H PRN PRN Losartan Potassium 100 mg 04/16/22 08:30 04/18/22 09:03 Losartan 50 Mg Tab PO 100 mg DAILY EDWARD Administration Miscellaneous 1 each 04/16/22 08:30 04/18/22 09:05 Patch Removal TP Not Given DAILY EDAWRD Morphine Sulfate 2 mg 04/15/22 21:42 04/16/22 03:27 Morphine 2 Mg/Ml Syr IVP 2 mg Q1H PRN PRN Administration Ondansetron HCl 4 mg 04/15/22 21:42 Ondansetron 4 Mg/2 Ml Vial IVP Q4H PRN PRN Pantoprazole Sodium 40 mg 04/15/22 21:45 04/17/22 22:15 Pantoprazole 40 Mg Vial IVP 40 mg Q24H EDWARD Administration Simethicone 80 mg 04/15/22 23:00 Simethicone 80 Mg Chew PO Q6H PRN PRN Sodium Chloride 0 ml 04/15/22 21:42 04/16/22 21:23 Normal Saline Flush 10 Ml Syr IVP 20 ml PRN PRN Administration PFSH Active Problems Active Problems: Problem Status Onset Code Aortic atherosclerosis I70.0 ANGUIANO (nonalcoholic steatohepatitis) K75.81 Colonic mass K63.89 Large bowel obstruction K56.609 Hyponatremia E87.1 Discharge planning issues Z02.9 DVT prophylaxis Z29.9 CAP (community acquired pneumonia) J18.9 Pulmonary fibrosis J84.10 Sepsis A41.9 Hypomagnesemia E83.42 Alcohol abuse F10.10 Hypertension I10 Atrial fibrillation I48.91 Pneumonia J18.9 HOME (acute kidney injury) N17.9 CHF (congestive heart failure) I50.9 Medical History Medical History Tobacco abuse, in remission Surgical History Surgical History Hx of appendectomy S/P surgical manipulation of ankle joint Tobacco Smoking/Tobacco Use Status: Former Tobacco Use Alcohol Alcohol Intake: current Alcohol intake frequency: 3 or more drinks per day Alcohol type: beer Substance Use Substance use type: marijuana Vital Signs and Lab Results Vital Signs Most Recent Vital Signs in EMR: Most Recent Vital Signs Temp Pulse Resp BP Pulse Ox 36.5 C 100 H 18 158/91 H 91 L 04/18/22 11:53 04/18/22 11:53 04/18/22 11:53 04/18/22 11:53 04/18/22 11:53 Lab Results Result Diagrams: 04/17/22 07:00 04/18/22 07:10 Blood Type / Crossmatch: No Data to Display Complete Blood Count: White Blood Count 10.78 10^3/uL (4.4-10.8) 04/17/22 07:00 Red Blood Count 4.96 10^6/uL (4.36-5.78) 04/17/22 07:00 Hemoglobin 15.2 g/dL (13.5-17.5) 04/17/22 07:00 Hematocrit 46.9 % (40.0-50.0) 04/17/22 07:00 Platelet Count 131 10^3/uL (130-400) 04/17/22 07:00 Complete Metabolic Panel: Sodium 141 mmol/L (136-145) 04/18/22 07:10 Potassium 3.3 mmol/L (3.5-5.1) L 04/18/22 07:10 Chloride 102 mmol/L (98-107) 04/18/22 07:10 Carbon Dioxide 28.3 mmol/L (21.0-32.0) 04/18/22 07:10 BUN 22 mg/dL (7-18) H 04/18/22 07:10 Creatinine 1.2 mg/dL (0.70-1.30) 04/18/22 07:10 Est GFR (CKD-EPI 2020) 64.25 (mL/min/1.73m2) 04/18/22 07:10 Magnesium 1.7 mg/dL (1.8-2.4) L 04/18/22 07:10 Calcium 9.4 mg/dL (8.5-10.1) 04/18/22 07:10 Albumin 3.4 g/dL (3.4-5.0) 04/16/22 05:45 Glucose 106 mg/dL (74-106) 04/18/22 07:10 C-Reactive Protein 1.84 mg/dL (0.0-0.3) H 04/16/22 05:45 Liver Function Panel: Alanine Aminotransferase (ALT/SGPT) 59 U/L (16-63) 04/16/22 05: 45 Aspartate Amino Transf (AST/SGOT) 135 U/L (15-37) H 04/16/22 05 :45 Coagulation Panel: No Data to Display Cardiac Panel: NT-Pro-B Natriuret Pep 3247 pg/mL (<300) H 04/16/22 Arterial Blood Gas: No Data to Display Venous Blood Gas: No Data to Display Pancreas Panel: Amylase Level 96 U/L (25-115) 04/16/22 05:45 Lipase 342 U/L (73-393) 04/16/22 05:45 Thyroid Panel: No Data to Display Infectious Disease: 2 Coronavirus (COVID-19)(PCR) Negative (Negative) 04/15/22 21:50 Coronavirus 2019 Source Nasal/Nares 04/15/22 21:50 Blood Cultures: 2 No Data to Display Toxicology Panel: Ethyl Alcohol Level < 3.0 mg/dL (<10) 04/15/22 22:35 Imaging and Studies Imaging and Studies Study information below may be from another EMR and interpreted by another provider. Please see original notes in EMR for more complete details. EKG Summary: PATIENT NAME: Alfonzo Cooper #: [id number] ORDERING PROVIDER: Benitez Vance #: [id number] PRIMARY CARE PROVIDER:ED DALTON DATE/TIME OF SERVICE: 04/15/222153 : 1950PERFORMING LOCATION: CT APPROVED REPORT Exam: Resting ECG Reason for Exam: surgery Patient Location: HR:92 bpm ECG Measurements Heart Rate 92 AXIS LA [id number] P [id number] QRSd 76 QRS 51 QT 387 T14 QTc 479 Conclusion Atrial fibrillation...V-rate 64-124, irreg A-activity Borderline ST depression, diffuse leads...ST <-0.07mV, ant/lat/inf Physician: no stemi, minimal lateral st depression Echocardiogram Summary: Patient Name: Alfonzo Cooper #: [id number]: CT Ordering Provider: Saritha Jean-Baptiste NPAccount #: [id number]: ADM IN Primary Care Provider: Ed DaltonDate of Exam: 04/16/22Sex: M Admission Date: 04/15/22 : 1950 Age: 71 APPROVED REPORT EXAM: Comprehensive 2D, Doppler, and color-flow Echocardiogram Patient Location: In-Patient Room/Bed: [facility] [place] Worker: Adamaris Baker RDCS (AE) Indications: Aortic Stenosis Other Information Study Quality: Adequate Conclusion Normal left ventricular wall thickness and chamber size. Estimated ejection fraction is 60%. Wall motion is normal Normal right ventricular size and systolic function Both atria are normal in size Aortic valve is calcified. There is mild aortic stenosis with a peak gradient of 18, mean 10 mmHg. Calculated aortic valve area is 1.46 cm??. There is no aortic regurgitation Normal mitral valve with trace regurgitation Normal tricuspid valve with trace to mild regurgitation. Right ventricular systolic pressure could not be estimated Mildly dilated ascending aorta measuring 3.65 cm Anesthesia Assessment and Plan Anesthesia History Personal History: No History of Anesthesia Complications Family History: No Family History of Anesthesia Complications Exercise Tolerance Exercise Tolerance: Metabolic Equivalents>4 Pertinent Negatives Pertinent Negatives: No Symptoms of GERD, No Major Cardiovascular Symptoms or Complaints and No History of CVA/TIA Cardiac & Pulmonary Exam Cardiac Exam: Heart Murmur Present Pulmonary Exam: Clear Bilateral Breath Sounds and Rhonchi Present Implantable Cardiac Device Does patient have a Pacemaker or an ICD?: No Airway Exam Known Difficult Airway: No Mallampati Class: 3 Mouth Opening: Normal (> 3cm) Thyromental Distance: Greater than 3 cm Neck Range of Motion: Full ROM Neck Circumference: Normal Teeth Condition: Edentulous ASA Classification ASA Score: ASA 3 Emergency Case?: No NPO Status NPO Status: NPO Clears >2 hours, Solids >8 hours Anesthesia Plan Resuscitation Status: Full Code Anesthesia Technique: General Anesthesia Airway Planned: Natural Airway Monitors Used: Standard Monitors
[2022-04-18] MEDS: Lactated Ringers 1,000 ML 30 ML IV (12:53)
--- NOTE | 2022-04-18 13:13 | BOWEL_PTH ---
PATIENT: Alfonzo Cooper LOC: [place] Mohamud#:[id number] AGE/SX: 71/M ROOM: 206 RE04/15/[address]: Yuliet Franco : 1950 BED: A DIS: 04/18/2022 SPEC #: [id number] RECD: 04/18/22 17:32 STATUS: JERMEÍAS REQ #: [id number] DEVIKA: 04/18/22 13:[address]: Yuliet Franco DEPT: Surgical Specimen RECD BY: Carol Duggan ENTERED: 04/18/22 17:34 SP TYPE: Bowel OTHR DR: Ed Wray Tissues: 1 - BIOPSY BOWEL 2 - BIOPSY BOWEL 3 - BIOPSY BOWEL Procedures: GROSS AND MICRO LEVEL 4 Comments: [id number]
[2022-04-18] MEDS: Endoscopic Tattoo 5 ML SYR IJ (13:19)
--- NOTE | 2022-04-18 13:38 | W.COLOREPORT ---
Date of service: 04/18/22 Time of Service: 13:38 Colonoscopy Report Date of procedure: 04/18/22 Pre-op diagnosis general: Partial large bowel obstruction Post-op diagnosis procedure note: same Procedure: Diagnostic colonoscopy with polypectomy Surgeon: Marcial Ruiz Anesthesia Type: General:No Airway Estimated blood loss (mL): 20 Pathology: other (35 cm, 20 centers, 10 cm) Complications: None Disposition: PACU Indications: Alfonzo is a 71-year-old male who came to the hospital with a chief complaint of abdominal pain. He underwent a CAT scan of the abdomen and pelvis that suggested a partial large bowel obstruction. Originally, there was thought to be a transition point around the splenic flexure. Subsequently, he was admitted to the hospital, and a Gastrografin challenge was initiated. This showed contrast within the cecum, but slow transit across the hepatic flexure. Additionally, a CEA was sent, and came back greater than 70 raising the concern for colon cancer. Prep: Hollie Procedure Start Time: 13:02 Procedure End Time: 13:31 Retraction Time: 21 Findings: 1.75 cm pedunculated mass at 35 cm tattooed, polyp at 20 cm, rectal polyp at 10 cm Procedure Description: After the induction of monitored anesthetic care, and with the patient in left lateral decubitus position, I began by performing an external anorectal exam.? Perineum and skin were normal, as was the anal verge.? There was no evidence of external hemorrhoids.? Next, I performed a digital rectal exam.? I did appreciate any abnormal findings.? Next, I advanced a colonoscope into the rectal vault.? I performed retroflexion.? This was normal.? Using insufflation, I then advanced the colonoscope beyond the rectal folds and into the sigmoid colon before advancing towards the cecum.? The quality of the prep was excellent.? There was rare sigmoid diverticulosis. I was able to traverse the splenic flexure without any difficulty. There was mild redundancy in the area of the hepatic flexure, but there was no evidence of any obstructive lesions. The scope was noted to be in the cecum by identification of the ileocecal valve and appendiceal orifice.? I then began withdrawing the colonoscope using repeated irrigation as necessary for full evaluation of the colonic mucosa. Around 35 cm from the anal verge I identified a 1.75 cm polyp. ?It appeared pedunculated in character. There was no ulceration, but it appeared a bit lobular. I did perform a tattoo of this area?I was able to remove this with a cold snare. ?I examined the site, and there was minimal bleeding. ?Once this was completed, I continued to withdraw the scope and examine the remainder of the colonic mucosa. Around 20 cm from the anal verge I identified a 0.5 cm polyp. ?It appeared sessile in character. ?I was able to remove this with a cold forcep polypectomy. ?I examined the site, and there was minimal bleeding. ?Once this was completed, I continued to withdraw the scope and examine the remainder of the colonic mucosa. Once the scope was withdrawn to the level of the rectum, great care was taken to examine portions of the rectal folds.?Around 10 cm from the anal verge I identified a 1 cm pedunculated polyp. ?I was able to remove this with a cold snare. ?I examined the site, and there was minimal bleeding. ?Once this was completed, I continued to withdraw the scope and examine the remainder of the colonic mucosa. Finally, the scope was withdrawn and the patient was brought to the same-day surgery recovery unit as the anesthetic wore off. ?The findings and instructions were shared with the patient prior to discharge.
--- NOTE | 2022-04-18 13:44 | W.PM.DS.N ---
Date of service: 04/18/22 Time of Service: 13:44 DS: Diagnosis Discharge Diagnosis (1) Colonic mass: Status: Acute Asessment and Plan: On admission, you had evidence of a partial large bowel obstruction. You were treated with nasogastric decompression, and a Gastrografin challenge. Fortunately, the Gastrografin passed into the rectum, and your bowel function returned. He did have a blood test sent which raises the concern for colon cancer. Additionally, he underwent colonoscopy that showed 3 polyps within the large intestine. Specimens were obtained. We will contact you with results of the pathology reports. Discharge Plan Disposition Patient Disposition: Home Condition: Improving Discharge Details Reason For Visit: partial colonic obstruction/ETOH abuse Admit Date/Time: 04/15/22 21:42 Admit Provider: Yuliet Franco Attending Provider: Yuliet Franco Primary Care Provider: Ed Wray Hospital Course Hospital Course: Alfonzo is a 71-year-old male that was admitted to the hospital with concern for partial bowel obstruction. Originally, the CAT scan suggested pathology in the area of the splenic flexure, he underwent subsequent imaging that raise a concern about hepatic flexure blockage. Regardless, he was able to pass contrast through the rectum, and his symptoms resolved. He did have an elevated CEA level, and therefore he underwent colonoscopy to rule out colon cancer. 3 polyps were detected on that test. He tolerated the procedure well. He will be discharged home, will follow-up in the office on the pathology results Home Meds and New Rx's Prescriptions: Continued atorvastatin 20 mg tablet 20 mg PO DAILY Label Comments: TAKE ONE TABLET BY MOUTH EVERY DAY Anoro Ellipta 62.5-25 mcg/actuation blister with device 1 inh INHALATION DAILY Label Comments: INHALE ONE PUFF BY MOUTH EVERY DAY aspirin 81 mg Tablet,Chewable 81 mg PO DAILY atenolol 100 mg Tablet 150 mg PO DAILY albuterol sulfate 90 mcg/actuation Hfa Aerosol Inhaler 2 puff INHALATION Q6H PRN losartan 100 mg Tablet 100 mg PO DAILY ipratropium-albuterol 0.5 mg-3 mg(2.5 mg base)/3 mL Solution For Nebulization 3 ml UPD Q4H PRN PRN (Reason: shortness of breath or wheezing) Qty: 90 0RF folic acid 1 mg Tablet 1 mg PO DAILY Qty: 30 0RF Rx Instructions: Patient unsure if he is taking guaifenesin [Mucinex] 600 mg Tablet Extended Release 12hr 600 mg PO BID PRN PRN (Reason: cough) Qty: 10 0RF Rx Instructions: Patient unsure if he is taking multivitamin [Multiple Vitamins] Tablet 1 tab PO DAILY Qty: 30 0RF thiamine mononitrate (vit B1) [Vitamin B-1 (mononitrate)] 100 mg Tablet 100 mg PO DAILY Qty: 30 0RF Rx Instructions: Patient unsure if he is taking Discharge Instructions Instructions: High Fiber Diet (DC), Colorectal Polyps (DC) Additional Instructions: 1. If tolerated, consume a soft, low fiber diet for 1-2 days. [address] not drive, drink alcohol, operate machinery, make critical decisions, or do activities that require coordination or balance for 24 hours. 3. Because air was put into your colon during the procedure, expelling air from your rectum (passing gas or farting) is normal. 4. You may not have a bowel movement for 1-3 days because of the colonoscopy prep. This is normal. 5. Go directly to the emergency room if you notice any of the following: Develop chills (warm to touch), or if you have a thermometer and your temperature is above 101 Difficulty breathing or difficultly swallowing Persistent vomiting Severe abdominal pain, other than gas cramps Severe chest pain Black, tarry stools Any bleeding ? exceeding one tablespoon 6. Call your physician if the site where your intravenous was started becomes red, swollen, painful, and warm to touch. 7. Your physician has reviewed your pre-procedure medications. Please continue to take those medications as previously ordered. You will be given specific information/education regarding any changes to your medications before leaving. Referrals: Marcial Ruiz MD [ [facility] STAFF PHYSICIAN] - (April the at 2 PM) Activity:: Activity as Tolerated Equipment/Supplies:: No Equipment Needed Diet:: High-fiber Discharge Orders Discharge Orders: Discharge Order (Routine); Ordered 04/18/22 Ordered By: Marcial Ruiz DS: Summary Time Spent with Patient providing and/or coordinating discharge services: Greater than 30 minutes Status at Discharge Functional status at discharge: independent ambulation Overall status at discharge: patient is back to baseline Mental Status: mental status grossly normal Speech and Movement: speech and movement normal Mood: congruent mood Affect: normal affect Exam Const General: cooperative, healthy appearing and comfortable Orientation: awake and oriented x3 Eyes General: appearance normal, both eyes and all related structures Conjunctivae: conjunctivae normal Sclera: sclerae normal Resp Effort & Inspection: normal respiratory effort and able to speak in complete sentences Cardio Jugular venous pressure: no JVD Rate: regular rate GI Inspection: non-distended Palpation: soft, no guarding, no hernias and nontender Auscultation: normal bowel sounds Skin General skin exam: normal turgor Neuro General: patient alert, patient awake and patient oriented x3 Cognition: normal cognition Extrem Right lower extremity: no edema Left lower extremity: no edema Psych Mental Status: mental status grossly normal Speech and Movement: speech and movement normal Mood: congruent mood Affect: normal affect DS: Data Vitals/I&O Vitals and I&O: Vital Signs Temperature 97.7 F 04/18/22 11:53 Temperature Source Tympanic 04/18/22 11:53 Pulse 100 H 04/18/22 11:53 Pulse Rhythm Irregular 04/18/22 03:12 Respiratory Rate 18 04/18/22 11:53 Respiratory Effort 04/18/22 03:12 Respiratory Depth Normal 04/18/22 03:12 Respiratory Pattern Normal 04/18/22 03:12 Blood Pressure 158/91 H 04/18/22 11:53 Blood Pressure Position Sitting 04/15/22 19:32 Pulse Oximetry 91 L 04/18/22 11:53 Oxygen Delivery Method Room Air 04/18/22 11:53 Oxygen Flow Rate 0 04/18/22 11:53 Pain Level 0 04/18/22 11:53 Comment 04/18/22 11:53 Intake & Output 04/17/22 04/18/22 04/18/22 23:59 11:59 23:59 Intake Total 1200 / 2400 1089.583 / 1589.583 500 / 1589.583 Output Total 650 / 2100 700 / 700 Balance 550 / 300 389.583 / 889.583 500 / 889.583 Weight 150 lb Intake: IV 1200 / 2400 1089.583 / 1589.583 500 / 1589.583 Output: Gastric Drainage 50 / 250 Right Nare 50 / 250 Urine 700 / 700 Stool 600 / 950 Other: Urine Color Yellow Urine Appearance Clear Clear Comment unmeasured/ miss of commode Stool Characteristics Liquid Liquid Brown Voiding Methods Bedside Commode Data Completed and Pending Labs on day of discharge: Labs from last 24 hours 04/18/22 07:10 Sodium 141 Potassium 3.3 L Chloride 102 Carbon Dioxide 28.3 Anion Gap 10.7 BUN 22 H Creatinine 1.2 Est GFR (CKD-EPI 2020) 64.25 Glucose 106 Calcium 9.4 Magnesium 1.7 L PFSH All Active Problems Aortic atherosclerosis (Acute) ANGUIANO (nonalcoholic steatohepatitis) (Acute) Colonic mass (Acute) Large bowel obstruction (Acute) Hyponatremia (Acute) Discharge planning issues (Acute) DVT prophylaxis (Acute) CAP (community acquired pneumonia) (Acute) Pulmonary fibrosis (Acute) Sepsis (Acute) Alcohol abuse (Chronic) Hypertension (Chronic) Atrial fibrillation (Chronic) Pneumonia (Acute) HOME (acute kidney injury) (Acute) CHF (congestive heart failure) (Chronic) Medical History Tobacco abuse, in remission Surgical History Hx of appendectomy S/P surgical manipulation of ankle joint Family History Paternal Grandmother Diabetes Uncle Cancer patient does not know what type Social History Smoking/Tobacco Use Status: Former Tobacco Use Quit Date: 04/28/16 Pack-years: 150 Tobacco: How many years used: 50 Smoking risk assessment performed?: Yes Alcohol Intake: current Alcohol Intake frequency: 3 or more drinks per day Alcohol type: beer Substance use type: marijuana Do you feel safe at home: Yes Do you feel safe in your relationship?: Yes
--- NOTE | 2022-04-18 14:20 | W.ANESPOSTOP ---
Postoperative Evaluation Date, Time and Location Date Performed: 04/18/22 Time Performed: 14:20 Patient Location: PACU Vital Signs Most Recent Imported Vital Signs: Most Recent Vital Signs Temp Pulse Resp BP Pulse Ox 36.7 C 109 H 18 176/109 H 94 04/18/22 13:50 04/18/22 14:00 04/18/22 14:00 04/18/22 14:00 04/18/22 14:00 Pain Score Most Recent Pain Score: Most Recent Pain Score Pain Level [Midline] 9 04/15/22 19:39 Pain Level 0 04/18/22 14:00 Assessment Mental Status: Awake (Alert & Oriented to Patient Baseline) Airway and Respiratory Function: Patent airway with normal (patient baseline) respiratory exam Cardiovascular Function: Hemodynamically Stable Hydration Status: Adequately Hydrated Nausea & Vomiting: No Nausea or Vomiting Pain: Pt. Denies Any Pain Peripheral Nerve Block: Patient did not receive a nerve block
--- NOTE | 2022-04-18 14:22 | NUR.NOTE ---
Nursing Note: Pt back from colonoscopy. small amount of blood on chux pad from rectum when getting off of stretcher. VSS, HTN. Pt tolerating clears. going to eat toast.
--- NOTE | 2022-04-18 15:40 | PDOC.CMDIS ---
- If Service Date Differs Date of service: 04/18/22 Time of Service: 15:40 LACE Index Scoring Tool - Questions: Length of Stay (in days): 3 Acuity (Admit via E.D.?): Yes Comorbidities: Congestive Heart Failure, Chronic Pulmonary Disease E.D. Visits: 1 - Answers: Total Score: 12 Risk of Readmission: High Risk Care Management Discharge Reason for Hospitalization: partial colonic obstruction/ETOH use Discharge Plan: Alfonzo will return home today with no new services. His friend will drive him home via private vehicle. He will follow up with his PCP and discharge plan of care. Patient/Family Education Needs: Review discharge instructions and limitations, discussion of self care needs including ask me three.
== END 2022-04-18 16:19 | disposition home or self-care (01) | DRG 389 ==
LOC: ER 22:07 → MS 22:52
PROVIDERS: Surgery; Admitting Provider Surgery; Emergency Provider Student in an Organized Health Care Education/Training Program; PCP Physician Assistant; Visit Provider Surgery
PROC: 0DJD8ZZ Inspection of Lower Intestinal Tract, Via Natural or Artificial Opening Endoscopic (ICD-10-PCS; CPT 45378; principal; 2022-04-18 13:15)
DX: K56.690 Other partial intestinal obstruction (principal); E87.1 Hypo-osmolality and hyponatremia; N17.9 Acute kidney failure, unspecified; K63.89 Other specified diseases of intestine; F10.10 Alcohol abuse, uncomplicated; J44.9 Chronic obstructive pulmonary disease, unspecified; I48.91 Unspecified atrial fibrillation; I11.0 Hypertensive heart disease with heart failure; I50.9 Heart failure, unspecified; J84.10 Pulmonary fibrosis, unspecified; Z87.891 Personal history of nicotine dependence; K75.81 Nonalcoholic steatohepatitis (NASH); I70.0 Atherosclerosis of aorta; E87.6 Hypokalemia; E83.42 Hypomagnesemia; K62.1 Rectal polyp
CPT/HCPCS: 45385; 45381; 36415; 71045; 80048; 80053; 83690; 84145; 85027; 87635; 88305; 93005; 93306; 99222; 99231; 99239; 99285; J1650; 74018; 74176; 80320; 81003; 81015; 82150; 82378; 83735; 83880; 85025; 86140; 93010; J0131; J2270; J3475; J3480; J3490

== ENCOUNTER 2022-04-18 20:22 | Emergency (ER) | payer MEDICARE, MEDICAID, SELFPAY ==
[2022-04-18] VITALS (33 sets, daily range): BP systolic 130–166; BP diastolic 84–106; PULSE 82–117; RESP 11–32; TEMP 37; O2SAT 87–98
--- NOTE | 2022-04-18 20:15 | RT.EKG_ITS ---
APPROVED REPORT Exam: Resting ECG Reason for Exam: short of breath Patient Location: E HR:107 bpm ECG Measurements Heart Rate 107 AXIS MD [id number] P [id number] QRSd 83 QRS 51 QT 335 T -84 QTc 448 Conclusion Atrial fibrillation. Repol abnrm ST-T neg, ant/lat/inf previously noted 04/15/22
[2022-04-18 20:53] LABS: HCT 44.6 % (40.0-50.0); HGB 14.8 g/dL (13.5-17.5); MCH 30.7 pg (27.0-33.0); MCHC 33.2 % (32.0-36.0); MCV 93 fL (80-95); MPV 9.9 fL (8.0-11.0); Platelet Count 122 10^3/uL (130-400); RBC 4.82 10^6/uL (4.36-5.78); RDW-SD 44.1 fL; WBC 11.33 10^3/uL (4.4-10.8)
[2022-04-18 21:03] LABS: INR 1.4 (0.9-1.1); PTT Activated 26.4 sec (21.0-27.5); Prothrombin Time 13.6 sec (9.3-11.0)
[2022-04-18 21:06] LABS: ALT 76 U/L (16-63); AST 189 U/L (15-37); Albumin 3.2 g/dL (3.4-5.0); Alkaline Phosphatase 397 U/L (46-116); Anion Gap 8.6 mmol/L (3-11); BUN 19 mg/dL (7-18); CO2 28.4 mmol/L (21.0-32.0); CREATININE 1.2 mg/dL (0.70-1.30); Chloride 101 mmol/L (98-107); Estimated GFR 64.25 (mL/min/1.73m2); Glucose 147 mg/dL (74-106); Magnesium 2.4 mg/dL (1.8-2.4); Sodium 138 mmol/L (136-145); Total Protein 7.5 g/dL (6.4-8.2)
[2022-04-18 21:08] LABS: Potassium 2.7 mmol/L (3.5-5.1)
[2022-04-18] MEDS: HYDROmorphone 2 MG/ML SYR 0.5 MG IVP (21:08)
[2022-04-18 21:23] LABS: Absolute Monocyte Count 0.45 10^3/uL (0.1-0.8); Absolute Neutrophil Count 9.06 10^3/uL (1.2-6.7); Atypical Lymphocytes % 2; Bands % 1
[2022-04-18 21:24] LABS: Diff Comment Manual Differential; Metamyelocytes % 1; RBC Morphology Normal
--- NOTE | 2022-04-18 21:34 | ED.GENADUL_ITS ---
Discharge Plan Disposition Patient Disposition: Home Condition: Improving Discharge Details Clinical Impression: Acute hypokalemia, Colonoscopy causing post-procedural bleeding Primary Care Provider: Ed Wray ED Provider: Santi Macdonald Home Meds and New Rx's Prescriptions: Continued atorvastatin 20 mg tablet 20 mg PO DAILY Label Comments: TAKE ONE TABLET BY MOUTH EVERY DAY Anoro Ellipta 62.5-25 mcg/actuation blister with device 1 inh INHALATION DAILY Label Comments: INHALE ONE PUFF BY MOUTH EVERY DAY aspirin 81 mg Tablet,Chewable 81 mg PO DAILY atenolol 100 mg Tablet 150 mg PO DAILY albuterol sulfate 90 mcg/actuation Hfa Aerosol Inhaler 2 puff INHALATION Q6H PRN losartan 100 mg Tablet 100 mg PO DAILY ipratropium-albuterol 0.5 mg-3 mg(2.5 mg base)/3 mL Solution For Nebulization 3 ml UPD Q4H PRN PRN (Reason: shortness of breath or wheezing) Qty: 90 0RF folic acid 1 mg Tablet 1 mg PO DAILY Qty: 30 0RF Rx Instructions: Patient unsure if he is taking guaifenesin [Mucinex] 600 mg Tablet Extended Release 12hr 600 mg PO BID PRN PRN (Reason: cough) Qty: 10 0RF Rx Instructions: Patient unsure if he is taking multivitamin [Multiple Vitamins] Tablet 1 tab PO DAILY Qty: 30 0RF thiamine mononitrate (vit B1) [Vitamin B-1 (mononitrate)] 100 mg Tablet 100 mg PO DAILY Qty: 30 0RF Rx Instructions: Patient unsure if he is taking Discharge Instructions Instructions: Hypokalemia (ED) Additional Instructions: May increase potassium containing foods in the diet such as almonds, cashews, bananas, strawberries. Return if you have recurrent rectal bleeding, develop a fever, or any other acute concerns. Discharge Data Discharge Date/Time-TO BE ENTERED AT DEPARTURE: 04/19/22 02:49 Medical Decision Making <Irving Chaudhary NP - Last Filed: 04/22/22 11:02> Patient presenting to the emergency department via EMS for chief complaint of rectal bleeding. Patient had a colonoscopy today with polyp removal and was discharged home. Patient states bright red blood per rectum and significant abdominal and back pain. Patient denies a fever chills, nausea vomiting, chest pain or difficulty breathing. Physical exam shows uncomfortable appearing male patient but no respiratory distress, soft nontender abdomen, normal active bowel sounds rectal exam did show Hemoccult positive sample but no rectal hemorrhage was noted. We will plan on checking labs pending patient's pain pending results. Please see physician interpretation for full interpretation of EKG but I agree with EKG report of atrial fibrillation with rate of 107. Patient does have slight ST depression but this is unchanged from previous EKG. We will continue to monitor. Patient had slight increase of WBC but H&H is stable, CMP does show potassium of 2.7, slight elevated BUN at 19, GFR 64 patient does have elevation of AST ALT and alk phos with low albumin. Which is elevated from what appeared to be 2 days ago but will continue to monitor. INR is 1.4. We will start IV potassium 40 mill equivalents and will also give 40 mill equivalents p.o. potassium. We will also run slight amount of fluids with potassium for hydration and comfort purposes. Patient does state improvement of pain and discomfort after 0.5 of hydromorphone. Did call and review results and examination findings with on-call surgeon Dr. Ruiz. He states that patient did have pretty significant distal polyps 1 being only 10 cm from rectum. With this discussion he agreed that at this time no need to perform any advanced imaging but did state that if patient had any further rectal bleeding patient should be Obs in the emergency department overnight or he should be paged for any emergent bleeding. Otherwise if patient vital signs stabilized and patient remains in good condition with resolution of symptoms that could consider discharging patient home. <Santi Macdonald MD - Last Filed: 04/19/22 01:56> Lab Data Lab results reviewed: Yes I reviewed the patient's lab results. Labs: Received patient in signout from Mr. Chaudhary. Please see his note regarding details of the initial presentation, exam and plan of care. Patient was observed and potassium repleted. Repeat potassium HPI <Irving Chaudhary NP - Last Filed: 04/22/22 11:02> General Mode of arrival: EMS . Date/Time Provider Initiated Documentation: 04/18/22 20:22 . Limitations to Documentation: no limitations . Information obtained by: patient and RN notes reviewed . History of Present Illness 71 year old M presents to the emergency department with the chief complaint of Rectal bleeding, described as severe, with intensity rated at 10. and is localized to the back and abdomen. Patient started experiencing this hour(s) (1) and it has been constant. No relieving factors improve symptom(s), Patient did receive the following treatments prior to arrival, none Related Data Home Medications Medication Instructions Recorded Confirmed albuterol sulfate 90 mcg/actuation 2 puff inhalation Q6H PRN 06/14/19 04/18/22 aerosol inhaler aspirin 81 mg chewable tablet 81 mg PO DAILY 06/14/19 04/18/22 atenolol 100 mg tablet 150 mg PO DAILY 06/14/19 04/18/22 losartan 100 mg tablet 100 mg PO DAILY 06/14/19 04/18/22 folic acid 1 mg tablet 1 mg PO DAILY #30 tabs 06/16/19 04/18/22 guaifenesin 600 mg tablet, 600 mg PO BID PRN PRN cough #10 06/16/19 04/18/22 extended release 12 hr (Mucinex) tabs ipratropium 0.5 mg-albuterol 3 mg 3 ml UPD Q4H PRN PRN shortness of 06/16/19 04/18/22 (2.5 mg base)/3 mL nebulization breath or wheezing #90 mL soln multivitamin (Multiple Vitamins 1 tab PO DAILY #30 tabs 06/16/19 04/18/22 tablet) thiamine mononitrate (vit B1) 100 100 mg PO DAILY #30 tabs 06/16/19 04/18/22 mg tablet (Vitamin B-1 (mononitrate)) atorvastatin 20 mg tablet 20 mg PO DAILY 04/16/22 04/18/22 umeclidinium 62.5 mcg-vilanterol 1 inh inhalation DAILY 04/16/22 04/18/22 25 mcg/actuation powdr for inhalation (Anoro Ellipta) Previous Rx's Medication Instructions Recorded folic acid 1 mg tablet 1 mg PO DAILY #30 tabs 06/16/19 guaifenesin 600 mg tablet, 600 mg PO BID PRN PRN cough #10 06/16/19 extended release 12 hr (Mucinex) tabs ipratropium 0.5 mg-albuterol 3 mg 3 ml UPD Q4H PRN PRN shortness of 06/16/19 (2.5 mg base)/3 mL nebulization breath or wheezing #90 mL soln multivitamin (Multiple Vitamins 1 tab PO DAILY #30 tabs 06/16/19 tablet) thiamine mononitrate (vit B1) 100 100 mg PO DAILY #30 tabs 06/16/19 mg tablet (Vitamin B-1 (mononitrate)) Allergies Allergy/AdvReac Type Severity Reaction Status Date / Time Penicillins Allergy Unknown Unverified 04/18/22 20:37 General Stated Complaint: GI Bleed ANETA: 2 Review of Systems <Irving Chaudhary NP - Last Filed: 04/22/22 11:02> Constitutional Constitutional: Denies chills, Denies fever(s) and Reports poor appetite Cardiovascular Cardiovascular: Denies chest pain and Denies dyspnea Respiratory Respiratory: Denies cough and Denies dyspnea Gastrointestinal Gastrointestinal: Reports as per HPI, Reports abdominal pain, Denies melena, Reports hematochezia, Denies change in bowel habits, Denies constipation, Denies diarrhea, Denies nausea and Denies vomiting Genitourinary Genitourinary: Denies hematuria, Denies difficulty urinating, Denies urinary hesitancy, Denies urinary incontinence and Denies urinary urgency Musculoskeletal Musculoskeletal: Reports back pain Integumentary/Breasts Skin/Breast: Denies rash PFSH <Irving Chaudhary NP - Last Filed: 04/22/22 11:02> All Active Problems (Updated 04/19/22 @ 01:46 by Santi Macdonald MD) Acute hypokalemia (Acute) Colonoscopy causing post-procedural bleeding (Acute) Aortic atherosclerosis (Acute) ANGUIANO (nonalcoholic steatohepatitis) (Acute) Colonic mass (Acute) Hyponatremia (Acute) Discharge planning issues (Acute) DVT prophylaxis (Acute) CAP (community acquired pneumonia) (Acute) Pulmonary fibrosis (Acute) Sepsis (Acute) Alcohol abuse (Chronic) Hypertension (Chronic) Atrial fibrillation (Chronic) Pneumonia (Acute) CHF (congestive heart failure) (Chronic) Medical History Tobacco abuse, in remission Surgical History Hx of appendectomy S/P surgical manipulation of ankle joint Family History Paternal Grandmother Diabetes Uncle Cancer patient does not know what type Social History Smoking/Tobacco Use Status: Former Tobacco Use Quit Date: 04/28/16 Pack-years: 150 Tobacco: How many years used: 50 Smoking risk assessment performed?: Yes Alcohol Intake: current Alcohol Intake frequency: 3 or more drinks per day Alcohol type: beer Substance use type: marijuana Do you feel safe at home: Yes Do you feel safe in your relationship?: Yes Exam <Irving Chaudhary NP - Last Filed: 04/22/22 11:02> Const General: cooperative Orientation: alert and awake Resp Effort & Inspection: normal respiratory effort and able to speak in complete sentences Auscultation: clear to auscultation bilaterally Cardio Rate: regular rate Rhythm: regular rhythm Heart Sounds: S1 normal and S2 normal GI Palpation: soft, not firm, no guarding, no masses, no pulsatile masses, not rigid and tender Auscultation: normal bowel sounds Rectal Exam: visual inspection normal, heme positive stool and No tenderness Neuro General: patient alert, patient awake, patient oriented x3, gait normal and moves all extremities Course <Irving Chaudhary NP - Last Filed: 04/22/22 11:02> Vital Signs Vital signs: Vital Signs Temperature 37.0 C 04/18/22 20:32 Pulse 104 H 04/18/22 20:32 Respiratory Rate 18 04/18/22 20:32 Blood Pressure 154/94 H 04/18/22 20:32 Pulse Oximetry 92 04/18/22 20:32 Temperature 37.0 C 04/18/22 20:32 Temperature Source Temporal Artery Scan 04/18/22 20:32 Pulse 104 H 04/18/22 20:32 Respiratory Rate 18 04/18/22 20:32 Respiratory Effort 04/18/22 20:32 Blood Pressure 154/94 H 04/18/22 20:32 Blood Pressure Position Supine 04/18/22 20:32 Pulse Oximetry 98 04/18/22 21:12 Oxygen Delivery Method Nasal Cannula 04/18/22 21:12 Oxygen Flow Rate 2 04/18/22 21:12 Pain Level 9 04/18/22 20:32 Lab/Test Results Lab/Test Results: Laboratory Tests Range/Units 04/18/22 04/18/22 04/18/22 20:40 20:40 20:40 WBC (4.4-10.8) 10^3/uL 11.33 H RBC (4.36-5.78) 10^6/uL 4.82 Hgb (13.5-17.5) g/dL 14.8 Hct (40.0-50.0) % 44.6 MCV (80-95) fL 93 MCH (27.0-33.0) pg 30.7 MCHC (32.0-36.0) % 33.2 RDW (11.8-14.1) % 13.0 Plt Count (130-400) 10^3/uL 122 L MPV (8.0-11.0) fL 9.9 Immature Gran % 0.0 Neutrophils % 79.0 Band Neutrophils % 1 Lymphocytes % 13.0 Atypical Lymphs % 2 Monocytes % 4.0 Eosinophils % 0.0 Basophils % 0.0 Metamyelocytes % 1 Nucleated RBC % (0.0-0.3) % 2.0 H Absolute Neutrophils (1.2-6.7) 10^3/uL 9.06 H Absolute Lymphocytes (1.2-3.4) 10^3/uL 1.70 Absolute Monocytes (0.1-0.8) 10^3/uL 0.45 Absolute Eosinophils (0.0-0.7) 10^3/uL 0.00 Absolute Basophils (0.0-0.2) 10^3/uL 0.00 RBC Morphology Normal PT (9.3-11.0) sec 13.6 H INR (0.9-1.1) 1.4 H APTT (21.0-27.5) sec 26.4 Sodium (136-145) mmol/L 138 Potassium (3.5-5.1) mmol/L 2.7 L* Chloride (98-107) mmol/L 101 Carbon Dioxide (21.0-32.0) mmol/L 28.4 Anion Gap (3-11) mmol/L 8.6 BUN (7-18) mg/dL 19 H Creatinine (0.70-1.30) mg/dL 1.2 Est GFR (CKD-EPI 2020) (mL/min/1.73m2) 64.25 Glucose (74-106) mg/dL 147 H Calcium (8.5-10.1) mg/dL 9.0 Magnesium (1.8-2.4) mg/dL 2.4 Total Bilirubin (0.2-1.0) mg/dL 1.0 AST (15-37) U/L 189 H ALT (16-63) U/L 76 H Alkaline Phosphatase (46-116) U/L 397 H Total Protein (6.4-8.2) g/dL 7.5 Albumin (3.4-5.0) g/dL 3.2 L Sign Out <Irving Chaudhary NP - Last Filed: 04/22/22 11:02> Sign Out Data: Sign Out Comment: Patient receiving IV potassium and recommended further monitoring for any further GI bleeding. Patient will need disposition and reassessment after completion of potassium repletion. Last updated by Irving Chaudhary NP at 04/18/22 23:03
[2022-04-18] MEDS: POTASSIUM CHLORIDE 20 MEQ/100 ML BAG 50 MEQ IVPB ×2 (21:39→23:41)
[2022-04-18] MEDS: Normal Saline 1,000 ML 100 ML IV (22:17)
[2022-04-18] MEDS: Potassium Chloride 20 MEQ TABCR 40 MEQ PO (23:23)
[2022-04-19] VITALS (19 sets, daily range): BP systolic 128–160; BP diastolic 86–109; PULSE 89–115; RESP 11–20; O2SAT 90–96
[2022-04-19 01:45] LABS: Potassium 4.2 mmol/L (3.5-5.1)
== END 2022-04-19 02:49 | disposition home or self-care (01) ==
PROVIDERS: Nurse Practitioner Family; Emergency Provider Emergency Medicine; PCP Physician Assistant
DX: K91.840 Postprocedural hemorrhage of a digestive system organ or structure following a digestive system procedure (principal); E87.6 Hypokalemia; I48.91 Unspecified atrial fibrillation; D72.829 Elevated white blood cell count, unspecified; R74.8 Abnormal levels of other serum enzymes; R74.01 Elevation of levels of liver transaminase levels; Z79.82 Long term (current) use of aspirin
CPT/HCPCS: 36415; 80053; 86850; 86900; 86901; 93005; 96361; 96365; 96366; 96375; 96376; 99284; 83735; 84132; 85025; 85610; 85730; 93010; J1170; J3480

== ENCOUNTER 2022-04-25 14:05 | Inpatient (IN) | payer MEDICARE, MEDICAID, SELFPAY ==
[2022-04-25] VITALS (21 sets, daily range): BP systolic 82–109; BP diastolic 55–88; PULSE 82–142; RESP 17–32; TEMP 36.9; O2SAT 91–96
--- NOTE | 2022-04-25 14:15 | RT.EKG_ITS ---
APPROVED REPORT Exam: Resting ECG Reason for Exam: sob Patient Location: E HR:135 bpm ECG Measurements Heart Rate 135 AXIS TX [id number] P [id number] QRSd 76 QRS 69 QT 332 T 253 QTc 499 Conclusion Atrial fibrillation. Repol abnrm ST-T neg, ant/lat/inf
--- NOTE | 2022-04-25 15:13 | W.ED.GENAD ---
Discharge Plan Disposition Patient Disposition: Admit to [facility] Condition: Poor Discharge Details Clinical Impression: Atrial fibrillation with rapid ventricular response, Acute CHF, Elevated liver function tests, Acute dyspnea Admit Date/Time: 04/25/22 22:02 Admit Provider: Ghislaine Rodriguez Attending Provider: Ghislaine Rodriguez Primary Care Provider: Ed Wray ED Provider: Irving Chaudhary Discharge Data Discharge Date/Time-TO BE ENTERED AT DEPARTURE: 04/26/22 00:43 Discharge Physician: Tessie Watson Medical Decision Making <Philomena Márquez NP - Last Filed: 04/26/22 23:06> 71-year-old male presents to the ER with a chief complaint of shortness of breath which has been ongoing since having a colonoscopy on 19 April. He states that he has been diagnosed possibly with rectal or abdominal cancer, he states that he is having orthopnea and waking at night with shortness of breath. He does have a history of COPD he reports that the his nebulizers are not working, other history includes?, aortic arthrosclerosis, hyponatremia, pulmonary fibrosis, hypertension atrial fibrillation and CHF. Work-up ordered including serial troponins, D-dimer, 125 Solu-Medrol, DuoNeb Patient moved to monitored room, Patient is in A. fib with RVR at a rate of 129, O2 sat is 92%, Hemoglobin 12.7 hematocrit 38.5 BUN 50 creatinine 2.1 GFR 32 which is up from 64 on his last visit, glucose 110 bilirubin is 2.8, AST 591 ALT 293 alk phos 8882 initial troponin is less than 50, albumin is 2.6, D-dimer is greater than 7000. CT chest rule out PE canceled due to GFR. Care is to be handed off to oncoming provider Syed Chaudhary pending possible transfer for bed capacity and further eval versus admission. Patient was given 10 mg of diltiazem bolus. At this time blood pressure is 90/70, heart rate 143 O2 sat 96% on room air. Medical Records Medical records reviewed: Yes I reviewed the patient's medical records. Lab Data Lab results reviewed: Yes I reviewed the patient's lab results. Labs: Laboratory Tests Range/Units 04/25/22 04/25/22 04/25/22 15:07 15:07 15:07 WBC (4.4-10.8) 10^3/uL 5.71 RBC (4.36-5.78) 10^6/uL 4.13 L Hgb (13.5-17.5) g/dL 12.7 L Hct (40.0-50.0) % 38.5 L MCV (80-95) fL 93 MCH (27.0-33.0) pg 30.8 MCHC (32.0-36.0) % 33.0 RDW (11.8-14.1) % 14.1 Plt Count (130-400) 10^3/uL 154 MPV (8.0-11.0) fL 9.5 Immature Gran % 0.0 Neutrophils % 58.0 Band Neutrophils % 5 Lymphocytes % 20.0 Atypical Lymphs % 13 Monocytes % 4.0 Eosinophils % 0.0 Basophils % 0.0 Nucleated RBC % (0.0-0.3) % 4.0 H Absolute Neutrophils (1.2-6.7) 10^3/uL 3.60 Absolute Lymphocytes (1.2-3.4) 10^3/uL 1.88 Absolute Monocytes (0.1-0.8) 10^3/uL 0.23 Absolute Eosinophils (0.0-0.7) 10^3/uL 0.00 Absolute Basophils (0.0-0.2) 10^3/uL 0.00 RBC Morphology Normal D-Dimer (<500) ng/mlFEU > 7500 H Sodium (136-145) mmol/L 138 Potassium (3.5-5.1) mmol/L 4.6 Chloride (98-107) mmol/L 102 Carbon Dioxide (21.0-32.0) mmol/L 26.8 Anion Gap (3-11) mmol/L 9.2 BUN (7-18) mg/dL 50 H Creatinine (0.70-1.30) mg/dL 2.1 H Est GFR (CKD-EPI 2020) (mL/min/1.73m2) 32.83 Glucose (74-106) mg/dL 110 H Calcium (8.5-10.1) mg/dL 9.3 Magnesium (1.8-2.4) mg/dL 2.3 Total Bilirubin (0.2-1.0) mg/dL 2.8 H AST (15-37) U/L 591 H ALT (16-63) U/L 293 H Alkaline Phosphatase (46-116) U/L 882 H Troponin I (<or=60) ng/L 56 Total Protein (6.4-8.2) g/dL 6.9 Albumin (3.4-5.0) g/dL 2.6 L <Irving Chaudhary NP - Last Filed: 04/28/22 09:11> 71-year-old male presents to the ER with a chief complaint of shortness of breath which has been ongoing since having a colonoscopy on 19 April. He states that he has been diagnosed possibly with rectal or abdominal cancer, he states that he is having orthopnea and waking at night with shortness of breath. He does have a history of COPD he reports that the his nebulizers are not working, other history includes?, aortic arthrosclerosis, hyponatremia, pulmonary fibrosis, hypertension atrial fibrillation and CHF. Work-up ordered including serial troponins, D-dimer, 125 Solu-Medrol, DuoNeb Patient moved to monitored room, Patient is in A. fib with RVR at a rate of 129, O2 sat is 92%, Hemoglobin 12.7 hematocrit 38.5 BUN 50 creatinine 2.1 GFR 32 which is up from 64 on his last visit, glucose 110 bilirubin is 2.8, AST 591 ALT 293 alk phos 8882 initial troponin is less than 50, albumin is 2.6, D-dimer is greater than 7000. CT chest rule out PE canceled due to GFR. Care is to be handed off to oncoming provider Syed Chaudhary pending possible transfer for bed capacity and further eval versus admission. Patient was given 10 mg of diltiazem bolus. At this time blood pressure is 90/70, heart rate 143 O2 sat 96% on room air. 1630-received signout from Anneliese Márquez NP. Please see previous documentation for initial presentation history and initial plan along with treatments. Patient was reassessed and continues to endorse shortness of breath difficulty breathing. He states that this is been since his colonoscopy. Upon review of his medical records patient was admitted for large bowel obstruction with question of colonic mass. Colonoscopy was performed and patient did have polyps removed and still pending pathology results for colonic mass. Patient has significant past medical history of past medical history of COPD, alcohol abuse, hypertension, atrial fibrillation, CHF, not on any blood thinners. Patient did have HOME and hypokalemia post procedure along with resolving episode of hematochezia postprocedure that has resolved. Patient denies any further rectal bleeding but states his shortness of breath is not improving. He is been using his inhalers and nebulizers. Patient is alert and oriented x3, communicating appropriately and speaking in full sentences but irritable. Patient continues to be in A. fib. Reviewed additional labs and patient does have significantly elevated BNP so we will hold off on further diltiazem bolus and attempt metoprolol bolus given that patient is typically on a beta-socrates for his atrial fibrillation. Patient also does have significant elevation of D-dimer which may be due to active colonic mass but PE is considered. Given that patient has poor renal function though I do not feel that we can safely perform CTA. 5 mg push of metoprolol did little to nothing for patient's rate and did not adversely affect his pressure. We will attempt 1 more diltiazem bolus while waiting for cardiology consult. Attempted to consult [facility] with stated they had no capacity even at ICU level for patient transfer but they were willing to consult. Decided to contact [facility] to see what their capacity was first before moving ahead with consult as I would prefer to consult with facility that could potentially accept patient. Pending speaking with consult second diltiazem push did seem to help a little bit more bring patient's rate into the 1 teens to 120s. We will start patient on diltiazem drip. Reviewed xray scan that showed stable chronic interstitial changes of the lung but similar to prior studies. Spoke to [facility] supply chain design manager Dr. Sandoval whom recommended continued diltiazem drip. He did state that he also recommended for patient to be anticoagulated and further investigation of elevated D-dimer or other potential causes for patient's uncontrollable A. fib with RVR. He stated that they also did not have any capacity to accept patient in transfer. We will touch base with general surgery who just did colonoscopy given that patient did have some rectal bleeding postprocedure to discuss anticoagulation as we continue to attempt rate control and attempt to locate available ICU bed. Was able to touch base with general surgery who had no hesitation about starting patient on heparin drip. Patient continued on diltiazem drip and rate did stabilize in 1 teens to low 120s. Did speak with hospitalist that recommended noncontrast CT for elevated LFTs but agreed to have patient admitted to the ICU. CT results were communicated to hospitalist. Patient in critical but stable condition throughout emergency department stay and was admitted to the ICU. Imaging Data Radiologic Study: Imaging: CT Scan Radiologist's impression: FINDINGS: Lungs: Moderate interstitial fibrosis in the lung bases, with moderate peripheral fibrocystic changes. Moderate bronchial wall thickening in the lung bases suggesting changes of chronic bronchitis. Heart: Heart size upper limits of normal. There is moderate calcification of the aortic valve. Coronary arteries: Moderate coronary artery calcification. Mediastinal space: The visualized distal esophagus is largely contracted without gross abnormality. Liver: Hepatomegaly measuring 21 cm craniocaudal. Question slight peripheral contour irregularity, possibly early cirrhotic changes. No mass lesions. No intrahepatic biliary ductal dilatation. Gallbladder and bile ducts: The gallbladder is partially contracted. Mild gallbladder wall thickening and adjacent stranding with small volume pericholecystic fluid along the gallbladder fossa. This might reflect changes of liver dysfunction and hypoproteinemia with wall edema although can not exclude cholecystitis, correlate clinically. Consider sonographic assessment as clinically indicated. Small calcified 3 mm gallstone in the gallbladder fundus. Nondilated bile ducts. Pancreas: Normal. No inflammatory changes or ductal dilation. Spleen: Normal. No splenomegaly. Adrenal glands: A 15 mm left adrenal nodule measures 15 Hounsfield units average density, unchanged from 04/15/2022. Prior chest CT angiogram 06/14/2019 was inadequate for comparison due to severe motion artifact on that exam. Recommend nonemergent evaluation with adrenal protocol CT or MRI. Right adrenal gland is normal. Kidneys and ureters: Moderate bilateral symmetrical perinephric stranding is increased since 04/15/2022, probably representing increasing perirenal edema from generalized anasarca although correlate clinically for medical renal disease. No hydronephrosis or hydroureter. No urinary tract stones are identified. Stomach and bowel: The stomach is largely contracted. The small bowel is nondilated with no gross abnormality. 12 mm ovoid hyperdense structure in the distal small bowel lumen has progressed mildly in position since the comparison exam on 04/15/2022, presumably ingested material such as antacids. There is colonic wall thickening throughout the mid and proximal colonic segments suggesting colitis, versus hepatic colopathy if there is evidence of liver dysfunction. No perforation or abscess. Mild distal colonic diverticulosis without diverticulitis. Appendix: The appendix is not identified. There is peritoneal fluid and stranding present, however this is not specifically centered on the right lower quadrant and more likely relates to generalized anasarca than appendicitis. Intraperitoneal space: Small to moderate volume peritoneal fluid in the central pelvis, right iliac fossa, perihepatic, and perisplenic distributions. Vasculature: Moderate atherosclerotic aortoiliac calcification without aneurysm. Lymph nodes: No adenopathy. Urinary bladder: The urinary bladder is moderately distended but otherwise unremarkable. Reproductive: Mildly enlarged prostate. Bones/joints: No acute osseous abnormalities. Old healed lower rib fractures bilaterally. Moderate lumbar spondylosis with multilevel advanced disc degenerative changes, most pronounced at L4-L5. Moderate canal stenosis L4-L5. Soft tissues: Mild-moderate soft tissue stranding/edema in the peripheral subcutaneous tissues, retroperitoneal soft tissue planes, mesenteric fat, and presacral space, suggesting volume overload or anasarca. IMPRESSION: 1. There is colonic wall thickening involving primarily the mid and proximal colonic segments suggesting colitis, or possibly hepatic colopathy. No evidence of perforation or abscess. 2. Hepatomegaly with slight peripheral liver contour irregularity which may reflect early changes of cirrhosis. Correlate clinically for liver dysfunction. 3. Mild gallbladder wall thickening and adjacent stranding suggesting cholecystitis versus gallbladder edema. Nondilated bile ducts. 3 mm calcified gallstone in the gallbladder fundus. 4. Mild-moderate generalized anasarca. 5. Small to moderate volume ascites. 6. The appendix is not identified. The pattern of generalized stranding and peritoneal fluid is felt to be more consistent with generalized edema rather than secondary changes of appendicitis although correlate clinically. 7. There is a 15 mm indeterminate left adrenal nodule. Recommend nonemergent assessment with adrenal protocol CT or MRI. 8. Additional nonemergent findings detailed above. HPI <Philomena Márquez NP - Last Filed: 04/26/22 23:06> General Mode of arrival: wheelchair. Date/Time Provider Initiated Documentation: 04/25/22 14:20. Limitations to Documentation: no limitations. Information obtained by: patient, RN notes reviewed and old records reviewed. HPI Narrative: 71-year-old male presents to the ER with a chief complaint of shortness of breath which has been ongoing since having a colonoscopy on 19 April. He states that he has been diagnosed possibly with rectal or abdominal cancer, he states that he is having orthopnea and waking at night with shortness of breath. He does have a history of COPD he reports that the his nebulizers are not working, other history includes?, aortic arthrosclerosis, hyponatremia, pulmonary fibrosis, hypertension atrial fibrillation and CHF. Related Data Home Medications Medication Instructions Recorded Confirmed albuterol sulfate 90 mcg/actuation 2 puff inhalation Q6H PRN 06/14/19 04/25/22 aerosol inhaler aspirin 81 mg chewable tablet 81 mg PO DAILY 06/14/19 04/25/22 atenolol 100 mg tablet 150 mg PO DAILY 06/14/19 04/25/22 losartan 100 mg tablet 100 mg PO DAILY 06/14/19 04/25/22 folic acid 1 mg tablet 1 mg PO DAILY #30 tabs 06/16/19 04/18/22 guaifenesin 600 mg tablet, 600 mg PO BID PRN PRN cough #10 06/16/19 04/18/22 extended release 12 hr (Mucinex) tabs ipratropium 0.5 mg-albuterol 3 mg 3 ml UPD Q4H PRN PRN shortness of 06/16/19 04/18/22 (2.5 mg base)/3 mL nebulization breath or wheezing #90 mL soln multivitamin (Multiple Vitamins 1 tab PO DAILY #30 tabs 06/16/19 04/25/22 tablet) thiamine mononitrate (vit B1) 100 100 mg PO DAILY #30 tabs 06/16/19 04/18/22 mg tablet (Vitamin B-1 (mononitrate)) atorvastatin 20 mg tablet 20 mg PO DAILY 04/16/22 04/25/22 umeclidinium 62.5 mcg-vilanterol 1 inh inhalation DAILY 04/16/22 04/25/22 25 mcg/actuation powdr for inhalation (Anoro Ellipta) atorvastatin 20 mg tablet mg 04/25/22 04/25/22 umeclidinium 62.5 mcg-vilanterol inhalation 04/25/22 04/25/22 25 mcg/actuation powdr for inhalation (Anoro Ellipta) Previous Rx's Medication Instructions Recorded folic acid 1 mg tablet 1 mg PO DAILY #30 tabs 06/16/19 guaifenesin 600 mg tablet, 600 mg PO BID PRN PRN cough #10 06/16/19 extended release 12 hr (Mucinex) tabs ipratropium 0.5 mg-albuterol 3 mg 3 ml UPD Q4H PRN PRN shortness of 06/16/19 (2.5 mg base)/3 mL nebulization breath or wheezing #90 mL soln multivitamin (Multiple Vitamins 1 tab PO DAILY #30 tabs 06/16/19 tablet) thiamine mononitrate (vit B1) 100 100 mg PO DAILY #30 tabs 06/16/19 mg tablet (Vitamin B-1 (mononitrate)) Allergies Allergy/AdvReac Type Severity Reaction Status Date / Time Penicillins Allergy Unknown Unverified 04/25/22 18:11 General Stated Complaint: GenMedical ANETA: 3 Review of Systems <Philomena Márquez NP - Last Filed: 04/26/22 23:06> All systems reviewed & are unremarkable except as noted in HPI and below Cardiovascular Cardiovascular: Reports dyspnea Respiratory Respiratory: Reports as per HPI, Reports dyspnea and Reports wheezing Allergic/Immunologic Allergic/Immunologic: Reports wheezing PFSH <Philomena Márquez NP - Last Filed: 04/26/22 23:06> All Active Problems (Updated 04/27/22 @ 09:58 by Shahriar Shoemaker MD) Tubular adenoma (Acute) Black stools (Acute) Disorientation, unspecified (Acute) H/O alcohol abuse (Chronic) HOME (acute kidney injury) (Acute) Elevated liver function tests (Acute) Acute dyspnea (Acute) Elevated d-dimer (Acute) Abnormal LFTs (Acute) Anasarca (Acute) Atrial fibrillation with rapid ventricular response (Acute) Acute hypokalemia (Acute) Colonoscopy causing post-procedural bleeding (Acute) Aortic atherosclerosis (Acute) ANGUIANO (nonalcoholic steatohepatitis) (Acute) Colonic mass (Acute) Hyponatremia (Acute) Discharge planning issues (Acute) DVT prophylaxis (Acute) CAP (community acquired pneumonia) (Acute) Pulmonary fibrosis (Chronic) Sepsis (Acute) Alcohol abuse (Chronic) Hypertension (Chronic) Atrial fibrillation (Chronic) Pneumonia (Acute) Medical History Tobacco abuse, in remission Surgical History Hx of appendectomy S/P colonoscopy with polypectomy S/P surgical manipulation of ankle joint Family History Paternal Grandmother Diabetes Uncle Cancer patient does not know what type Social History Smoking/Tobacco Use Status: Former Tobacco Use Quit Date: 04/28/16 Pack-years: 150 Tobacco: How many years used: 50 Smoking risk assessment performed?: Yes Alcohol Intake: current Alcohol Intake frequency: 3 or more drinks per day Alcohol type: beer Substance use type: marijuana Do you feel safe at home: Yes Do you feel safe in your relationship?: Yes Exam <Philomena Márquez NP - Last Filed: 04/26/22 23:06> Narrative Exam Narrative: Constitutional: Alert and oriented x3. Appears stated age. Normal body habitus. Appears chronically ill. Head: Normocephalic, no trauma. Eyes: Pupils PERRL, Red reflex noted, EOM's intact. Eyelids symmetrical without lesions, discharge, or swelling. ENT: Bilateral TM's WNL, External ear normal to inspection, no mastoid TTP, swelling, or erythema, Nasal turbinates WNL, no nasal discharge. Normal dentition, Posterior pharynx WNL, no exudate. Chest: Tachycardic normal S1, S2, distal pulses intact. Resp: Inspiratory and expiratory wheezes bilaterally, speaking in full sentences. Abdomen: Soft, non-distended, Normoactive bowel sounds all 4 quads. Musculoskeletal: Unable to assess gait, 5/5 strength to all four extremities. Skin: No suspicious rashes or lesions. Capillary refill less than 2 sec. Neurologic: Cranial nerves II-XII intact. Alert and oriented x 3. Motor: No deficits noted. Sensory: Intact bilaterally all 4 extremities. Hematologic/Lymphatic: No ecchymosis, no lymphadenopathy. Course <Philomena Márquez NP - Last Filed: 04/26/22 23:06> Vital Signs Vital signs: Vital Signs Temperature 36.9 C 04/25/22 14:22 Pulse 133 H 04/25/22 14:22 Respiratory Rate 22 04/25/22 14:22 Blood Pressure 88/72 L 04/25/22 14:22 Pulse Oximetry 94 04/25/22 14:22 Temperature 36.9 C 04/25/22 14:22 Temperature Source Temporal Artery Scan 04/25/22 14:22 Pulse 133 H 04/25/22 14:22 Respiratory Rate 22 04/25/22 14:22 Blood Pressure 88/72 L 04/25/22 14:22 Blood Pressure Position Sitting 04/25/22 14:22 Pulse Oximetry 94 04/25/22 14:22 Oxygen Delivery Method Room Air 04/25/22 14:22 Oxygen Flow Rate 0 04/25/22 14:22 <Irving Chaudhary NP - Last Filed: 04/28/22 09:11> Critical Care Time Critical Care Time: Yes Total Critical Care Time: 60 Attestation: Due to Afib with dificult to control RVR with high probability of imminent or life threatening deterioration in the patient?s condition without intervention and treatment. Time spent documenting, reviewing labs and radiographs, monitoring Vital signs, titration of meds, speaking with supply chain design manager and contacting multiple tertiary care centers along with speaking to hospitalist. Sign Out <Philomena Márquez NP - Last Filed: 04/26/22 23:06> Sign Out Data: Sign Out Comment: 71-year-old male presents with shortness of breath difficulty sleeping since colonoscopy on the . He reports that his inhalers were not helping. He does have a history of COPD, A. fib. He is in A. fib with RVR with a rate of 136 140, he is hypotensive current blood pressure is 94/70. He did get 10 mg of diltiazem bolus. BUN/creatinine are elevated from his baseline, he also has transaminitis. Last updated by Philomena Márquez NP at 04/25/22 16:26
[2022-04-25 15:17] LABS: Abs Immature Grans 0.62 10^3/uL (0.0-0.06); HCT 38.5 % (40.0-50.0); HGB 12.7 g/dL (13.5-17.5); MCH 30.8 pg (27.0-33.0); MCV 93 fL (80-95); MPV 9.5 fL (8.0-11.0); Platelet Count 154 10^3/uL (130-400); RBC 4.13 10^6/uL (4.36-5.78); RDW 14.1 % (11.8-14.1); RDW-SD 47.6 fL; WBC 5.71 10^3/uL (4.4-10.8)
[2022-04-25] MEDS: Albuterol/Ipratropium 3 ML UPD VIAL UPD (15:25)
[2022-04-25] MEDS: methylPREDNISolone SUCC 125 MG VIAL IVP (15:25)
[2022-04-25] MEDS: Normal Saline 500 ML 999 ML IV (15:26)
[2022-04-25 15:29] LABS: Absolute Lymphocyte Count 1.88 10^3/uL (1.2-3.4); Absolute Monocyte Count 0.23 10^3/uL (0.1-0.8); Atypical Lymphocytes % 13; Bands % 5
[2022-04-25 15:30] LABS: Diff Comment Manual Differential; RBC Morphology Normal
[2022-04-25 15:35] LABS: ALT 293 U/L (16-63); AST 591 U/L (15-37); Albumin 2.6 g/dL (3.4-5.0); Alkaline Phosphatase 882 U/L (46-116); Anion Gap 9.2 mmol/L (3-11); BUN 50 mg/dL (7-18); Bilirubin, Total 2.8 mg/dL (0.2-1.0); CO2 26.8 mmol/L (21.0-32.0); CREATININE 2.1 mg/dL (0.70-1.30); Calcium 9.3 mg/dL (8.5-10.1); Chloride 102 mmol/L (98-107); Estimated GFR 32.83 (mL/min/1.73m2); Glucose 110 mg/dL (74-106); Magnesium 2.3 mg/dL (1.8-2.4); Potassium 4.6 mmol/L (3.5-5.1); Sodium 138 mmol/L (136-145); Total Protein 6.9 g/dL (6.4-8.2); Troponin I 56 ng/L (<or=60)
[2022-04-25 15:45] LABS: D-Dimer > 7500 ng/mlFEU (<500)
[2022-04-25] MEDS: dilTIAZem 25 MG/5 ML VIAL 10 MG IVP ×2 (16:03→18:07)
[2022-04-25 16:53] LABS: NT-proBNP 19629 pg/mL (<300)
--- NOTE | 2022-04-25 17:20 | DI.RAD_ITS ---
Exam(s) XR PORTABLE CHEST AP EXAM: XR PORTABLE CHEST AP CLINICAL HISTORY: SOB,. TECHNIQUE: 2D digital imaging was performed. COMPARISON: CR,XR XR PORTABLE CHEST AP POST LINE from 04/16/2022 FINDINGS: Single AP portable view. Heart size is upper normal. The mediastinum is unchanged. Increased interstitial markings in lung long are unchanged from 04/16/2022. There are no new confl uent infiltrates. Pleural. No airspace pulmonary edema. IMPRESSION: Unchanged chronic-type interstitial markings in the lung long. Basically no change from 04/16/2022 . DATA REPOSITORY: RADIATION DOSE DELIVERED:
[2022-04-25] MEDS: Metoprolol 5 MG/5 ML VIAL IVP (17:27)
[2022-04-25 17:35] LABS: INR 1.2 (0.9-1.1); Prothrombin Time 12.2 sec (9.3-11.0)
--- NOTE | 2022-04-25 17:43 | DI.VRAD_ITS ---
PROCEDURE INFORMATION: Exam: XR Chest Exam date and time: 04/25/2022 4:56 PM Age: 71 years old Clinical indication: Shortness of breath TECHNIQUE: Imaging protocol: Radiologic exam of the chest. Views: 1 view. COMPARISON: XR PORTABLE CHEST AP POST LINE 16/04/2022 04:21 FINDINGS: Tubes, catheters and devices: EKG wires overlie the chest. Lungs: Prominent pulmonary vasculature. Patchy bilateral interstitial markings similar to prior study consistent with chronic interstitial lung disease. No focal consolidation. Pleural spaces: Unremarkable. No pleural effusion. No pneumothorax. Heart/Mediastinum: Cardiomegaly. Bones/joints: Multilevel degenerative changes of the spine. IMPRESSION: Stable chronic interstitial changes of the lung similar to prior study. Dictated and Authenticated by: Yelitza Slaed MD. Ordering:LUCRECIA Quach MD
[2022-04-25 18:21] LABS: Troponin I < 50 ng/L (<or=60)
[2022-04-25] MEDS: dilTIAZem 125 MG in Normal Saline 100 ML IV (18:30)
[2022-04-25 18:46] LABS: Anion Gap 10.1 mmol/L (3-11); BUN 50 mg/dL (7-18); CO2 25.9 mmol/L (21.0-32.0); CREATININE 2.1 mg/dL (0.70-1.30); Calcium 8.9 mg/dL (8.5-10.1); Chloride 103 mmol/L (98-107); Estimated GFR 32.83 (mL/min/1.73m2); Glucose 103 mg/dL (74-106); Potassium 4.8 mmol/L (3.5-5.1); Sodium 139 mmol/L (136-145)
[2022-04-25 19:54] LABS: Source Nasal/Nares
--- NOTE | 2022-04-25 20:15 | DI.CT_ITS ---
Exam(s) CT ABDOMEN PELVIS WO EXAM: CT ABDOMEN PELVIS WO CLINICAL HISTORY: elevated lft. TECHNIQUE: Imaging Protocol: Axial computed tomography images with coronal and sagittal reformatted images were created and reviewed. Oral: no COMPARISON: CT CT CHEST PE CTA from 06/14/[address] ABDOMEN PELVIS WO from 04/15/2022 FINDINGS: ABDOMEN: Lung Bases: Cardiomegaly. Coronary artery calcifications. No pericardial effusion. No pleural effu davis. Emphysematous and fibrotic changes of the some honeycombing at the lung bases. Liver: Enlarged liver with heterogeneous echotexture and a small amount of surrounding ascites.. Li erica size is increased significantly from the previous exam, measuring 23 cm transverse by 21 cm cepha lo caudad compared with 19 cm transverse by 15 cm cephalo caudad. The echotexture is also decreased when compared with the previous exam. No measurable mass. Gallbladder and biliary tract: Gallbladder mildly contracted. Stone faintly seen in the dependent po rtion. No biliary dilation. Pancreas: Normal density, no abnormal calcifications or inflammatory process. Spleen: Normal. Kidneys: Normal size, contour and axis. No radiodense stones or obstructive uropathy. No masses seen. Adrenal glands: Small left adrenal nodule consistent with adenoma. Lymph nodes: Within normal limits. Abdominal Aorta: Abdominal portion non-dilated. Severe atherosclerotic changes. Soft tissues: Mild subcutaneous edema greater on the right side. This is new since the prior exam. PELVIS: Bladder: Symmetric distention, no gross wall thickening. Bowel: Previously noted gaseous distension of the cecum no longer present. High-density lesions seen in small bowel has breast somewhat distally consistent with ingested material. Appendix not identif ied. Peritoneal cavity: Small amount ascites around liver and spleen. Small amount ascites in right lower quadrant and low pelvis. This is new since the prior exam. Reproductive organs: Mildly enlarged prostate. Bones: Old lower rib fractures. Degenerative disc changes. IMPRESSION: Interval increase in size of the liver and decreased echogenicity as well as new ascites compared wit h prior exam 10 days ago findings could represent superimposed hepatitis. No biliary dilatation. Ga llstone. RADIATION DOSE DELIVERED: 714.43mGy.cm Total DLP DATA REPOSITORY: All CT scans at this facility are submitted to the National Radiology Data Registry (NRDR) Dose Index Registry (DIR) with the [employer] (ACR). RADIATION OPTIMIZATION: All CT scans at this facility use at least one of these dose optimization te chniques: automated exposure control; mA and/or kV adjustment per patient size (includes targeted exa ms where dose is matched to clinical indication); or iterative reconstruction.
[2022-04-25 20:29] LABS: COVID-19 PCR Negative (Negative)
--- NOTE | 2022-04-25 21:25 | DI.VRAD_ITS ---
PROCEDURE INFORMATION: Exam: CT Abdomen And Pelvis Without Contrast Exam date and time: 04/25/2022 8:35 PM Age: 71 years old Clinical indication: Other: Elevated lft TECHNIQUE: Imaging protocol: Computed tomography of the abdomen and pelvis without contrast. Radiation optimization: All CT scans at this facility use at least one of these dose optimization techniques: automated exposure control; mA and/or kV adjustment per patient size (includes targeted exams where dose is matched to clinical indication); or iterative reconstruction. COMPARISON: CT ABDOMEN PELVIS WO 04/15/2022 8:24 PM FINDINGS: Lungs: Moderate interstitial fibrosis in the lung bases, with moderate peripheral fibrocystic changes. Moderate bronchial wall thickening in the lung bases suggesting changes of chronic bronchitis. Heart: Heart size upper limits of normal. There is moderate calcification of the aortic valve. Coronary arteries: Moderate coronary artery calcification. Mediastinal space: The visualized distal esophagus is largely contracted without gross abnormality. Liver: Hepatomegaly measuring 21 cm craniocaudal. Question slight peripheral contour irregularity, possibly early cirrhotic changes. No mass lesions. No intrahepatic biliary ductal dilatation. Gallbladder and bile ducts: The gallbladder is partially contracted. Mild gallbladder wall thickening and adjacent stranding with small volume pericholecystic fluid along the gallbladder fossa. This might reflect changes of liver dysfunction and hypoproteinemia with wall edema although can not exclude cholecystitis, correlate clinically. Consider sonographic assessment as clinically indicated. Small calcified 3 mm gallstone in the gallbladder fundus. Nondilated bile ducts. Pancreas: Normal. No inflammatory changes or ductal dilation. Spleen: Normal. No splenomegaly. Adrenal glands: A 15 mm left adrenal nodule measures 15 Hounsfield units average density, unchanged from 04/15/2022. Prior chest CT angiogram 06/14/2019 was inadequate for comparison due to severe motion artifact on that exam. Recommend nonemergent evaluation with adrenal protocol CT or MRI. Right adrenal gland is normal. Kidneys and ureters: Moderate bilateral symmetrical perinephric stranding is increased since 04/15/2022, probably representing increasing perirenal edema from generalized anasarca although correlate clinically for medical renal disease. No hydronephrosis or hydroureter. No urinary tract stones are identified. Stomach and bowel: The stomach is largely contracted. The small bowel is nondilated with no gross abnormality. 12 mm ovoid hyperdense structure in the distal small bowel lumen has progressed mildly in position since the comparison exam on 04/15/2022, presumably ingested material such as antacids. There is colonic wall thickening throughout the mid and proximal colonic segments suggesting colitis, versus hepatic colopathy if there is evidence of liver dysfunction. No perforation or abscess. Mild distal colonic diverticulosis without diverticulitis. Appendix: The appendix is not identified. There is peritoneal fluid and stranding present, however this is not specifically centered on the right lower quadrant and more likely relates to generalized anasarca than appendicitis. Intraperitoneal space: Small to moderate volume peritoneal fluid in the central pelvis, right iliac fossa, perihepatic, and perisplenic distributions. Vasculature: Moderate atherosclerotic aortoiliac calcification without aneurysm. Lymph nodes: No adenopathy. Urinary bladder: The urinary bladder is moderately distended but otherwise unremarkable. Reproductive: Mildly enlarged prostate. Bones/joints: No acute osseous abnormalities. Old healed lower rib fractures bilaterally. Moderate lumbar spondylosis with multilevel advanced disc degenerative changes, most pronounced at L4-L5. Moderate canal stenosis L4-L5. Soft tissues: Mild-moderate soft tissue stranding/edema in the peripheral subcutaneous tissues, retroperitoneal soft tissue planes, mesenteric fat, and presacral space, suggesting volume overload or anasarca. IMPRESSION: 1. There is colonic wall thickening involving primarily the mid and proximal colonic segments suggesting colitis, or possibly hepatic colopathy. No evidence of perforation or abscess. 2. Hepatomegaly with slight peripheral liver contour irregularity which may reflect early changes of cirrhosis. Correlate clinically for liver dysfunction. 3. Mild gallbladder wall thickening and adjacent stranding suggesting cholecystitis versus gallbladder edema. Nondilated bile ducts. 3 mm calcified gallstone in the gallbladder fundus. 4. Mild-moderate generalized anasarca. 5. Small to moderate volume ascites. 6. The appendix is not identified. The pattern of generalized stranding and peritoneal fluid is felt to be more consistent with generalized edema rather than secondary changes of appendicitis although correlate clinically. 7. There is a 15 mm indeterminate left adrenal nodule. Recommend nonemergent assessment with adrenal protocol CT or MRI. 8. Additional nonemergent findings detailed above. Dictated and Authenticated by: Francois Kulkarni MD. Ordering:KALI Villatoro MD
[2022-04-25 22:13] LABS: Lab Add On Test DONE
--- NOTE | 2022-04-25 22:16 | W.PM.HP.N ---
Date of service: 04/25/22 Time of Service: 22:16 Assessment and Plan Assessment and plan (1) Atrial fibrillation with rapid ventricular response: Status: Acute Assessment and plan: Admit to the ICU. Continue cardizem gtt initiated in the ED. TSH nml. Echo done recently (04/16/22) and does not need to be repeated. Continue empiric heparin gtt, but check hematest as the patient describes dark stools. Will ensure he is on a PPI. Given a positive D-dimer, obtain a VQ scan. (2) Acute CHF: Status: Acute Assessment and plan: I suspect that it is this and the Afib that are making the patient short of breath. CHF is rate related. Control HR. LVEF preserved and RVSP could not be estimated on echo 04/16/22. Monitor I/Os and daily weights. (3) Anasarca: Status: Acute Assessment and plan: Suspect the patient has underlying cirrhosis. Restrict sodium in diet. Diurese as BPs permit. (4) COPD (chronic obstructive pulmonary disease): Status: Suspected Assessment and plan: Does not appear to be in an acute exacerbation at this time. Will check procalcitonin as the patient does describe a productive cough. Levalbuterol for prn nebs. (5) Pulmonary fibrosis: Status: Chronic Assessment and plan: As above. Not requiring O2. (6) Abnormal LFTs: Status: Acute Assessment and plan: Suspect that this is due to congestive hepatopathy/gallbladder wall edema. Check hepatitis studies. C/s general surgery. Obtain procalcitonin. (7) Elevated d-dimer: Status: Acute Assessment and plan: OBtain a VQ scan in am. Empiric heparin gtt. (8) HOME (acute kidney injury): Status: Acute Assessment and plan: CT w/o evidence of obstructive uropathy. Suspect hypoperfusion from rapid Afib. However, urinary retention is also possible. Obtain bladder scans. Control HR. Obtain UA, UDS (9) H/O alcohol abuse: Status: Chronic Assessment and plan: Give IV thiamine given the patient's reports of episodes of disorientation. (10) Disorientation, unspecified: Status: Acute Assessment and plan: Not present during the exam today, but is being described by the patient himself. Check CT head, ammonia. Start IV thiamine. (11) Black stools: Status: Acute Assessment and plan: Check hematest, Monitor hemoglobins while on heparin gtt. (12) Discharge planning issues: Status: Acute Assessment and plan: DNR/DNI as per my conversation with the patient (13) DVT prophylaxis: Status: Acute Assessment and plan: ON therapeutic heparin gtt. Total Critical Care Time 60 minutes. History of Present Illness History of Present Illness Chief Complaint: Shortness of breath since colonoscopy on 04/19/22. Narrative: Mr Cooper is a 71 year old male with PMHx of COPD and pulmonary fibrosis, not on supplemental oxygen, Afib not on anticoagulation, hypertension, alcohol abuse, who is was discharged from the surgical service after an admission for a partial large bowel obstruction during which he underwent a colonoscopy with polpypectomy (on 04/18/22; pathology showing tubular adenoma), discharged on the day of procedure, who was again seen in our ED on the same day for rectal bleeding, who returned to [facility] ED today c/o shortness of breath worse since his colonoscopy, accopanied by orthopnea. The patient states that the shortness of breath has actually been going on for 3-4 weeks. He describes a productive cough and a subjective fever at home. He does not know the color of his sputum. He also describes multiple episodes of getting lost and not knowing where he is. He states that he stopped drinking at least 4 weeks ago cold turkey. He denies chest pain, sleeps in a recliner, enhdorses orthopnea and PND when lays flat. Otherwise, SOB is primarily with exertion. Denies n/v/abdominal pain. Endorses black stools. He has not seen red blood since his ER visit. He does endorse constipation and takes stool softeners at home. In the ED, his HR was in 140s. He received two pushes of diltiazem 10 mg as well as a push of metoprolol 5 mg IV prior to being started on a cardizem gtt. His heart rates are now in 110s and 120s. His BP is 97/71. He also did get a duoneb and a dose of steroids in the ED. He was found to be in HOME and so, even though his d-dimer was very elevated, a CTA could not be obtained. The patient was started empirically on a heparin gtt with plans for a VQ scan tomorrow. The patient was also found to have elevated LFTs (AST of 591, ALT of 293, alk phos 882) with CT of the abdomen/pelvis (w/o contrast) showing possible early cirrhosis as well as mild gallbladder wall thickening with stranding, suggestive of cholecystitis vs gallbladder edema. There was generalized anasarca seen on CT as well with ascites. General surgery is being consulted to help differentiate possible acute cholecystitis from the congestive etiologiest of transaminitis. Hospitalist admission the ICU was requested. Review of Systems All systems reviewed & are unremarkable except as noted in HPI and below PFSH All Active Problems (Updated 04/26/22 @ 00:39 by Ghislaine Rodriguez MD) Black stools (Acute) Disorientation, unspecified (Acute) H/O alcohol abuse (Chronic) HOME (acute kidney injury) (Acute) Elevated liver function tests (Acute) Acute dyspnea (Acute) Elevated d-dimer (Acute) Abnormal LFTs (Acute) Anasarca (Acute) Acute CHF (Acute) Atrial fibrillation with rapid ventricular response (Acute) Acute hypokalemia (Acute) Colonoscopy causing post-procedural bleeding (Acute) Aortic atherosclerosis (Acute) ANGUIANO (nonalcoholic steatohepatitis) (Acute) Colonic mass (Acute) Hyponatremia (Acute) Discharge planning issues (Acute) DVT prophylaxis (Acute) CAP (community acquired pneumonia) (Acute) Pulmonary fibrosis (Chronic) Sepsis (Acute) Alcohol abuse (Chronic) Hypertension (Chronic) Atrial fibrillation (Chronic) Pneumonia (Acute) CHF (congestive heart failure) (Chronic) Medical History (Updated 04/26/22 @ 00:39 by Ghislaine Rodriguez MD) Tobacco abuse, in remission Surgical History (Updated 04/25/22 @ 22:34 by Ghislaine Rodriguez MD) Hx of appendectomy S/P colonoscopy with polypectomy S/P surgical manipulation of ankle joint Family History Paternal Grandmother Diabetes Uncle Cancer patient does not know what type Social History Smoking/Tobacco Use Status: Former Tobacco Use Quit Date: 04/28/16 Pack-years: 150 Tobacco: How many years used: 50 Smoking risk assessment performed?: Yes Alcohol Intake: current Alcohol Intake frequency: 3 or more drinks per day Alcohol type: beer Substance use type: marijuana Do you feel safe at home: Yes Do you feel safe in your relationship?: Yes Meds Allergies and Home Medications Allergies Allergy/AdvReac Type Severity Reaction Status Date / Time Penicillins Allergy Unknown Unverified 04/25/22 18:11 Home Medications Medication Instructions Recorded Confirmed Type albuterol sulfate 90 mcg/actuation 2 puff inhalation Q6H PRN 06/14/19 04/25/22 History aerosol inhaler aspirin 81 mg chewable tablet 81 mg PO DAILY 06/14/19 04/25/22 History atenolol 100 mg tablet 150 mg PO DAILY 06/14/19 04/25/22 History losartan 100 mg tablet 100 mg PO DAILY 06/14/19 04/25/22 History folic acid 1 mg tablet 1 mg PO DAILY #30 tabs 06/16/19 04/18/22 Rx guaifenesin 600 mg tablet, 600 mg PO BID PRN PRN cough #10 06/16/19 04/18/22 Rx extended release 12 hr (Mucinex) tabs ipratropium 0.5 mg-albuterol 3 mg 3 ml UPD Q4H PRN PRN shortness of 06/16/19 04/18/22 Rx (2.5 mg base)/3 mL nebulization breath or wheezing #90 mL soln multivitamin (Multiple Vitamins 1 tab PO DAILY #30 tabs 06/16/19 04/25/22 Rx tablet) thiamine mononitrate (vit B1) 100 100 mg PO DAILY #30 tabs 06/16/19 04/18/22 Rx mg tablet (Vitamin B-1 (mononitrate)) atorvastatin 20 mg tablet 20 mg PO DAILY 04/16/22 04/25/22 History umeclidinium 62.5 mcg-vilanterol 1 inh inhalation DAILY 04/16/22 04/25/22 History 25 mcg/actuation powdr for inhalation (Anoro Ellipta) atorvastatin 20 mg tablet mg 04/25/22 04/25/22 History umeclidinium 62.5 mcg-vilanterol inhalation 04/25/22 04/25/22 History 25 mcg/actuation powdr for inhalation (Anoro Ellipta) Exam Narrative Exam Narrative: General: Elderly male who is A&Ox3, vague history provider, laying flat in bed without dyspnea or tachypnea, does have a moist cough, on RA Neurological: A&Ox3, no focal deficits Psychiatric: Anxious, irritable, but deescalates easily with appropriate speech pattern/content Skin: Visible skin intact HEENT: atraumatic, normocephalic, EOMI, dry MM, clear oropharynx, no submandibular or cervical lymphadenopathy, no goiter or JVD Cardiovascular: Irregularly irregular rhythm, tachycardic, no m/r/g Lungs: Diminished breath sounds B Gastrointestinal: soft, nontender in RUQ, liver palpable, nondistended Genitourinary: deferred Extremities: +1 edema at B feet, trace pedal pulses B, no c/c Results Imaging Additional studies: CT abdomen/pelvis w/o contrast: 1. There is colonic wall thickening involving primarily the mid and proximal colonic segments suggesting colitis, or possibly hepatic colopathy. No evidence of perforation or abscess. 2. Hepatomegaly with slight peripheral liver contour irregularity which may reflect early changes of cirrhosis. Correlate clinically for liver dysfunction. 3. Mild gallbladder wall thickening and adjacent stranding suggesting cholecystitis versus gallbladder edema. Nondilated bile ducts. 3 mm calcified gallstone in the gallbladder fundus. 4. Mild-moderate generalized anasarca. 5. Small to moderate volume ascites. 6. The appendix is not identified. The pattern of generalized stranding and peritoneal fluid is felt to be more consistent with generalized edema rather than secondary changes of appendicitis although correlate clinically. 7. There is a 15 mm indeterminate left adrenal nodule. Recommend nonemergent assessment with adrenal protocol CT or MRI. CXR; Unchanged chronic-type interstitial markings in the lung long.? Basically no change from 04/16/2022. EKG: Afib, HR 135, diffuse nonspecific ST-T changes. Echo 04/16/22: Normal left ventricular wall thickness and chamber size.? Estimated ejection fraction is 60%.? Wall motion is normal Normal right ventricular size and systolic function Both atria are normal in size Aortic valve is calcified.? There is mild aortic stenosis with a peak gradient of 18, mean 10 mmHg.? Calculated aortic valve area is 1.46 cm??.? There is no aortic regurgitation Normal mitral valve with trace regurgitation Normal tricuspid valve with trace to mild regurgitation.? Right ventricular systolic pressure could not be estimated Mildly dilated ascending aorta measuring 3.65 cm Labs Result diagrams: 04/25/22 15:07 04/25/22 18:32 Labs: Laboratory Results - last 24 hr 04/25/22 04/25/22 04/25/22 15:07 15:07 15:07 WBC 5.71 RBC 4.13 L Hgb 12.7 L Hct 38.5 L MCV 93 MCH 30.8 MCHC 33.0 RDW 14.1 Plt Count 154 MPV 9.5 Immature Gran % 0.0 Neutrophils % 58.0 Band Neutrophils % 5 Lymphocytes % 20.0 Atypical Lymphs % 13 Monocytes % 4.0 Eosinophils % 0.0 Basophils % 0.0 Nucleated RBC % 4.0 H Absolute Neutrophils 3.60 Absolute Lymphocytes 1.88 Absolute Monocytes 0.23 Absolute Eosinophils 0.00 Absolute Basophils 0.00 RBC Morphology Normal PT INR APTT D-Dimer > 7500 H Sodium 138 Potassium 4.6 Chloride 102 Carbon Dioxide 26.8 Anion Gap 9.2 BUN 50 H Creatinine 2.1 H Est GFR (CKD-EPI 2020) 32.83 Glucose 110 H Calcium 9.3 Magnesium 2.3 Total Bilirubin 2.8 H AST 591 H ALT 293 H Alkaline Phosphatase 882 H Troponin I 56 NT-Pro-B Natriuret Pep Total Protein 6.9 Albumin 2.6 L COVID-19 Source SARS-CoV-2 (PCR) Add-On Test Request 04/25/22 04/25/22 04/25/22 15:07 17:14 17:59 WBC RBC Hgb Hct MCV MCH MCHC RDW Plt Count MPV Immature Gran % Neutrophils % Band Neutrophils % Lymphocytes % Atypical Lymphs % Monocytes % Eosinophils % Basophils % Nucleated RBC % Absolute Neutrophils Absolute Lymphocytes Absolute Monocytes Absolute Eosinophils Absolute Basophils RBC Morphology PT 12.2 H INR 1.2 H APTT 21.0 D-Dimer Sodium Potassium Chloride Carbon Dioxide Anion Gap BUN Creatinine Est GFR (CKD-EPI 2020) Glucose Calcium Magnesium Total Bilirubin AST ALT Alkaline Phosphatase Troponin I < 50 NT-Pro-B Natriuret Pep 34407 H Total Protein Albumin COVID-19 Source SARS-CoV-2 (PCR) Add-On Test Request 04/25/22 04/25/22 04/25/22 18:32 19:50 22:02 WBC RBC Hgb Hct MCV MCH MCHC RDW Plt Count MPV Immature Gran % Neutrophils % Band Neutrophils % Lymphocytes % Atypical Lymphs % Monocytes % Eosinophils % Basophils % Nucleated RBC % Absolute Neutrophils Absolute Lymphocytes Absolute Monocytes Absolute Eosinophils Absolute Basophils RBC Morphology PT INR APTT D-Dimer Sodium 139 Potassium 4.8 Chloride 103 Carbon Dioxide 25.9 Anion Gap 10.1 BUN 50 H Creatinine 2.1 H Est GFR (CKD-EPI 2020) 32.83 Glucose 103 Calcium 8.9 Magnesium Total Bilirubin AST ALT Alkaline Phosphatase Troponin I NT-Pro-B Natriuret Pep Total Protein Albumin COVID-19 Source Nasal/Nares SARS-CoV-2 (PCR) Negative Add-On Test Request DONE Last Vital Signs Temp 36.9 C 04/25/22 14:22 Pulse 142 H 04/25/22 18:07 Resp 22 04/25/22 15:41 BP 109/83 04/25/22 18:07 Pulse Ox 94 04/25/22 14:22
[2022-04-25 22:48] LABS: Acetaminophen < 2 ug/mL (10-30)
[2022-04-25 23:21] LABS: FREE T4 1.29 ng/dL (0.76-1.46); TSH 0.51 uIU/mL (0.36-3.74)
[2022-04-26] VITALS (137 sets, daily range): BP systolic 52–117; BP diastolic 38–86; PULSE 57–184; RESP 1–31; TEMP 36–36.3; O2SAT 91–100
--- NOTE | 2022-04-26 | DI.US_ITS ---
Exam(s) US ABDOMEN EXAM: US ABDOMEN CLINICAL HISTORY: r/o acute cholecystitis TECHNIQUE: Ultrasound abdomen performed using standard protocol. COMPARISON: CT CT ABDOMEN PELVIS WO from 04/25/2022 FINDINGS: LIVER: Enlarged at 19 cm. Heterogeneous nodular echotexture. No focal liver lesions are seen.. GALLBLADDER: Contracted, not well evaluated.. 5 millimeter stone. Gallbladder wall thickening. HUGO'S SIGN: Negative. BILIARY SYSTEM: No intrahepatic or extrahepatic biliary ductal dilation. KIDNEYS: Kidneys are symmetric in size. No evidence of renal calculi. No evidence of hydronephrosis. No renal mass or cyst identified. PANCREAS: Normal where visualized. SPLEEN: Not enlarged. ABDOMINAL AORTA AND IVC: Visualized portions normal caliber. ASCITES: Some small amount noted around the liver as well as right lower quadrant. Some fluid around the gallbladder. IMPRESSION: Enlarged cirrhotic appearing liver with a small amount of surrounding ascites. Contracted gallbladder with stone. No evidence of acute cholecystitis. DATA REPOSITORY:
--- NOTE | 2022-04-26 | DI.US_ITS ---
Exam(s) US EXTREMITY VENOUS BI EXAM: US EXTREMITY VENOUS BI CLINICAL HISTORY: r/o DVT. TECHNIQUE: Bilateral lower extremity venous ultrasound performed using grayscale, color-flow, and sp ectral Doppler analysis. COMPARISON: CT CT ABDOMEN PELVIS WO from 04/15/[address] LUMBAR SPINE RECONS from 04/15/[address] ABDOMEN PELVIS WO from 04/25/2022 FINDINGS: The bilateral common femoral, femoral and popliteal veins demonstrate normal compressibility, augment ation, and color Doppler. The posterior tibial veins are patent. Significant atherosclerotic plaque is noted bilaterally in the femoral arteries. IMPRESSION: Right: Negative for DVT Left: Negative for DVT DATA REPOSITORY:
[2022-04-26 00:53] LABS: Bilirubin Negative (Negative); Blood Negative (Negative); Clarity Clear (Clear); Glucose Negative (Negative); Ketones Negative (Negative); Leukocyte Esterase Negative (Negative); Nitrite Negative (Negative); Urobilinogen 0.2 EU/dL (Up TO 0.2); pH 5.5 (5-8)
[2022-04-26 01:08] LABS: *AMPHETAMINES SCREEN URINE Negative (Negative); *BARBITURATES SCREEN URINE Negative (Negative); *BENZODIAZEPINES SCREEN URINE Negative (Negative); Cannabinoids THC Positive (Negative); Cocaine Screen,Urine Negative (Negative); METHADONE URINE SCREEN Negative (Negative); OPIATES URINE SCREEN Negative (Negative)
[2022-04-26 01:09] LABS: Tricyclic Antidepressants Negative (Negative)
[2022-04-26] MEDS: dilTIAZem 125 MG in Normal Saline 100 ML 15 MG IV ×2 (01:45→20:48)
[2022-04-26 01:55] LABS: Procalcitonin 8.4 ng/mL
[2022-04-26] MEDS: Normal Saline 250 ML 999 ML IV (02:00)
[2022-04-26] MEDS: THIAMINE 500 MG in Normal Saline 100 ML 200 MG IVPB ×3 (02:34→17:26)
[2022-04-26 02:39] LABS: PTT Activated 73.1 sec (21.0-27.5)
[2022-04-26] MEDS: Thiamine 200 MG/2 ML VIAL (03:41)
[2022-04-26] MEDS: Normal Saline 250 ML IV (04:46)
[2022-04-26 05:42] LABS: HCT 35.3 % (40.0-50.0); HGB 11.5 g/dL (13.5-17.5); MCHC 32.6 % (32.0-36.0); MCV 95 fL (80-95); MPV 10.4 fL (8.0-11.0); Platelet Count 138 10^3/uL (130-400); RBC 3.71 10^6/uL (4.36-5.78); RDW 14.3 % (11.8-14.1); RDW-SD 49.3 fL; WBC 5.78 10^3/uL (4.4-10.8)
[2022-04-26 05:57] LABS: Ammonia 46 umol/L (11-32)
[2022-04-26 06:17] LABS: ALT 318 U/L (16-63); AST 603 U/L (15-37); Albumin 2.2 g/dL (3.4-5.0); Alkaline Phosphatase 778 U/L (46-116); Anion Gap 15.7 mmol/L (3-11); BUN 60 mg/dL (7-18); Bilirubin, Direct 2.2 mg/dL (0.0-0.2); Bilirubin, Total 2.9 mg/dL (0.2-1.0); CO2 18.3 mmol/L (21.0-32.0); CREATININE 2.3 mg/dL (0.70-1.30); Calcium 8.4 mg/dL (8.5-10.1); Chloride 103 mmol/L (98-107); Estimated GFR 29.43 (mL/min/1.73m2); Glucose 119 mg/dL (74-106); Magnesium 2.3 mg/dL (1.8-2.4); Sodium 137 mmol/L (136-145); TSH (W/Ref FT4) 0.42 uIU/mL (0.36-3.74); Total Protein 6.1 g/dL (6.4-8.2)
[2022-04-26 06:38] LABS: Absolute Basophil Count 0.06 10^3/uL (0.0-0.2); Absolute Lymphocyte Count 0.92 10^3/uL (1.2-3.4); Absolute Monocyte Count 0.17 10^3/uL (0.1-0.8); Absolute Neutrophil Count 4.39 10^3/uL (1.2-6.7); Atypical Lymphocytes % 1; Bands % 6; Metamyelocytes % 3
[2022-04-26 06:39] LABS: Diff Comment Manual Differential; Myelocytes % 1; Polychromasia Present
--- NOTE | 2022-04-26 08:00 | DI.NM_ITS ---
Exam(s) NM LUNG SCAN VENT PERF GRP EXAM: NM LUNG SCAN VENT PERF GRP CLINICAL HISTORY: shortness of breath, elevated d-dimer, ?PE. TECHNIQUE: Injected Dose: Ventilation: 30 mCi Tc-99m DTPA via inhalation Perfusion: 4 mCi Tc-99m MAA via IV COMPARISON: CT CT CHEST PE CTA from 06/14/[address] ABDOMEN PELVIS WO from 04/25/2022 CR,XR XR PORTABLE CHEST AP from 04/25/2022 FINDINGS: Chest X-Ray: Limited portable exam, grossly clear lungs. CT showed honeycombing at the lung bases. Perfusion: Mild patchiness. Perfusion appears better than ventilation. Ventilation:Mild bilateral patchiness of ventilation greater in the upper lobes. IMPRESSION: 1. Low probability VQ examination. . . . Modified PIOPED II criteria Probability Criteria High Two or more segments of V/Q mismatch Low Normal Perfusion, Non segmental perfusion abnormalitie s, pleural effusion in at least 1/3 of pleural cavity with no other defect Radiograph/perfusion matched defect in mid to upper lung confined to segment, one to three small segmental perfusion defects (<25% of segment) Perfusion defect smaller than corresponding radiogra phic lesion. Intermediate All other findings DATA REPOSITORY:
--- NOTE | 2022-04-26 08:10 | W.SURGCON ---
Documented by User: TOMY Dawson 04/26/22 08:23 Date of service: 04/26/22 Time of Service: 08:10 Assessment and Plan Assessment and plan (1) H/O alcohol abuse: Status: Chronic (2) Elevated liver function tests: Status: Acute Assessment and plan: Patient denies having abdominal pain. Abdominal exam was unremarkable. WBC WNL, however alkaline phosphatase and bilirubin are elevated. Low suspicion for cholecystitis at this time, however will order abdominal US for further evaluation given elevated lab values. (3) Abnormal LFTs: Status: Acute History of Present Illness Narrative: 71 y/o male whom was admitted to the hospitalist service for acute CHF and COPD exacerbation was seen this morning for concerning findings on CT scan, at which time cholecystitis was not able to be r/o. Upon arrival patient was independent with transferring to the edge of bed. Patient denies having any abdominal pain, nausea or vomiting. He states his main complaints was due to being SOB. He denies any fevers, chills or night sweats. PFSH All Active Problems Black stools (Acute) Disorientation, unspecified (Acute) H/O alcohol abuse (Chronic) HOME (acute kidney injury) (Acute) Elevated liver function tests (Acute) Acute dyspnea (Acute) Elevated d-dimer (Acute) Abnormal LFTs (Acute) Anasarca (Acute) Atrial fibrillation with rapid ventricular response (Acute) Acute hypokalemia (Acute) Colonoscopy causing post-procedural bleeding (Acute) Aortic atherosclerosis (Acute) ANGUIANO (nonalcoholic steatohepatitis) (Acute) Colonic mass (Acute) Hyponatremia (Acute) Discharge planning issues (Acute) DVT prophylaxis (Acute) CAP (community acquired pneumonia) (Acute) Pulmonary fibrosis (Chronic) Sepsis (Acute) Alcohol abuse (Chronic) Hypertension (Chronic) Atrial fibrillation (Chronic) Pneumonia (Acute) Medical History Tobacco abuse, in remission Surgical History Hx of appendectomy S/P colonoscopy with polypectomy S/P surgical manipulation of ankle joint Family History Paternal Grandmother Diabetes Uncle Cancer patient does not know what type Social History Smoking/Tobacco Use Status: Former Tobacco Use Quit Date: 04/28/16 Pack-years: 150 Tobacco: How many years used: 50 Smoking risk assessment performed?: Yes Alcohol Intake: current Alcohol Intake frequency: 3 or more drinks per day Alcohol type: beer Substance use type: marijuana Do you feel safe at home: Yes Do you feel safe in your relationship?: Yes Exam Const General: cooperative and comfortable Orientation: alert and oriented x3 Resp Effort & Inspection: normal respiratory effort, no audible wheezes and no cough GI Inspection: edema Palpation: soft, no guarding and nontender Other: Patient did not have any abdominal discomfort. Negative [place] sign, No signs of peritonitis. Results Last Vital Signs Temp 36.3 C L 04/26/22 00:30 Pulse 103 H 04/26/22 04:30 Resp 15 04/26/22 04:31 BP 83/54 L 04/26/22 04:30 Pulse Ox 97 04/26/22 04:31 Labs Result diagrams: 04/26/22 05:32 04/26/22 05:32 Labs: Laboratory Results - last 24 hr 04/25/22 04/25/22 04/25/22 15:07 15:07 15:07 WBC 5.71 RBC 4.13 L Hgb 12.7 L Hct 38.5 L MCV 93 MCH 30.8 MCHC 33.0 RDW 14.1 Plt Count 154 MPV 9.5 Immature Gran % 0.0 Neutrophils % 58.0 Band Neutrophils % 5 Lymphocytes % 20.0 Atypical Lymphs % 13 Monocytes % 4.0 Eosinophils % 0.0 Basophils % 0.0 Metamyelocytes % Myelocytes % Nucleated RBC % 4.0 H Absolute Neutrophils 3.60 Absolute Lymphocytes 1.88 Absolute Monocytes 0.23 Absolute Eosinophils 0.00 Absolute Basophils 0.00 RBC Morphology Normal Polychromasia PT INR APTT D-Dimer > 7500 H Sodium 138 Potassium 4.6 Chloride 102 Carbon Dioxide 26.8 Anion Gap 9.2 BUN 50 H Creatinine 2.1 H Est GFR (CKD-EPI 2020) 32.83 Glucose 110 H Calcium 9.3 Magnesium 2.3 Total Bilirubin 2.8 H Conjugated Bilirubin AST 591 H ALT 293 H Alkaline Phosphatase 882 H Ammonia Troponin I 56 NT-Pro-B Natriuret Pep Total Protein 6.9 Albumin 2.6 L Procalcitonin TSH Free T4 Urine Color Urine Clarity Urine pH Ur Specific [place] Urine Protein Urine Ketones Urine Blood Urine Nitrite Urine Bilirubin Urine Urobilinogen Ur Leukocyte Esterase Urine Glucose Urine Opiates Screen Urine Methadone Screen Acetaminophen Ur Barbiturates Screen Ur Tricyclics Screen Ur Amphetamines Screen U Benzodiazepines Scrn Urine Cocaine Screen Ur THC Screen COVID-19 Source SARS-CoV-2 (PCR) Add-On Test Request 04/25/22 04/25/22 04/25/22 15:07 17:14 17:59 WBC RBC Hgb Hct MCV MCH MCHC RDW Plt Count MPV Immature Gran % Neutrophils % Band Neutrophils % Lymphocytes % Atypical Lymphs % Monocytes % Eosinophils % Basophils % Metamyelocytes % Myelocytes % Nucleated RBC % Absolute Neutrophils Absolute Lymphocytes Absolute Monocytes Absolute Eosinophils Absolute Basophils RBC Morphology Polychromasia PT 12.2 H INR 1.2 H APTT 21.0 D-Dimer Sodium Potassium Chloride Carbon Dioxide Anion Gap BUN Creatinine Est GFR (CKD-EPI 2020) Glucose Calcium Magnesium Total Bilirubin Conjugated Bilirubin AST ALT Alkaline Phosphatase Ammonia Troponin I < 50 NT-Pro-B Natriuret Pep 25614 H Total Protein Albumin Procalcitonin TSH Free T4 Urine Color Urine Clarity Urine pH Ur Specific [place] Urine Protein Urine Ketones Urine Blood Urine Nitrite Urine Bilirubin Urine Urobilinogen Ur Leukocyte Esterase Urine Glucose Urine Opiates Screen Urine Methadone Screen Acetaminophen Ur Barbiturates Screen Ur Tricyclics Screen Ur Amphetamines Screen U Benzodiazepines Scrn Urine Cocaine Screen Ur THC Screen COVID-19 Source SARS-CoV-2 (PCR) Add-On Test Request 04/25/22 04/25/22 04/25/22 18:32 18:32 18:32 WBC RBC Hgb Hct MCV MCH MCHC RDW Plt Count MPV Immature Gran % Neutrophils % Band Neutrophils % Lymphocytes % Atypical Lymphs % Monocytes % Eosinophils % Basophils % Metamyelocytes % Myelocytes % Nucleated RBC % Absolute Neutrophils Absolute Lymphocytes Absolute Monocytes Absolute Eosinophils Absolute Basophils RBC Morphology Polychromasia PT INR APTT D-Dimer Sodium 139 Potassium 4.8 Chloride 103 Carbon Dioxide 25.9 Anion Gap 10.1 BUN 50 H Creatinine 2.1 H Est GFR (CKD-EPI 2020) 32.83 Glucose 103 Calcium 8.9 Magnesium Total Bilirubin Conjugated Bilirubin AST ALT Alkaline Phosphatase Ammonia Troponin I NT-Pro-B Natriuret Pep Total Protein Albumin Procalcitonin TSH Free T4 Urine Color Urine Clarity Urine pH Ur Specific [place] Urine Protein Urine Ketones Urine Blood Urine Nitrite Urine Bilirubin Urine Urobilinogen Ur Leukocyte Esterase Urine Glucose Urine Opiates Screen Urine Methadone Screen Acetaminophen Cancelled < 2 Ur Barbiturates Screen Ur Tricyclics Screen Ur Amphetamines Screen U Benzodiazepines Scrn Urine Cocaine Screen Ur THC Screen COVID-19 Source SARS-CoV-2 (PCR) Add-On Test Request 04/25/22 04/25/22 04/25/22 18:32 18:32 19:50 WBC RBC Hgb Hct MCV MCH MCHC RDW Plt Count MPV Immature Gran % Neutrophils % Band Neutrophils % Lymphocytes % Atypical Lymphs % Monocytes % Eosinophils % Basophils % Metamyelocytes % Myelocytes % Nucleated RBC % Absolute Neutrophils Absolute Lymphocytes Absolute Monocytes Absolute Eosinophils Absolute Basophils RBC Morphology Polychromasia PT INR APTT D-Dimer Sodium Potassium Chloride Carbon Dioxide Anion Gap BUN Creatinine Est GFR (CKD-EPI 2020) Glucose Calcium Magnesium Total Bilirubin Conjugated Bilirubin AST ALT Alkaline Phosphatase Ammonia Troponin I NT-Pro-B Natriuret Pep Total Protein Albumin Procalcitonin 8.4 TSH 0.51 Free T4 1.29 Urine Color Urine Clarity Urine pH Ur Specific [place] Urine Protein Urine Ketones Urine Blood Urine Nitrite Urine Bilirubin Urine Urobilinogen Ur Leukocyte Esterase Urine Glucose Urine Opiates Screen Urine Methadone Screen Acetaminophen Ur Barbiturates Screen Ur Tricyclics Screen Ur Amphetamines Screen U Benzodiazepines Scrn Urine Cocaine Screen Ur THC Screen COVID-19 Source Nasal/Nares SARS-CoV-2 (PCR) Negative Add-On Test Request 04/25/22 04/26/22 04/26/22 22:02 00:45 00:45 WBC RBC Hgb Hct MCV MCH MCHC RDW Plt Count MPV Immature Gran % Neutrophils % Band Neutrophils % Lymphocytes % Atypical Lymphs % Monocytes % Eosinophils % Basophils % Metamyelocytes % Myelocytes % Nucleated RBC % Absolute Neutrophils Absolute Lymphocytes Absolute Monocytes Absolute Eosinophils Absolute Basophils RBC Morphology Polychromasia PT INR APTT D-Dimer Sodium Potassium Chloride Carbon Dioxide Anion Gap BUN Creatinine Est GFR (CKD-EPI 2020) Glucose Calcium Magnesium Total Bilirubin Conjugated Bilirubin AST ALT Alkaline Phosphatase Ammonia Troponin I NT-Pro-B Natriuret Pep Total Protein Albumin Procalcitonin TSH Free T4 Urine Color Yellow Urine Clarity Clear Urine pH 5.5 Ur Specific [place] 1.020 Urine Protein Negative Urine Ketones Negative Urine Blood Negative Urine Nitrite Negative Urine Bilirubin Negative Urine Urobilinogen 0.2 Ur Leukocyte Esterase Negative Urine Glucose Negative Urine Opiates Screen Negative Urine Methadone Screen Negative Acetaminophen Ur Barbiturates Screen Negative Ur Tricyclics Screen Negative Ur Amphetamines Screen Negative U Benzodiazepines Scrn Negative Urine Cocaine Screen Negative Ur THC Screen Positive A COVID-19 Source SARS-CoV-2 (PCR) Add-On Test Request DONE 04/26/22 04/26/22 04/26/22 02:20 05:32 05:32 WBC 5.78 RBC 3.71 L Hgb 11.5 L Hct 35.3 L MCV 95 MCH 31.0 MCHC 32.6 RDW 14.3 H Plt Count 138 MPV 10.4 Immature Gran % 0.0 Neutrophils % 70.0 Band Neutrophils % 6 Lymphocytes % 15.0 Atypical Lymphs % 1 Monocytes % 3.0 Eosinophils % 0.0 Basophils % 1.0 Metamyelocytes % 3 Myelocytes % 1 Nucleated RBC % 5.0 H Absolute Neutrophils 4.39 Absolute Lymphocytes 0.92 L Absolute Monocytes 0.17 Absolute Eosinophils 0.00 Absolute Basophils 0.06 RBC Morphology See Below Polychromasia Present PT INR APTT 73.1 H D-Dimer Sodium 137 Potassium 5.0 Chloride 103 Carbon Dioxide 18.3 L Anion Gap 15.7 H BUN 60 H Creatinine 2.3 H Est GFR (CKD-EPI 2020) 29.43 Glucose 119 H Calcium 8.4 L Magnesium 2.3 Total Bilirubin 2.9 H Conjugated Bilirubin 2.2 H AST 603 H ALT 318 H Alkaline Phosphatase 778 H Ammonia Troponin I NT-Pro-B Natriuret Pep Total Protein 6.1 L Albumin 2.2 L Procalcitonin TSH 0.42 Free T4 Urine Color Urine Clarity Urine pH Ur Specific [place] Urine Protein Urine Ketones Urine Blood Urine Nitrite Urine Bilirubin Urine Urobilinogen Ur Leukocyte Esterase Urine Glucose Urine Opiates Screen Urine Methadone Screen Acetaminophen Ur Barbiturates Screen Ur Tricyclics Screen Ur Amphetamines Screen U Benzodiazepines Scrn Urine Cocaine Screen Ur THC Screen COVID-19 Source SARS-CoV-2 (PCR) Add-On Test Request 04/26/22 05:32 WBC RBC Hgb Hct MCV MCH MCHC RDW Plt Count MPV Immature Gran % Neutrophils % Band Neutrophils % Lymphocytes % Atypical Lymphs % Monocytes % Eosinophils % Basophils % Metamyelocytes % Myelocytes % Nucleated RBC % Absolute Neutrophils Absolute Lymphocytes Absolute Monocytes Absolute Eosinophils Absolute Basophils RBC Morphology Polychromasia PT INR APTT D-Dimer Sodium Potassium Chloride Carbon Dioxide Anion Gap BUN Creatinine Est GFR (CKD-EPI 2020) Glucose Calcium Magnesium Total Bilirubin Conjugated Bilirubin AST ALT Alkaline Phosphatase Ammonia 46 H Troponin I NT-Pro-B Natriuret Pep Total Protein Albumin Procalcitonin TSH Free T4 Urine Color Urine Clarity Urine pH Ur Specific [place] Urine Protein Urine Ketones Urine Blood Urine Nitrite Urine Bilirubin Urine Urobilinogen Ur Leukocyte Esterase Urine Glucose Urine Opiates Screen Urine Methadone Screen Acetaminophen Ur Barbiturates Screen Ur Tricyclics Screen Ur Amphetamines Screen U Benzodiazepines Scrn Urine Cocaine Screen Ur THC Screen COVID-19 Source SARS-CoV-2 (PCR) Add-On Test Request Documented by User: Marcial Ruiz MD 04/26/22 15:03 Assessment and Plan Assessment and plan (1) H/O alcohol abuse: Status: Chronic (2) Elevated liver function tests: Status: Acute Assessment and plan: Patient denies having abdominal pain. Abdominal exam was unremarkable. WBC WNL, however alkaline phosphatase and bilirubin are elevated. Low suspicion for cholecystitis at this time, however will order abdominal US for further evaluation given elevated lab values. Clinical exam is not consistent with acute cholecystitis. Furthermore, the ultrasound is very reassuring and does not show any ultrasonographic features of cholecystitis. Incidentally, pathology report from his colonoscopy resulted today. He had 3 tubular adenomas. The largest was approximately 1 cm. He will need a follow-up colonoscopy in 5 years. Interestingly, his CEA level was elevated during his last stay. Based on his liver function test, and imaging on the CAT scan, I suspect the elevated CEA as a result of his cirrhosis. (3) Abnormal LFTs: Status: Acute History of Present Illness History of Present Illness Chief Complaint: Shortness of breath Review of Systems Constitutional Constitutional: Reports fatigue, Reports lethargy and Reports poor appetite Eyes Eyes: Reports system reviewed and no additional complaints, except as documented ENT Ears, Nose, Mouth, and Throat: Reports system reviewed and no additional complaints, except as documented Cardiovascular Cardiovascular: Reports rapid heart rate, Reports irregular heart rhythm and Reports dyspnea Respiratory Respiratory: Denies chest congestion, Denies cough, Denies pain on inspiration and Reports dyspnea Gastrointestinal Gastrointestinal: Denies abdominal pain, Denies belching and Reports hematochezia (This occurred last week, after his colonoscopy, but has since resolved.) Genitourinary Genitourinary: Reports system reviewed and no additional complaints, except as documented Musculoskeletal Musculoskeletal: Reports muscle weakness Neurologic Neurologic: Reports system reviewed and no additional complaints, except as documented Psychiatric Psychiatric: Reports anxiety and Reports depression Endocrine Endocrine: Reports fatigue Hematologic/Lymphatic Hematologic/Lymphatic: Denies easy bleeding and Denies easy bruising PFSH All Active Problems Black stools (Acute) Disorientation, unspecified (Acute) H/O alcohol abuse (Chronic) HOME (acute kidney injury) (Acute) Elevated liver function tests (Acute) Acute dyspnea (Acute) Elevated d-dimer (Acute) Abnormal LFTs (Acute) Anasarca (Acute) Atrial fibrillation with rapid ventricular response (Acute) Acute hypokalemia (Acute) Colonoscopy causing post-procedural bleeding (Acute) Aortic atherosclerosis (Acute) ANGUIANO (nonalcoholic steatohepatitis) (Acute) Colonic mass (Acute) Hyponatremia (Acute) Discharge planning issues (Acute) DVT prophylaxis (Acute) CAP (community acquired pneumonia) (Acute) Pulmonary fibrosis (Chronic) Sepsis (Acute) Alcohol abuse (Chronic) Hypertension (Chronic) Atrial fibrillation (Chronic) Pneumonia (Acute) Medical History Tobacco abuse, in remission Surgical History Hx of appendectomy S/P colonoscopy with polypectomy S/P surgical manipulation of ankle joint Family History Paternal Grandmother Diabetes Uncle Cancer patient does not know what type Social History Smoking/Tobacco Use Status: Former Tobacco Use Quit Date: 04/28/16 Pack-years: 150 Tobacco: How many years used: 50 Smoking risk assessment performed?: Yes Alcohol Intake: current Alcohol Intake frequency: 3 or more drinks per day Alcohol type: beer Substance use type: marijuana Do you feel safe at home: Yes Do you feel safe in your relationship?: Yes Exam Eyes General: appearance normal, both eyes and all related structures Conjunctivae: conjunctivae normal Sclera: sclerae normal Neck Neck: normal visual inspection, full ROM and no lymphadenopathy Cardio Jugular venous pressure: no JVD Rate: tachycardic Rhythm: abnormal rhythm GI Auscultation: normal bowel sounds Other: His abdomen is soft and nondistended. He has no tenderness in the right upper quadrant. Skin General skin exam: normal turgor Neuro General: patient alert, patient awake and patient oriented x3 Cognition: normal cognition Extrem Right lower extremity: no edema Left lower extremity: no edema Results Labs Result diagrams: 04/26/22 05:32 04/26/22 05:32
[2022-04-26] MEDS: Levalbuterol 1.25 MG/3 ML UPD VIAL UPD ×3 (08:11→23:32)
[2022-04-26] MEDS: Ipratropium 0.5 MG/2.5 ML UPD VIAL UPD ×4 (08:12→19:57)
--- NOTE | 2022-04-26 08:19 | NUR.NOTE ---
Blood cultures are drawn. Respiratory therapist givens respiratory treatment.Nursing Note:
[2022-04-26] MEDS: metroNIDAZOLE 500 MG/100 ML BAG 100 MG IVPB ×2 (08:27→17:43)
[2022-04-26] MEDS: Atorvastatin 20 MG TAB PO (08:50)
[2022-04-26] MEDS: Aspirin 81 MG CHEW PO (08:50)
[2022-04-26] MEDS: Docusate Sodium 100 MG CAP PO (08:51)
[2022-04-26] MEDS: Multivitamin TAB 1 TAB PO (08:51)
[2022-04-26] MEDS: Lactulose 20 GM/30 ML CUP PO ×2 (08:51→18:56)
[2022-04-26] MEDS: Pantoprazole 40 MG TABCR PO (08:51)
[2022-04-26] MEDS: Tiotropium/Olodaterol 10 PUFF INHALER 2 PUFF IH (09:11)
--- NOTE | 2022-04-26 09:14 | NUR.NOTE ---
MD advised of low systolic BP in the 80's. MD to hold morning atenolol. Ultrasound of bilateral legs and abdomen commences in patient room.Nursing Note:
--- NOTE | 2022-04-26 09:18 | NUR.NOTE ---
RN calls pharmacy to order next bag of Diltiazem. RN calls lab to remind it to draw APTT now.Nursing Note:
[2022-04-26] MEDS: cefTRIAXone 2 GM/50 ML BAG IVPB (09:23)
--- NOTE | 2022-04-26 09:30 | NUR.NOTE ---
Nursing Note: communications technician arrives and attempts to draw blood while ultrasound of abdoment is in process. Dr. Shoemaekr visits patient.
--- NOTE | 2022-04-26 09:31 | NUR.NOTE ---
Dr. Shoemaker telltrinity MD to hold morning atenolol dose.Nursing Note:
[2022-04-26 10:00] LABS: PTT Activated 68.8 sec (21.0-27.5)
--- NOTE | 2022-04-26 10:16 | PGE_ITS ---
Date of Service Date of service: 04/26/22 Time of Service: 10:17 Assessment and Plan Assessment and plan (1) Atrial fibrillation with rapid ventricular response: Status: Acute Assessment and plan: Titrate diltiazem drip initiate oral diltiazem continue heparin drip for anticoagulation. Critical care time spent interviewing and examining the patient, reviewing studies, discussing case with patient's nurse and consulting physicians was 45 minutes (2) Acute CHF: Status: Ruled-out Assessment and plan: Continued need for ICU care while he is on a Cardizem drip. I have started oral diltiazem. His propranolol had to be held this morning due to low blood pressure. Continue anticoagulation with heparin and transition over to an oral D.O.A.C. Last echocardiogram was performed on 04/16/2022 showed normal left ventricular systolic function. Normal left ventricular wall thickness and chamber size with an EF of 60% with no wall motion abnormalities. RV size and function was normal. Mild aortic stenosis. Trace mitral vegetation. Trace to mild tricuspid regurgitation. Although his parameters on his last echocardiogram did not demonstrate diastolic dysfunction I suspect he probably has some diastolic dysfunction that has been exacerbated by his rapid atrial fibrillation. Furthermore he probably has underlying pulmonary hypertension although his last echo could not estimate his RVSP. Qualifiers: Heart failure type: right-sided Qualified Code(s): I50.811 - Acute right heart failure (3) Anasarca: Status: Acute Assessment and plan: Suspect the patient has underlying cirrhosis. Restrict sodium in diet. Diurese as BPs permit. (4) COPD (chronic obstructive pulmonary disease): Status: Suspected Assessment and plan: Continue as needed beta agonist bronchodilators. I have not put him on scheduled doses due to his tachycardia. His complaints of increased cough are suspicious for COPD exacerbation. Patient was empirically started on antibiotics for possible cholecystitis including Rocephin and Flagyl. In light of his abdominal ultrasound findings and Dr. Ruiz's impression this is not acute cholecystitis think we can discontinue the Flagyl but continue the Rocephin and add doxycycline to his regimen for COPD exacerbation. We will attempt to get sputum culture. I will also order urine strep and Legionella antigen. Check sputum for mycoplasma as well as routine culture. (5) Pulmonary fibrosis: Status: Chronic Assessment and plan: As above. Not requiring O2. (6) Abnormal LFTs: Status: Acute Assessment and plan: Suspect that this is due to congestive hepatopathy/gallbladder wall edema. Check hepatitis studies. C/s general surgery. Obtain procalcitonin. (7) Elevated d-dimer: Status: Acute Assessment and plan: OBtain a VQ scan in am. Empiric heparin gtt. (8) HOME (acute kidney injury): Status: Acute Assessment and plan: CT w/o evidence of obstructive uropathy. Suspect hypoperfusion from rapid Afib. However, urinary retention is also possible. Obtain bladder scans. Control HR. Obtain UA, UDS (9) H/O alcohol abuse: Status: Chronic Assessment and plan: Give IV thiamine given the patient's reports of episodes of disorientation. (10) Disorientation, unspecified: Status: Acute Assessment and plan: Not present during the exam today, but is being described by the patient himself. Check CT head, ammonia. Start IV thiamine. (11) Black stools: Status: Acute Assessment and plan: Monitor his stools and his H&H while on heparin drip. Per his nurse stool was Hemoccult negative this morning. (12) Discharge planning issues: Status: Acute Assessment and plan: DNR/DNI as per Dr. Rodriguez's conversation with the patient (13) DVT prophylaxis: Status: Acute Assessment and plan: ON therapeutic heparin gtt. Total Critical Care Time 45 minutes. Subjective Subjective Interval history since last seen: 71 yr old male w/ hx of COPD and pulmonary fibrosis not on supplemental oxygen, atrial fibrillation and HTN and alcohol abuse who was [facility] for large bowel obstruction which responded to enemes then had a c-scope which revealed 3 polyps that were removed (04/18/22; pathology shows tubular adenoma. He returned to the ED on same day as discharge d/t rectal bleeding. Since returning home he presented last night w/ increasing dypsnea, cough mildly productive and subjective fevers. No associated abdominal pain. He reportedly has had black stools, although his stool tested heme negative this morning per his nurse. In the ER his afib was treated w/ boluses of dilitiazem 10 mg x 2 doses and metoprolol 5 mg before starting on diltiazem drip. His troponin I were normal times two sets, however pro-BNP was high at 19,000. CT scan of the abdomen and pelvis demostrated the following:Hepatomegaly with heterogeneous echotexture and small amount of surrounding ascites consistent with cirrhosis. Gallbladder is mildly contracted with stone faintly seen in the dependent portion with no biliary ductal dilatation. Normal pancreas and spleen. Normal kidneys. Peritoneal cavity with small amount of ascites around liver and spleen. Labs on admission as well as repeat labs this morning showed no leukocytosis. Chemistry panel demonstrated azotemia with a BUN of 60 creatinine 2.3 with elevated transaminases with an AST of 603, ALT 318 alkaline phosphatase 778 with an ammonia level 46, total bilirubin 2.9 with direct bilirubin 2.2. Albumin is low at 2.2 as procalcitonin level is high at 8.4. D-dimer was elevated at greater than 7500. Patient was started on heparin drip for his atrial fibrillation as well as possibility of thromboembolic disease. Because of his azotemia CTA cannot be performed. Venous duplex of his legs was done this morning and showed no DVT. Abdominal ultrasound was also performed showed enlarged cirrhotic appearing liver with small amount of surrounding ascites and a contracted gallbladder with stones but no acute cholecystitis. Patient was empirically started on Rocephin and Flagyl for possibility of cholecystitis prior to obtaining the abdominal ultrasound. Exam Narrative Exam Narrative: Elderly white male lying in bed no acute respiratory distress denies any abdominal pain or chest pain. Lungs with diffuse bilateral rales and expiratory wheezes Heart is irregularly irregular and tachycardic in the 120s Abdomen is soft nondistended nontender normal bowel sounds he has palpable hepatomegaly. Abdominal wall without striae or caput medusa Lower extremities with 1+ pitting edema of his ankles and feet and lower tibia. Objective Last Vital Signs Temp 36.3 C L 04/26/22 09:05 Pulse 109 H 04/26/22 09:05 Resp 19 04/26/22 09:05 BP 95/76 L 04/26/22 09:05 Pulse Ox 97 04/26/22 09:05 Laboratory Results - last 24 hr 04/25/22 04/25/22 04/25/22 15:07 15:07 15:07 WBC 5.71 RBC 4.13 L Hgb 12.7 L Hct 38.5 L MCV 93 MCH 30.8 MCHC 33.0 RDW 14.1 Plt Count 154 MPV 9.5 Immature Gran % 0.0 Neutrophils % 58.0 Band Neutrophils % 5 Lymphocytes % 20.0 Atypical Lymphs % 13 Monocytes % 4.0 Eosinophils % 0.0 Basophils % 0.0 Metamyelocytes % Myelocytes % Nucleated RBC % 4.0 H Absolute Neutrophils 3.60 Absolute Lymphocytes 1.88 Absolute Monocytes 0.23 Absolute Eosinophils 0.00 Absolute Basophils 0.00 RBC Morphology Normal Polychromasia PT INR APTT D-Dimer > 7500 H Sodium 138 Potassium 4.6 Chloride 102 Carbon Dioxide 26.8 Anion Gap 9.2 BUN 50 H Creatinine 2.1 H Est GFR (CKD-EPI 2020) 32.83 Glucose 110 H Calcium 9.3 Magnesium 2.3 Total Bilirubin 2.8 H Conjugated Bilirubin AST 591 H ALT 293 H Alkaline Phosphatase 882 H Ammonia Troponin I 56 NT-Pro-B Natriuret Pep Total Protein 6.9 Albumin 2.6 L Procalcitonin TSH Free T4 Urine Color Urine Clarity Urine pH Ur Specific [place] Urine Protein Urine Ketones Urine Blood Urine Nitrite Urine Bilirubin Urine Urobilinogen Ur Leukocyte Esterase Urine Glucose Urine Opiates Screen Urine Methadone Screen Acetaminophen Ur Barbiturates Screen Ur Tricyclics Screen Ur Amphetamines Screen U Benzodiazepines Scrn Urine Cocaine Screen Ur THC Screen COVID-19 Source SARS-CoV-2 (PCR) Add-On Test Request 04/25/22 04/25/22 04/25/22 15:07 17:14 17:59 WBC RBC Hgb Hct MCV MCH MCHC RDW Plt Count MPV Immature Gran % Neutrophils % Band Neutrophils % Lymphocytes % Atypical Lymphs % Monocytes % Eosinophils % Basophils % Metamyelocytes % Myelocytes % Nucleated RBC % Absolute Neutrophils Absolute Lymphocytes Absolute Monocytes Absolute Eosinophils Absolute Basophils RBC Morphology Polychromasia PT 12.2 H INR 1.2 H APTT 21.0 D-Dimer Sodium Potassium Chloride Carbon Dioxide Anion Gap BUN Creatinine Est GFR (CKD-EPI 2020) Glucose Calcium Magnesium Total Bilirubin Conjugated Bilirubin AST ALT Alkaline Phosphatase Ammonia Troponin I < 50 NT-Pro-B Natriuret Pep 90563 H Total Protein Albumin Procalcitonin TSH Free T4 Urine Color Urine Clarity Urine pH Ur Specific [place] Urine Protein Urine Ketones Urine Blood Urine Nitrite Urine Bilirubin Urine Urobilinogen Ur Leukocyte Esterase Urine Glucose Urine Opiates Screen Urine Methadone Screen Acetaminophen Ur Barbiturates Screen Ur Tricyclics Screen Ur Amphetamines Screen U Benzodiazepines Scrn Urine Cocaine Screen Ur THC Screen COVID-19 Source SARS-CoV-2 (PCR) Add-On Test Request 04/25/22 04/25/22 04/25/22 18:32 18:32 18:32 WBC RBC Hgb Hct MCV MCH MCHC RDW Plt Count MPV Immature Gran % Neutrophils % Band Neutrophils % Lymphocytes % Atypical Lymphs % Monocytes % Eosinophils % Basophils % Metamyelocytes % Myelocytes % Nucleated RBC % Absolute Neutrophils Absolute Lymphocytes Absolute Monocytes Absolute Eosinophils Absolute Basophils RBC Morphology Polychromasia PT INR APTT D-Dimer Sodium 139 Potassium 4.8 Chloride 103 Carbon Dioxide 25.9 Anion Gap 10.1 BUN 50 H Creatinine 2.1 H Est GFR (CKD-EPI 2020) 32.83 Glucose 103 Calcium 8.9 Magnesium Total Bilirubin Conjugated Bilirubin AST ALT Alkaline Phosphatase Ammonia Troponin I NT-Pro-B Natriuret Pep Total Protein Albumin Procalcitonin TSH Free T4 Urine Color Urine Clarity Urine pH Ur Specific [place] Urine Protein Urine Ketones Urine Blood Urine Nitrite Urine Bilirubin Urine Urobilinogen Ur Leukocyte Esterase Urine Glucose Urine Opiates Screen Urine Methadone Screen Acetaminophen Cancelled < 2 Ur Barbiturates Screen Ur Tricyclics Screen Ur Amphetamines Screen U Benzodiazepines Scrn Urine Cocaine Screen Ur THC Screen COVID-19 Source SARS-CoV-2 (PCR) Add-On Test Request 04/25/22 04/25/22 04/25/22 18:32 18:32 19:50 WBC RBC Hgb Hct MCV MCH MCHC RDW Plt Count MPV Immature Gran % Neutrophils % Band Neutrophils % Lymphocytes % Atypical Lymphs % Monocytes % Eosinophils % Basophils % Metamyelocytes % Myelocytes % Nucleated RBC % Absolute Neutrophils Absolute Lymphocytes Absolute Monocytes Absolute Eosinophils Absolute Basophils RBC Morphology Polychromasia PT INR APTT D-Dimer Sodium Potassium Chloride Carbon Dioxide Anion Gap BUN Creatinine Est GFR (CKD-EPI 2020) Glucose Calcium Magnesium Total Bilirubin Conjugated Bilirubin AST ALT Alkaline Phosphatase Ammonia Troponin I NT-Pro-B Natriuret Pep Total Protein Albumin Procalcitonin 8.4 TSH 0.51 Free T4 1.29 Urine Color Urine Clarity Urine pH Ur Specific [place] Urine Protein Urine Ketones Urine Blood Urine Nitrite Urine Bilirubin Urine Urobilinogen Ur Leukocyte Esterase Urine Glucose Urine Opiates Screen Urine Methadone Screen Acetaminophen Ur Barbiturates Screen Ur Tricyclics Screen Ur Amphetamines Screen U Benzodiazepines Scrn Urine Cocaine Screen Ur THC Screen COVID-19 Source Nasal/Nares SARS-CoV-2 (PCR) Negative Add-On Test Request 04/25/22 04/26/22 04/26/22 22:02 00:45 00:45 WBC RBC Hgb Hct MCV MCH MCHC RDW Plt Count MPV Immature Gran % Neutrophils % Band Neutrophils % Lymphocytes % Atypical Lymphs % Monocytes % Eosinophils % Basophils % Metamyelocytes % Myelocytes % Nucleated RBC % Absolute Neutrophils Absolute Lymphocytes Absolute Monocytes Absolute Eosinophils Absolute Basophils RBC Morphology Polychromasia PT INR APTT D-Dimer Sodium Potassium Chloride Carbon Dioxide Anion Gap BUN Creatinine Est GFR (CKD-EPI 2020) Glucose Calcium Magnesium Total Bilirubin Conjugated Bilirubin AST ALT Alkaline Phosphatase Ammonia Troponin I NT-Pro-B Natriuret Pep Total Protein Albumin Procalcitonin TSH Free T4 Urine Color Yellow Urine Clarity Clear Urine pH 5.5 Ur Specific [place] 1.020 Urine Protein Negative Urine Ketones Negative Urine Blood Negative Urine Nitrite Negative Urine Bilirubin Negative Urine Urobilinogen 0.2 Ur Leukocyte Esterase Negative Urine Glucose Negative Urine Opiates Screen Negative Urine Methadone Screen Negative Acetaminophen Ur Barbiturates Screen Negative Ur Tricyclics Screen Negative Ur Amphetamines Screen Negative U Benzodiazepines Scrn Negative Urine Cocaine Screen Negative Ur THC Screen Positive A COVID-19 Source SARS-CoV-2 (PCR) Add-On Test Request DONE 04/26/22 04/26/22 04/26/22 02:20 05:32 05:32 WBC 5.78 RBC 3.71 L Hgb 11.5 L Hct 35.3 L MCV 95 MCH 31.0 MCHC 32.6 RDW 14.3 H Plt Count 138 MPV 10.4 Immature Gran % 0.0 Neutrophils % 70.0 Band Neutrophils % 6 Lymphocytes % 15.0 Atypical Lymphs % 1 Monocytes % 3.0 Eosinophils % 0.0 Basophils % 1.0 Metamyelocytes % 3 Myelocytes % 1 Nucleated RBC % 5.0 H Absolute Neutrophils 4.39 Absolute Lymphocytes 0.92 L Absolute Monocytes 0.17 Absolute Eosinophils 0.00 Absolute Basophils 0.06 RBC Morphology See Below Polychromasia Present PT INR APTT 73.1 H D-Dimer Sodium 137 Potassium 5.0 Chloride 103 Carbon Dioxide 18.3 L Anion Gap 15.7 H BUN 60 H Creatinine 2.3 H Est GFR (CKD-EPI 2020) 29.43 Glucose 119 H Calcium 8.4 L Magnesium 2.3 Total Bilirubin 2.9 H Conjugated Bilirubin 2.2 H AST 603 H ALT 318 H Alkaline Phosphatase 778 H Ammonia Troponin I NT-Pro-B Natriuret Pep Total Protein 6.1 L Albumin 2.2 L Procalcitonin TSH 0.42 Free T4 Urine Color Urine Clarity Urine pH Ur Specific [place] Urine Protein Urine Ketones Urine Blood Urine Nitrite Urine Bilirubin Urine Urobilinogen Ur Leukocyte Esterase Urine Glucose Urine Opiates Screen Urine Methadone Screen Acetaminophen Ur Barbiturates Screen Ur Tricyclics Screen Ur Amphetamines Screen U Benzodiazepines Scrn Urine Cocaine Screen Ur THC Screen COVID-19 Source SARS-CoV-2 (PCR) Add-On Test Request 04/26/22 04/26/22 05:32 09:30 WBC RBC Hgb Hct MCV MCH MCHC RDW Plt Count MPV Immature Gran % Neutrophils % Band Neutrophils % Lymphocytes % Atypical Lymphs % Monocytes % Eosinophils % Basophils % Metamyelocytes % Myelocytes % Nucleated RBC % Absolute Neutrophils Absolute Lymphocytes Absolute Monocytes Absolute Eosinophils Absolute Basophils RBC Morphology Polychromasia PT INR APTT 68.8 H D-Dimer Sodium Potassium Chloride Carbon Dioxide Anion Gap BUN Creatinine Est GFR (CKD-EPI 2020) Glucose Calcium Magnesium Total Bilirubin Conjugated Bilirubin AST ALT Alkaline Phosphatase Ammonia 46 H Troponin I NT-Pro-B Natriuret Pep Total Protein Albumin Procalcitonin TSH Free T4 Urine Color Urine Clarity Urine pH Ur Specific [place] Urine Protein Urine Ketones Urine Blood Urine Nitrite Urine Bilirubin Urine Urobilinogen Ur Leukocyte Esterase Urine Glucose Urine Opiates Screen Urine Methadone Screen Acetaminophen Ur Barbiturates Screen Ur Tricyclics Screen Ur Amphetamines Screen U Benzodiazepines Scrn Urine Cocaine Screen Ur THC Screen COVID-19 Source SARS-CoV-2 (PCR) Add-On Test Request
--- NOTE | 2022-04-26 10:22 | NUR.NOTE ---
APTT is 68.8 and therapeutic. Next APTT will be taken at 16:30.Nursing Note:
--- NOTE | 2022-04-26 11:01 | INITIAL_ITS ---
- If Service Date Differs Date of service: 04/26/22 Time of Service: 15:46 Care Management Initial Assess REASON FOR HOSPITALIZATION:: Rapid Afib, CHF, HOME, Cholecystitis PAST MEDICAL HISTORY/PAST SURGICAL HISTORY:: Medical History (Updated 04/26/22 @ 00:39 by Ghislaine Rodriguez MD). Tobacco abuse, in remission. Surgical History (Updated 04/25/22 @ 22:34 by Ghislaine Rodriguez MD). Hx of appendectomy. S/P colonoscopy with polypectomy. S/P surgical manipulation of ankle joint PREVIOUS FUNCTIONAL STATUS/SOCIAL/FAMILY SUPPORTS:: Alfonzo [address] [facility]. His apartment is near the [facility] office, which he recieves support from. 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 He has friends and neighbors who check in on him as well as s/o, Crystal, brother, Arnulfo, and daughter, Annie. Ollie, [facility], checks in on him as well. CURRENT FUNCTIONAL STATUS:: Per process engineering technician, Alfonzo has garbled speech attributed to lack of teeth; no dentures. Reports he stopped drinking four weeks ago. ADVANCE DIRECTIVES:: None on file. Has patient been provided with info about the portal/API?: Yes Did the patient sign up for the portal?: No CODE STATUS:: DNR/DNI INSURANCE COVERAGE / FINANCIAL ISSUES:: Medicaid. Medicare CURRENT HOME/COMMUNITY SERVICES/EQUIPMENT:: [facility] PRIMARY CARE PHYSICIAN:: Ed Wray POTENTIAL DISCHARGE NEEDS:: Follow up appointments. PATIENT/FAMILY EDUCATION NEEDS:: Review discharge instructions, discuss [employer]. ANTICIPATED BARRIERS TO DISCHARGE:: None identified. TRANSPORTATION:: Alfonzo will transport via private vehicle with his daughter. PLAN:: Alfonzo will discharge to home with no additional services anticipated at this time. He will follow up with his community providers and plan of care as prescribed. He will transport via private vehicle with his daughter, Annie.
[2022-04-26] MEDS: dilTIAZem 30 MG TAB PO ×3 (11:17→23:32)
--- NOTE | 2022-04-26 11:24 | NUR.NOTE ---
Yellow colored stockings applied to patient's feet.Nursing Note:
[2022-04-26] MEDS: Furosemide 40 MG/4 ML VIAL IVP ×2 (11:34→17:25)
[2022-04-26] MEDS: Spironolactone 25 MG TAB 12.5 MG PO (11:41)
--- NOTE | 2022-04-26 11:59 | NUR.NOTE ---
Nursing Note: RN shaves patient and gives him a shampoo.
--- NOTE | 2022-04-26 13:19 | NUR.NOTE ---
Friend and brother visited on this shift.Nursing Note:
--- NOTE | 2022-04-26 13:50 | DI.CT_ITS ---
Exam(s) CT HEAD WO EXAM: CT HEAD WO CLINICAL HISTORY: frequent episodes of disorientation. TECHNIQUE: Imaging Protocol: Axial computed tomography images with coronal and sagittal reformatted images were created and reviewed COMPARISON: No exams were available for comparison FINDINGS: Ventricles and Extra axial spaces: Normal in size and morphology for the patient's age. Hemorrhage: None. Cerebral parenchyma: Moderate atrophy. Mild white matter changes small vessel disease. Midline shift: None. Brainstem/Cerebellum: Normal. Calvarium: Normal. Visualized Paranasal sinuses/Mastoids: Clear. Soft Tissues: Unremarkable. IMPRESSION: No acute intracranial process. RADIATION DOSE DELIVERED: 735.11mGy.cm Total DLP DATA REPOSITORY: All CT scans at this facility are submitted to the National Radiology Data Registry (NRDR) Dose Index Registry (DIR) with the [employer] ([employer]). RADIATION OPTIMIZATION: All CT scans at this facility use at least one of these dose optimization te chniques: automated exposure control; mA and/or kV adjustment per patient size (includes targeted exa ms where dose is matched to clinical indication); or iterative reconstruction.
--- NOTE | 2022-04-26 15:05 | NUR.NOTE ---
RN returns with patient from having a CT performed and VQ scan. Patient tolerated both procedures well.Nursing Note:
[2022-04-26 16:49] LABS: PTT Activated 73.9 sec (21.0-27.5)
[2022-04-26] MEDS: Enoxaparin 80 MG/0.8 ML SYR 70 MG SC (17:44)
[2022-04-26] MEDS: Mylanta Suspension 30 ML CUP PO (18:55)
[2022-04-26] MEDS: Normal Saline Flush 10 ML SYR IVP ×2 (21:26)
[2022-04-26] MEDS: LORazepam 2 MG/ML VIAL 0.5 MG IVP (21:26)
[2022-04-26] MEDS: LORazepam 0.5 MG TAB (23:33)
[2022-04-27] VITALS (66 sets, daily range): BP systolic 78–106; BP diastolic 57–83; PULSE 70–150; RESP 1–33; TEMP 36.1–36.8; O2SAT 91–99
[2022-04-27] MEDS: Normal Saline Flush 10 ML SYR IVP ×3 (00:42→08:45)
[2022-04-27] MEDS: THIAMINE 500 MG in Normal Saline 100 ML 200 MG IVPB ×3 (01:42→18:01)
[2022-04-27] MEDS: Normal Saline 500 ML 30 ML IV (01:47)
--- NOTE | 2022-04-27 04:11 | NUR.NOTE ---
Nursing Note: Patient with increasing tachypnea and decreased oxygen saturations with activity to bedside commode. Placed on oxygen via nasal cannula while OOB. Patient pulls oxygen off while in bed. Oriented to person only.
[2022-04-27] MEDS: Enoxaparin 80 MG/0.8 ML SYR 70 MG SC (05:41)
[2022-04-27 05:45] LABS: Abs Immature Grans 0.86 10^3/uL (0.0-0.06); Absolute Monocyte Count 0.43 10^3/uL (0.1-0.8); HCT 35.6 % (40.0-50.0); HGB 11.6 g/dL (13.5-17.5); MCH 31.2 pg (27.0-33.0); MCHC 32.6 % (32.0-36.0); MCV 96 fL (80-95); MPV 10.8 fL (8.0-11.0); Platelet Count 150 10^3/uL (130-400); RBC 3.72 10^6/uL (4.36-5.78); RDW 14.8 % (11.8-14.1); RDW-SD 51.2 fL; WBC 7.12 10^3/uL (4.4-10.8)
[2022-04-27 06:07] LABS: ALT 446 U/L (16-63); Albumin 2.4 g/dL (3.4-5.0); Alkaline Phosphatase 760 U/L (46-116); Anion Gap 22.2 mmol/L (3-11); Bilirubin, Total 2.8 mg/dL (0.2-1.0); C-Reactive Protein 8.73 mg/dL (0.0-0.3); CO2 13.8 mmol/L (21.0-32.0); CREATININE 3.2 mg/dL (0.70-1.30); Calcium 8.7 mg/dL (8.5-10.1); Chloride 104 mmol/L (98-107); Glucose 131 mg/dL (74-106); Potassium 4.9 mmol/L (3.5-5.1); Sodium 140 mmol/L (136-145); Total Protein 6.3 g/dL (6.4-8.2)
[2022-04-27 06:11] LABS: Absolute Basophil Count 0.21 10^3/uL (0.0-0.2); Absolute Eosinophil Count 0.14 10^3/uL (0.0-0.7); Absolute Lymphocyte Count 1.07 10^3/uL (1.2-3.4); Absolute Neutrophil Count 4.84 10^3/uL (1.2-6.7); Atypical Lymphocytes % 1; Diff Comment Manual Differential; Metamyelocytes % 2; Myelocytes % 2; Promyelocytes % 2; RBC Morphology Normal
--- NOTE | 2022-04-27 06:14 | NUR.NOTE ---
Nursing Note: Bladder scan results on patient at midnight and 0600. Confirmed Diltiazem drip and Heparin drip off. Patient received Ativan x1 @ 2345. CIWA as documented. Discussed no Troponin labs orderer on patient. Heart rate 120's to 130's overnight with soft BP in the 90's SBP. Crackles bilateral in lungs, up every 2 hours to have BM without results. Abdomen is firm/tender and distended. Patient has not voided this shift. Dr Keith Nguyen was informed of this information.
[2022-04-27 06:17] LABS: AST 1026 U/L (15-37)
[2022-04-27 06:20] LABS: BUN 84 mg/dL (7-18)
[2022-04-27] MEDS: Ipratropium 0.5 MG/2.5 ML UPD VIAL UPD ×4 (07:41→20:13)
[2022-04-27] MEDS: Levalbuterol 1.25 MG/3 ML UPD VIAL UPD ×2 (07:41→12:25)
[2022-04-27] MEDS: Tiotropium/Olodaterol 10 PUFF INHALER 2 PUFF IH (07:41)
--- NOTE | 2022-04-27 07:52 | NUR.NOTE ---
Urine sample delivered to lab by RN.Nursing Note:
[2022-04-27] MEDS: Normal Saline 500 ML 250 ML IV (08:10)
[2022-04-27] MEDS: cefTRIAXone 2 GM/50 ML BAG IVPB (08:16)
[2022-04-27] MEDS: Atenolol 50 MG TAB PO (08:40)
[2022-04-27] MEDS: Atorvastatin 20 MG TAB PO (08:41)
[2022-04-27] MEDS: Aspirin 81 MG CHEW PO (08:41)
[2022-04-27] MEDS: dilTIAZem 60 MG TAB PO ×2 (08:41→16:23)
[2022-04-27] MEDS: Multivitamin TAB 1 TAB PO (08:42)
[2022-04-27] MEDS: Spironolactone 25 MG TAB 12.5 MG PO (08:42)
[2022-04-27] MEDS: Pantoprazole 40 MG TABCR PO (08:42)
--- NOTE | 2022-04-27 09:17 | W.PM.PROGNOT ---
Date of Service Date of service: 04/27/22 Time of Service: 09:17 Assessment and Plan Assessment and plan (1) Atrial fibrillation with rapid ventricular response: Status: Acute Assessment and plan: resume diltiazem drip and titrate oral diltizem; anticoagulated w/ lovenox but need to reduce to daily given his azotemia. echo was not repeated as this was just done a little over a week ago it does not appear that he has had any ischemic event (negative troponin I x two sets on admission) Critical care time spent interviewing and examining the patient, reviewing studies, discussing case with patient's nurse and consulting physicians was 60 minutes (2) HOME (acute kidney injury): Status: Acute Assessment and plan: Worsening prerenal azotemia BUN is elevated 84 creatinine 3.2. His baseline BUN/creatinine are 19 and 1.2. In spite of the initial impression of CHF with diffuse bilateral B-lines and peripheral edema I think the Pattern is probably secondary to his pulmonary fibrosis the peripheral edema is secondary to his cirrhosis and ascites. It appears he is intravascularly dry as evidenced by rising BUN out of proportion to his creatinine. Diuretics have been discontinued. Patient's been given a bolus of fluid we will put him on a maintenance fluid and monitor his urine output. We will monitor his BMP. (3) Abnormal LFTs: Status: Acute Assessment and plan: hx of ANGUIANO but suspect that he actually has alcoholic cirrhosis. viral hepatitis studies are pending. given his worsening renal function, low BP and low albumen, I will give him albumen along w/ volume replacement. CT of abdomen and pelvis demonstrated increased hepatomegaly and decreased echogenicity compared to prior CT abdomen from 04/15 suggesitve of acute hepatitis. No hepatic masses. No evidence for cholecystitis. Viral hepatitis studies are pending. I will get tick panel and also check autoimmune hepatitis profile as well as iron studies. I will empirically treat his hepatits w/ steroids. Although his Maddrey discriminant factor is only 8, his MELD score is 23 (4) COPD (chronic obstructive pulmonary disease): Status: Suspected Assessment and plan: currently on prn xopenex, not on any maintenacne LAMA or LABA or ICS. Will start w/ Spiriva along w/ the short acting prn use of xopenex (5) Pulmonary fibrosis: Status: Chronic (6) Elevated d-dimer: Status: Acute Assessment and plan: V/Q scan was low probability and his venous US of his legs was neg. for DVT. I suspect that the d-dimer is secondary to his acute hepatic process (7) H/O alcohol abuse: Status: Chronic Assessment and plan: patient has had trasient confusion but seems oriented this morning. He self reported symptoms of feeling of confusion and getting lost. Admisson CT of head was negative for acute pathology. It is not clear that he is in withdrawal from alcohol. He allegedly quit drinking cold turkey 4 weeks prior to admission. (8) Discharge planning issues: Status: Acute (9) DVT prophylaxis: Status: Acute Assessment and plan: on enoxaparin at renal adjusted level (10) Tubular adenoma: Status: Acute Assessment and plan: s/p colonoscopy 04/18 w/ removal of 3 polyps; although he reported black stools on admission he has had no heme positive stools since admission Subjective Subjective Interval history since last seen: Overnight nursing staff reports patient has had some transient confusion. Patient has a history of alcohol abuse is unclear as to when he quit drinking. Last admission H&P it was suggested that he may have quit a few months ago however talk with his family he may still be intermittently drinking. We will start him on CIWA protocol and treated for alcohol withdrawal. Furthermore overnight he has had worsening azotemia for which I discontinued his Lasix and started some IV fluids. We will also start him on some albumin given that his serum albumin level is low and he has cirrhosis. For me this morning the patient seems to be alert and oriented person place time circumstance he knew he was in [facility] and he knows it is March 2022. Denies any pain. He has dyspneic with mild activity and remains in rapid atrial fibrillation with heart rates in the 120s to 140. Apparently his diltiazem drip was discontinued last night for unclear reasons. He has had some borderline blood pressure readings for which they have had D.O.A.C. with hold his oral diltiazem. We will give him some fluid boluses and restart the diltiazem drip and titrate the drip along with oral diltiazem to control his rate. Exam Narrative Exam Narrative: Patient is alert he is oriented person place time and circumstance. HEENT is unremarkable Lungs with diffuse end expiratory wheezes no rhonchi or rales Heart is irregularly irregular and tachycardic with no appreciable murmur rub Abdomen is slightly distended soft and nontender. Nurses report bladder residual of over 300 mL but patient refuses to be catheterized. Patient did successfully sit on the bedside commode and voided. Lower extremities with 1+ pitting edema over the feet ankles and lower tibia Neuro exam grossly intact no asterixis no ataxia Objective Last Vital Signs Temp 36.3 C L 04/27/22 08:03 Pulse 139 H 04/27/22 08:03 Resp 16 04/27/22 08:03 BP 102/83 04/27/22 08:03 Pulse Ox 92 04/27/22 08:03 Laboratory Results - last 24 hr 04/26/22 04/26/22 04/27/22 09:30 16:30 05:25 WBC RBC Hgb Hct MCV MCH MCHC RDW Plt Count MPV Immature Gran % Neutrophils % Lymphocytes % Atypical Lymphs % Monocytes % Eosinophils % Basophils % Metamyelocytes % Myelocytes % Promyelocytes % Nucleated RBC % Absolute Neutrophils Absolute Lymphocytes Absolute Monocytes Absolute Eosinophils Absolute Basophils RBC Morphology APTT 68.8 H 73.9 H Sodium 140 Potassium 4.9 Chloride 104 Carbon Dioxide 13.8 L Anion Gap 22.2 H BUN 84 H* Creatinine 3.2 H D Est GFR (CKD-EPI 2020) 19.80 Glucose 131 H Calcium 8.7 Total Bilirubin 2.8 H AST 1026 H ALT 446 H Alkaline Phosphatase 760 H C-Reactive Protein 8.73 H Total Protein 6.3 L Albumin 2.4 L 04/27/22 05:25 WBC 7.12 RBC 3.72 L Hgb 11.6 L Hct 35.6 L MCV 96 H MCH 31.2 MCHC 32.6 RDW 14.8 H Plt Count 150 MPV 10.8 Immature Gran % See Differential Neutrophils % 68.0 Lymphocytes % 14.0 Atypical Lymphs % 1 Monocytes % 6.0 Eosinophils % 2.0 Basophils % 3.0 Metamyelocytes % 2 Myelocytes % 2 Promyelocytes % 2 Nucleated RBC % 13.0 H Absolute Neutrophils 4.84 Absolute Lymphocytes 1.07 L Absolute Monocytes 0.43 Absolute Eosinophils 0.14 Absolute Basophils 0.21 H RBC Morphology Normal APTT Sodium Potassium Chloride Carbon Dioxide Anion Gap BUN Creatinine Est GFR (CKD-EPI 2020) Glucose Calcium Total Bilirubin AST ALT Alkaline Phosphatase C-Reactive Protein Total Protein Albumin
[2022-04-27] MEDS: dilTIAZem 125 MG in Normal Saline 100 ML 10 MG IV (09:51)
[2022-04-27 10:26] LABS: BE (Venous) -10 mmol/L (-2-3); HCO3 (Venous) 16 mmol/L (23-28); O2 Sat (Venous) 78 %; TCO2 (Venous) 15 mmol/L (24-29); pCO2 (Venous) 33 mmHg (41-51); pO2 (Venous) 49 mmHg
[2022-04-27 10:34] LABS: Lactate 5.9 mmol/L (0.6-1.4)
[2022-04-27 10:40] LABS: Ammonia 37 umol/L (11-32)
[2022-04-27] MEDS: Folic Acid 1 MG TAB PO (10:44)
[2022-04-27 10:54] LABS: Iron 237 ug/dL (65-175)
[2022-04-27] MEDS: predniSONE 20 MG TAB 40 MG PO (10:54)
[2022-04-27 11:03] LABS: Procalcitonin 14.1 ng/mL
[2022-04-27 11:12] LABS: LDH > 4000 U/L (85-227)
[2022-04-27 11:29] LABS: Ferritin > 2000 ng/mL (26-388)
[2022-04-27] MEDS: DOXYCYCLINE 100 MG in Normal Saline 100 ML IVPB ×2 (11:39→23:20)
[2022-04-27] MEDS: ALBUMIN HUMAN 25 GM/100 ML BTL IV (11:39)
[2022-04-27 12:27] LABS: Fibrinogen (Stat) (Littleton) 303 mg/dL (208-434)
[2022-04-27] MEDS: Lactated Ringers 1,000 ML 150 ML IV ×2 (12:29→19:15)
[2022-04-27] MEDS: ALBUMIN HUMAN 25 GM/100 ML BTL IVPB (16:24)
[2022-04-27] MEDS: dilTIAZem 25 MG/5 ML VIAL 15 MG IVP (17:58)
[2022-04-27] MEDS: dilTIAZem 125 MG in Normal Saline 100 ML 15 MG IV (18:02)
[2022-04-27] MEDS: Metoprolol 25 MG TAB PO (18:03)
[2022-04-27] MEDS: Protein Nutritional Supplement 16 GM 1 OUNCE PACKET PO (20:12)
[2022-04-27] MEDS: Lactulose 20 GM/30 ML CUP PO (20:13)
[2022-04-28] VITALS (53 sets, daily range): BP systolic 54–129; BP diastolic 19–116; PULSE 51–195; RESP 1–31; TEMP 35.4–35.9; O2SAT 75–98
[2022-04-28] MEDS: Lactated Ringers 1,000 ML 150 ML IV ×2 (01:28→06:21)
[2022-04-28] MEDS: dilTIAZem 125 MG in Normal Saline 100 ML 10 MG IV (01:29)
[2022-04-28] MEDS: THIAMINE 500 MG in Normal Saline 100 ML 200 MG IVPB (01:35)
[2022-04-28] MEDS: ALBUMIN HUMAN 25 GM/100 ML BTL IVPB ×2 (01:36→09:23)
[2022-04-28] MEDS: Levalbuterol 1.25 MG/3 ML UPD VIAL UPD (03:39)
--- NOTE | 2022-04-28 06:27 | NUR.NOTE ---
0445- pt looking increasingly more short of breath, more daryn colored, more accessory muscle use, very restless and more confused. BP very hard to obtain and not accurate?. heart rate vacilating wildly and decreasing to 40 and then to 70 with very deep inverted t waves. access called and asked to get Dr. Nguyen to the icu quickly. oxygen placed on patient, pulled up in bed. diltiazem gtt stopped. Dr. Nguyen here within 5-10 minutes. report given. bladder scan done for 296cc's. arambula placed with about 300cc's of very dark yellow urine. 500cc bolus of LR started. lungs with better air flow. pt had received a xopenex updraft before Dr. Nguyen came. pt had 2 3 diarrhea stools this shift with fresh red blood and this was reported to Dr. Nguyen and asked if he wanted the enoxaparin held this am. patient at this point has started to be less daryn and breathing somewhat better. still confused looking and restless but improved.
--- NOTE | 2022-04-28 06:59 | W.EVENT ---
Date of service: 04/28/22 Time of Service: 05:00 Event Note: This is a 71-year-old gentleman who has had atrial fibrillation with rapid ventricular response but then had low blood pressure readings with systolic below 80 and bradycardia with his heart rate dropping below 60 at time I was called but being in the range of 80-90 at the time I was at bedside. He had been on a diltiazem drip and has been discontinued and he was converted to oral diltiazem with oral metoprolol. These medications were held after midnight because of slow heart rate and low blood pressure. He is on IV fluid resuscitation and is restless and antsy with some consideration of urine retention. During my evaluation the patient did appear to have discomfort to palpation of her suprapubic area but no palpable mass and bladder scan revealed around 300 cc of urine. Quintana catheter was placed and about 300 cc of dark urine did drain. Patient does have a history of alcoholism with probable cirrhosis and ascites. It was determined that he is continuing to be dry and behind on IV fluids with IV fluid boluses given at 250cc and then 500cc fluid boluses and then iv LR rwas continued at 150 cc/hr. Physical exam revealed the patient being slightly sedated with Serax but cooperative and lungs had fair air movement especially on the right compared to left with no focalizing rales or rhonchi and no expiratory wheeze after nebulizer treatment. Nurse did report crackles prior. There was some concern that he may be fluid overloaded which does not appear to be the case. Pulse oximeter on his left thumb with good pulse match did reveal no hypoxemia with pulse oximeter above 90%. Patient was on oxygen supplementation. The patient appeared mottled and ashen to the nurse when I was first called and after evaluation and treatment he appeared more comfortable and more pink. He was less restless with Quintana catheter in place. Acute lab was not performed and review of the chart was done with morning labs to be performed and followed up by the daytime hospitalist. The patient's oral antiarrhythmics would be continued as tolerated. The patient is a DNR/DNI. Time Spent with Patient Time spent in critical care(minutes): 45 Time Spent Included: Coordination of care, Chart review, Documenting critically ill care, Time at immediate bedside and Discussing critically ill care with other medical staff
[2022-04-28 07:01] LABS: ALT 394 U/L (16-63); Albumin 3.3 g/dL (3.4-5.0); Alkaline Phosphatase 582 U/L (46-116); Anion Gap 26.2 mmol/L (3-11); Bilirubin, Direct 2.6 mg/dL (0.0-0.2); Bilirubin, Total 3.3 mg/dL (0.2-1.0); CO2 7.8 mmol/L (21.0-32.0); Calcium 8.4 mg/dL (8.5-10.1); Chloride 104 mmol/L (98-107); Estimated GFR 14.71 (mL/min/1.73m2); Magnesium 2.9 mg/dL (1.8-2.4); Sodium 138 mmol/L (136-145); Total Protein 6.4 g/dL (6.4-8.2)
[2022-04-28 07:09] LABS: AST 900 U/L (15-37); PHOSPHORUS 10.6 mg/dL (2.6-4.7)
[2022-04-28 07:11] LABS: BUN 93 mg/dL (7-18); CREATININE 4.1 mg/dL (0.70-1.30); Glucose 47 mg/dL (74-106); Potassium 6.7 mmol/L (3.5-5.1)
[2022-04-28] MEDS: Dextrose 50%-Water 25 GM/50 ML SYR IVP ×3 (07:15→09:38)
--- NOTE | 2022-04-28 07:15 | RT.EKG_ITS ---
APPROVED REPORT Exam: Resting ECG Reason for Exam: rhythm change Patient Location: I HR:54 bpm ECG Measurements Heart Rate 54 AXIS OH 213 P 82 QRSd 127 QRS 73 QT 553 T -57 QTc 525 Conclusion Sinus rhythm...normal P axis, V-rate 50- 99 Sinus pause...long R-R interval, normal QRSd IVCD, consider atypical RBBB...QRSd>120mS, terminal axis(90,270) T inversions suggest ischemia
--- NOTE | 2022-04-28 07:40 | DI.RAD_ITS ---
Exam(s) XR PORTABLE CHEST AP EXAM: XR PORTABLE CHEST AP CLINICAL HISTORY: dyspnea TECHNIQUE: 2D digital imaging was performed. COMPARISON: CR,XR XR PORTABLE CHEST AP from 04/25/2022 FINDINGS: Multiple leads overlie the chest. LUNGS: Low lung volumes. Fibrotic changes. Basilar infiltrates not excluded. Question of small benita ateral pleural effusions. HEART: Normal size. AORTA: Normal diameter. BONES: Unremarkable for age. Soft tissues: Unremarkable. IMPRESSION: Exam limited by poor pulmonary inflation. There are increased densities at the lung bases which coul d represent atelectasis versus superimposed infiltrates. Question of tiny bilateral pleural effusion s. DATA REPOSITORY: RADIATION DOSE DELIVERED:
[2022-04-28 07:42] LABS: HCO3 (Venous) 6 mmol/L (23-28); O2 Sat (Venous) 78 %; TCO2 (Venous) 6 mmol/L (24-29); pCO2 (Venous) 28 mmHg (41-51); pO2 (Venous) 70 mmHg
[2022-04-28 07:44] LABS: pH (Venous) 6.93 (7.31-7.41)
[2022-04-28 07:53] LABS: HCO3 5 mmol/L (22-26); pCO2 23 mmHg (35-45); pO2 120 mmHg (80-105); sO2 95 % (95-98); tCO2 5 mmol/L (23-27)
[2022-04-28 07:55] LABS: Prothrombin Time 19.5 sec (9.3-11.0)
[2022-04-28 07:56] LABS: FIO2L 5 L; Site Right Brachial
[2022-04-28] MEDS: DEXTROSE 10%-WATER 500 ML 100 ML IV (07:56)
[2022-04-28 07:57] LABS: pH < 7.00 (7.35-7.45)
[2022-04-28] MEDS: Norepinephrine in D5W 8 MG/250 ML BAG 14.288 MG IV (08:16)
[2022-04-28] MEDS: CALCIUM GLUCONATE in NaCl 1 GM/50 ML BAG IVPB (08:19)
[2022-04-28] MEDS: Sodium Bicarbonate 50 MEQ/50 ML SYR IVP (08:21)
[2022-04-28 09:17] LABS: HCT 32.1 % (40.0-50.0); HGB 9.7 g/dL (13.5-17.5); MCH 31.2 pg (27.0-33.0); MCHC 30.2 % (32.0-36.0); MCV 103 fL (80-95); Platelet Count 119 10^3/uL (130-400); RBC 3.11 10^6/uL (4.36-5.78); RDW 15.3 % (11.8-14.1); RDW-SD 57.2 fL; WBC 8.41 10^3/uL (4.4-10.8)
--- NOTE | 2022-04-28 09:19 | W.PM.PROGNOT ---
Date of Service Date of service: 04/28/22 Time of Service: 09:20 Assessment and Plan Assessment and plan (1) Hypotension: Status: Acute Assessment and plan: BP initially responded to iv fluids last night but has continued to be hypotensive requiring vasopressors (norepinephrine and dobutamine). he has a severe lactic acidosis and now has abdominal pain despite arambula catheter being placed last night and his abdomen is distended raising concerns for acute bowel ischemia. I have broadened his antibiotics (cefepime, vancomcyin and flagyl) and we were going to get CT of his abdomen, however, after meeting w/ his brother Adrien Cooper, the patient's girlfriend and the patient's daugher, Annie Sosa, the family had decided that Alfonzo would not want to be intubated and would not want hemodialysis or surgical intervention and they are requesting comfort measures. We are awaiting the other brother to arrive and then will put him on continuous morphine drip. In the interim I am having his nurse give him boluses of morphine Critical care time spent interviewing and examining the patient, reviewing studies, discussing case with patient's nurse and consulting physicians was 120 minutes. Case was discussed w/ GI and CCM at [facility] prior to discussion of goals of care w/ the family. [facility] transfer center was updated on the patient's [employer] status. (2) Lactic acidosis: Status: Acute Assessment and plan: ddx: ischemic bowel, sepsis (3) Abdominal pain: Status: Acute Assessment and plan: as above. I was going to get CT abdomen and pelvis however in light of family decision to not pursue aggressive resuscitation, and to go for comfort measures, I will cancel his CT scan (4) Hyperkalemia: Status: Acute Assessment and plan: treated w/ iv insulin, dextrose, calcium gluconate and albuterol nebulizer (5) HOME (acute kidney injury): Status: Acute Assessment and plan: likely d/t either hepatorenal syndrome or more likely multiorgan failure from ischemic bowel (6) Elevated liver function tests: Status: Acute Assessment and plan: acute liver failure in setting of cirrhosis (7) Atrial fibrillation: Status: Chronic Assessment and plan: afib resolved overnight w/ iv diltiazem, oral diltiazem and BB (8) Cirrhosis: Status: Acute Assessment and plan: secondary to alcohol (9) COPD (chronic obstructive pulmonary disease): Status: Suspected (10) Pulmonary fibrosis: Status: Chronic Subjective Subjective Interval history since last seen: Overnight patient had problems with hypotension and continues to be hypotensive. It appears around 8 PM last night he had soft pressures in the 90s systolic but then began around midnight to 4 AM he had hypotension for which he was given fluid boluses with transient improvement of SBP to 90's. This morning patient is awake but not coherent and not able to have any meaningful conversation with me. He appears mottled and diaphoretic. He does open his eyes to his name and follows simple commmands but when I attempted to have a goals of care conversation w/ him he could not give me any coherent answers. He is having severe lactic acidosis, worsening renal and liver function as well as hyperkalemia. I called his brother Adrien to get some direction as to whether or not Alfonzo would want aggressive treatment and transfer to [facility]. He indicated that he would call their other brother and Annie his daughter. Annie Sosa then called me (her phone is [phone]) and I updated her indicating that I had obtained a phone consult w/ GI and critical medicine from [facility] and shared their concerns that his lactic acidosis may be ischemic bowel and that even w/ aggressive measures such as intubation and hemodialysis he will likely . Annie indicated that she and her brother will come to the hospital but that she feels that her father would not want heroic measures done and would not likely survive the transport. Exam Narrative Exam Narrative: Alfonzo is awake opens his eyes to his name moves all 4 extremities voluntarily follows simple commands but not able to have any coherent conversation with me. GCS 11 /12 (E4, V2, M5 /M6) Patient is diaphoretic mottled tachypneic is not tachycardic his rhythm is sinus bradycardia. Neck veins are distended Lungs w/ scattered expiratory wheezes Heart: bradycardic but regular Abdomen: distended w/ absent bowel sounds and diffuse tenderness Skin: mottled, cool, poor peripheral pulses Neuro: GCS 11/12 as noted above, moves all 4's, opens eyes to his name, attempts to follow commands but not consistently Objective Last Vital Signs Temp 35.9 C L 04/28/22 05:00 Pulse 55 L 04/28/22 04:45 Resp 22 04/28/22 03:05 BP 98/70 L 04/28/22 03:05 Pulse Ox 95 04/28/22 02:01 Laboratory Results - last 24 hr 04/27/22 04/27/22 04/27/22 10:15 10:15 10:15 PT INR Fibrinogen ABG Sample Site ABG pH ABG pCO2 ABG pO2 ABG HCO3 ABG Total CO2 ABG O2 Saturation ABG Base Excess VBG pH 7.30 L VBG pCO2 33 L VBG pO2 49 VBG HCO3 16 L VBG Total CO2 15 L VBG O2 Saturation 78 VBG Base Excess -10 L VBG Lactate 5.9 H* Oxygen Liter Flow Sodium Potassium Chloride Carbon Dioxide Anion Gap BUN Creatinine Est GFR (CKD-EPI 2020) Glucose Calcium Phosphorus Magnesium Iron Ferritin Total Bilirubin Conjugated Bilirubin AST ALT Alkaline Phosphatase Ammonia 37 H Lactate Dehydrogenase Total Protein Albumin Procalcitonin 14.1 04/27/22 04/27/22 04/27/22 10:15 10:15 10:15 PT INR Fibrinogen 303 ABG Sample Site ABG pH ABG pCO2 ABG pO2 ABG HCO3 ABG Total CO2 ABG O2 Saturation ABG Base Excess VBG pH VBG pCO2 VBG pO2 VBG HCO3 VBG Total CO2 VBG O2 Saturation VBG Base Excess VBG Lactate Oxygen Liter Flow Sodium Potassium Chloride Carbon Dioxide Anion Gap BUN Creatinine Est GFR (CKD-EPI 2020) Glucose Calcium Phosphorus Magnesium Iron 237 H Ferritin Total Bilirubin Conjugated Bilirubin AST ALT Alkaline Phosphatase Ammonia Lactate Dehydrogenase > 4000 H Total Protein Albumin Procalcitonin 04/27/22 04/28/22 04/28/22 10:15 06:23 07:35 PT INR Fibrinogen ABG Sample Site ABG pH ABG pCO2 ABG pO2 ABG HCO3 ABG Total CO2 ABG O2 Saturation ABG Base Excess VBG pH VBG pCO2 VBG pO2 VBG HCO3 VBG Total CO2 VBG O2 Saturation VBG Base Excess VBG Lactate 15.0 H* Oxygen Liter Flow Sodium 138 Potassium 6.7 H* D Chloride 104 Carbon Dioxide 7.8 L Anion Gap 26.2 H BUN 93 H* Creatinine 4.1 H* Est GFR (CKD-EPI 2020) 14.71 Glucose 47 L* Calcium 8.4 L Phosphorus 10.6 H Magnesium 2.9 H Iron Ferritin > 2000 H Total Bilirubin 3.3 H Conjugated Bilirubin 2.6 H AST 900 H ALT 394 H Alkaline Phosphatase 582 H Ammonia Lactate Dehydrogenase Total Protein 6.4 Albumin 3.3 L Procalcitonin 04/28/22 04/28/22 04/28/22 07:35 07:35 07:46 PT 19.5 H INR 2.0 H Fibrinogen ABG Sample Site Right Brachial ABG pH < 7.00 L* ABG pCO2 23 L ABG pO2 120 H ABG HCO3 5 L ABG Total CO2 5 L ABG O2 Saturation 95 ABG Base Excess < -15 L VBG pH 6.93 L* VBG pCO2 28 L VBG pO2 70 VBG HCO3 6 L VBG Total CO2 6 L VBG O2 Saturation 78 VBG Base Excess < -15 L VBG Lactate Oxygen Liter Flow 5 Sodium Potassium Chloride Carbon Dioxide Anion Gap BUN Creatinine Est GFR (CKD-EPI 2020) Glucose Calcium Phosphorus Magnesium Iron Ferritin Total Bilirubin Conjugated Bilirubin AST ALT Alkaline Phosphatase Ammonia Lactate Dehydrogenase Total Protein Albumin Procalcitonin
[2022-04-28] MEDS: Albuterol 2.5 MG/3 ML INH SOLN VIAL UPD (09:23)
[2022-04-28] MEDS: Insulin REGULAR-Human 100 UNITS/ML UNIT 10 UNITS SC (09:34)
[2022-04-28] MEDS: MORPHine 2 MG/ML SYR 1 MG IVP (10:05)
[2022-04-28] MEDS: Normal Saline Flush 10 ML SYR IVP (10:07)
[2022-04-28 10:09] LABS: Absolute Lymphocyte Count 1.85 10^3/uL (1.2-3.4); Absolute Monocyte Count 0.08 10^3/uL (0.1-0.8); Absolute Neutrophil Count 5.63 10^3/uL (1.2-6.7); Bands % 9; Diff Comment Manual Differential; Metamyelocytes % 3; Myelocytes % 7; Polychromasia Present
[2022-04-28 10:10] LABS: Poikilocytes 1+
--- NOTE | 2022-04-28 10:24 | DI.VRAD_ITS ---
PROCEDURE INFORMATION: Exam: XR Chest Exam date and time: 04/28/2022 7:58 AM Age: 71 years old Clinical indication: Other: Dyspnea TECHNIQUE: Imaging protocol: Radiologic exam of the chest. Views: 1 view. COMPARISON: 1. XR PORTABLE CHEST AP POST LINE 04/16/2022 4:21 AM 2. XR PORTABLE CHEST AP 04/25/2022 4:56 PM FINDINGS: Lungs: New hazy bibasilar airspace opacities, suspected passive atelectasis, superimposed on chronic coarsening of the interstitial markings. Pleural spaces: New blunting of the costophrenic angle suggests new small bilateral pleural effusions. No pneumothorax. Heart/Mediastinum: Top-normal heart size. Uncoiled thoracic aorta. Cardiomediastinal contours are stable. Bones/joints: Degenerative changes. No acute osseous abnormality. IMPRESSION: Small bilateral pleural effusions and mild patchy bibasilar airspace opacities, new since 04/25/2022. Dictated and Authenticated by: Rae Hilario MD. Ordering:[facility] Sahara Bess MD
[2022-04-28] MEDS: MORPHine 2 MG/ML SYR IVP (10:25)
--- NOTE | 2022-04-28 10:43 | POCUS_ITS ---
Pocus Exam Limited Cardiac Exam DATE OF EXAM: 04/28/22 TIME OF EXAM: 08:00 PROVIDER THAT PERFORMED THE STUDY: Shahriar Shoemaker IS THIS A REPEAT EXAM DURING THIS ENCOUNTER: no REASON FOR EXAM: Hypotension VISUALIZED STRUCTURES: four chambers, LVOT, aortic valve, mitral valve, Interventricular septum and IVC VIEW OBTAINED: Apical 4-Chamber, Parasternal long-axis, Parasternal short-axis and Subxiphoid PERTINENT FINDINGS/IMPRESSION: IVC inspiratory collapsability, LV dysfunction (global hypokinesis but no regional wall abnormalities and CO 2.6 to 2.7 L/min seneca, VTI 15.3 TO 16.0) :mild, RV dilation (RV dilated and equal in size and LV), RV dysfunction (TAPSE 11 mm, TR cuspid TDI S prime was 8.2 cm/s) and Other INCIDENTAL FINDINGS: septic cardiomyopathy Exam complete
[2022-04-28] MEDS: LORazepam 2 MG/ML VIAL IVP (11:06)
[2022-04-28] MEDS: MORPHine 250 MG in Normal Saline 245 ML IV (11:37)
--- NOTE | 2022-04-28 12:59 | NUR.NOTE ---
Addendum entered by Jo Almeida 04/28/22 13:21: I monitored BP for norepi titration using manual cuff and doppler. Systolic BP maintained over 90 with titrations. so02s in chart are also not all accurate given poor perfusion and pleuth. bloodwork indicated the patient is not hypoemic. Original Note: This is a summary of the morning events. See MD report for assessment and treatment as well. I received report this AM with the patient being restless and pulling at wires. He had been trying to get OOB but was becoming increasingly somnolent. Per report the patient had increasing AM, became ashen, mottled, hypotensive, low urine output, and increased WOB overnight. Patient was seen by night hospitalist and did improve after some oxygen and a fluid bolus but remains with the listed conditions above at report. Patient also converted from afib to SB overnight. Lab called and reported a critical value of blood glucose 47 and potassium 6.7. Radha RIOS notified Dr. Valdez during report of patient's critical labs, current critical status and asked him to come see the patient. Dr. Shoemaker gave verbal order for D50 1g glucose IVP now and is ordering ABG, VBG, and follow-up orders. Dr. Shoemaker in the room and assessed patient. ABG/VBG shows severe metabolic acidosis and o2 is over 100 despite the sp02 monitor reading 80. Given the patient's poor perfusion, it is difficult to get an accurate sp02 and BP using the monitor. Patient's BP checked with the manual cuff and doppler and found to be in the 70s systolic. Care and meds over the next 2 hours consisted Dextrose 1g IVP x 3 total, Insulin IV 10units, Sodium Chloride IVP 1 ampule, Calcium Gluconate IVPB, morphine 2mg IVP, Norepinephrine to 0.2mcg/kg/min, D10W at 100ml/hr (see MAR for all doses). Patient also had a CXR, POCUS, albuterol updraft, labs, and oxygen titration. I gave one on one continuous care for the patient and Dr. Valdez stayed over 2 hours in the unit assessing patient and addressing needs. Dr. Shoemaker spoke to [facility] regarding the patient and they have strong concern for ischemic bowel as the patient's abdomen is growing more distended and the patient winces more when pressed than earlier this shift. Dr. Shoemaker spoke to multiple family members including the brother Adrien and daughter Annie (Annie is a home health and hospice nurse). He expressed the patient's critical state and they agreed to come see the patient with the consideration of placing the patient on TRAILER STEERER. Central line, arterial line, and doButamine held as family are arriving for TRAILER STEERER discussion. The patient arrived and spoke with Dr. Shoemaker and it was eventually agreed upon to go TRAILER STEERER. Patient was handed off to Kylah Zuleta RN who is starting a morphine drip, giving ativan, and stoping drips to move the patient to CO for TRAILER STEERER comfort. All family concerns have been addressed. Patient is resting comfortably after ativan and morphine. Nursing Note:
--- NOTE | 2022-04-28 16:32 | EXPE_ITS ---
Date of service: 04/28/22 Time of Service: 16:33 Discharge Plan Disposition Patient Disposition: Condition: Poor Discharge Details Reason For Visit: Rapid Afib,CHF,HOME,?Cholecystitis Admit Date/Time: 04/25/22 22:02 Admit Provider: Ghislaine Rodriguez Attending Provider: Ghislaine Rodriguez Primary Care Provider: Ed Wray Home Meds and New Rx's Prescriptions: No Action atorvastatin 20 mg tablet 20 mg PO DAILY Label Comments: TAKE ONE TABLET BY MOUTH EVERY DAY Anoro Ellipta 62.5-25 mcg/actuation blister with device 1 inh INHALATION DAILY Label Comments: INHALE ONE PUFF BY MOUTH EVERY DAY aspirin 81 mg Tablet,Chewable 81 mg PO DAILY atenolol 100 mg Tablet 150 mg PO DAILY albuterol sulfate 90 mcg/actuation Hfa Aerosol Inhaler 2 puff INHALATION Q6H PRN losartan 100 mg Tablet 100 mg PO DAILY ipratropium-albuterol 0.5 mg-3 mg(2.5 mg base)/3 mL Solution For Nebulization 3 ml UPD Q4H PRN PRN (Reason: shortness of breath or wheezing) Qty: 90 0RF folic acid 1 mg Tablet 1 mg PO DAILY Qty: 30 0RF Rx Instructions: Patient unsure if he is taking guaifenesin [Mucinex] 600 mg Tablet Extended Release 12hr 600 mg PO BID PRN PRN (Reason: cough) Qty: 10 0RF Rx Instructions: Patient unsure if he is taking multivitamin [Multiple Vitamins] Tablet 1 tab PO DAILY Qty: 30 0RF thiamine mononitrate (vit B1) [Vitamin B-1 (mononitrate)] 100 mg Tablet 100 mg PO DAILY Qty: 30 0RF Rx Instructions: Patient unsure if he is taking atorvastatin 20 mg tablet Label Comments: TAKE ONE TABLET BY MOUTH EVERY DAY Anoro Ellipta 62.5-25 mcg/actuation blister with device INHALATION Label Comments: INHALE ONE PUFF BY MOUTH EVERY DAY Discharge Data Cause of : Septic shock due to undetermined organism Discharge Physician: Tessie Watson Discharge Sum: Prov Provider Admitting clinician: Ghislaine Rodriguez Attending physician on admission: Ghislaine Rodriguez Pronouncing clinician: Mario Grier Discharge Sum: Diag PCOD Cause of : Septic shock due to undetermined organism Contributing Factors (1) Ischemic colitis: (2) Lactic acidosis: (3) Hyperkalemia: (4) HOME (acute kidney injury): (5) Acute hepatic failure: (6) Atrial fibrillation: (7) Cirrhosis: Contributing factors: alcoholic hepatitis (8) COPD (chronic obstructive pulmonary disease): (9) Pulmonary fibrosis: Discharge Sum: Summary Date and Time Admission Date: 04/25/2212/29/22 22:02 Date of : 04/28/22 Time of : 14:59 Summary Details: 71-year-old male with history of COPD, pulmonary fibrosis not requiring home oxygen, chronic atrial fibrillation not anticoagulated, hypertension, alcohol abuse recently discharged from [facility] after partial large bowel obstruction alleviated by enemas and subsequently had a colonoscopy with polypectomy of 3 colon polyps for which pathology came back showing tubular adenoma. Patient be discharged on the day of the procedure and came back the same day with some r ectal bleeding. On presentation to [facility] on 04/25/2022 patient was complaining of cough subjective fevers and chills sputum production and shortness of breath. Patient reportedly quit drinking alcohol cold turkey 4 weeks prior to admission. Patient complaint shortness of breath but no chest pain. He denies any nausea vomiting or abdominal pain on admission but endorses some black stools. Work-up in the emergency department revealed he was in rapid atrial fibrillation at a rate of in the 140s. He required boluses of IV metoprolol and diltiazem and eventually was put on diltiazem drip and admitted to the intensive care unit. He was given a dose of IV steroids in the emergency department and nebulizer treatments. He had a elevated D-dimer but CTA cannot be performed because of acute renal insufficiency. He was empirically started heparin drip scheduled for VQ scan the following day of admission. He was found to have elevated LFTs with an AST of 591, ALT 293, alkaline phosphatase [address] of the abdomen pelvis without contrast showed possible early cirrhosis as well as mild gallbladder wall thickening and stranding suggestive of cholecystitis versus gallbladder edema. He was found to have generalized anasarca and ascites. Admission white count was normal at 5700 he had a mild anemia hemoglobin 12.7 hematocrit 38.5. BUN was elevated 50 creatinine 2.1. Stool was checked for occult blood and found to be negative. Because of the ascites and peripheral edema and JVD he was started on IV Lasix. Subsequent labs the next day showed rising BUN and creatinine at 60 and 2.3 and the following day it went up to 84 3.2. On 04/27/2022 IV diuretics were discontinued he was started on IV fluids and IV albumin. At that point his transaminases had risen to an AST of 1026, ALT 446, alkaline phosphatase 760 his CRP was elevated 8.73 albumin is down to 2.4 on admission his procalcitonin was elevated 8.4 and reilly to 14.1. LDH was greater than 4000 and his ammonia level was elevated 46. He was put on lactulose for the hyperammonemia. Further imaging of his abdomen included abdominal ultrasound performed on 04/26/2022 showed a contracted gallbladder with a stone but no evidence of acute cholecystitis. He had enlarged cirrhotic looking liver with small amount of surrounding ascites. VQ lung scan was negative for pulmonary emboli. Chest x-ray on admission showed chronic interstitial markings in the lung long unchanged from previous chest x-ray from 04/16/2022. CT scan of his head performed on 04/26/2022 because of subjective complaints of intermittent confusion prior to admission showed no acute intracranial process. Venous duplex scan of his legs was negative for DVT. On 04/27/2022 VBG was performed and showed pH 7.30 with a blood lactate of five-point . By the morning of 04/28/2022 his lactate had gone up to 15 and pH dropped to 6.93. Patient had developed significant hypotension overnight from 04/27/2022 to 04/28/2022 and required vasopressor treatment after IV fluids that failed to maintain his blood pressure. He was put on norepinephrine drip and dobutamine was added. Prior to his development of hypotension his atrial fibrillation was controlled with IV diltiazem drip and then subsequently placed on oral diltiazem and metoprolol. When the patient developed hypotension his diltiazem drip had been off and his oral beta-socrates and calcium channel blockers were held. Because of persistent hypotension the vasopressors were added along with dobutamine. On 04/26/2022 he did receive 2 L of fluid support and on 04/27/2022 he received 3 L of IV fluids and another 2500 mL of fluid on 04/28/2022. In spite of aggressive IV hydration and vasopressors he continued to have hypotension and peripheral mottling and by this time he was developing abdominal pain and his blood lactate had risen to 15. Concern was raised for possible ischemic bowel CT scan of the abdomen pelvis was ordered however after goals of care discussion was held with his family it was determined not to pursue further work-up or treatment but to pursue comfort measures. Conversations by phone as well as in person was had by myself with the patient's brother and the patient's daughter. In response to family's wishes based on their understanding of the patient's wishes patient was made comfort care and the patient was started on morphine drip for pain and dyspnea control and given lorazepam for agitation. Dobutamine and norepinephrine was discontinued and patient was transferred to the medical floor where the family was able to be with him continuously until he on 04/28/2021 at 1454 and was pronounced at 1459 by the patient's primary nurse Mario Grier RN. Presumptive diagnosis was ischemic bowel causing septic shock and multiorgan system failure including renal and liver failure. Contributing factors include rapid atrial fibrillation as well as underlying alcoholic cirrhosis and alcoholic hepatitis. Patient's alcoholic hepatitis was treated with steroids and IV fluids and albumin as well as the addition of norepinephrine when he developed hypotension. No autopsy was performed. Additional Data Confirmation of as documented by pronouncing clinician: no pulse, no respirations, no heart sounds and pupils fixed and dilated Family: at bedside Attending/PCP notified?: Yes Attending Physician: Ghislaine Phoenix Was code activated?: No Autopsy requested?: No workers compensation examiner notified?: No Organ bank notified?: Yes Advance directives: No Hospice patient?: No
[2022-04-29 10:25] LABS: HBs Antibody, Qual Negative (See Note); HBs Antibody, Quant <3.1 mIU/mL (See Note); Hepatitis B Core Antibody Negative (Negative); Hepatitis B surface Ag Negative (Negative); Hepatitis C Ab w Rflx HCV PCR Negative (Negative)
[2022-04-29 11:41] LABS: Hepatitis A Antibody IgM Negative (Negative); Hepatitis B Core Antibody Negative (Negative); Hepatitis B surface Ag Negative (Negative); Hepatitis C Ab w Rflx HCV PCR Negative (Negative)
[2022-04-29 18:11] LABS: Legionella Ag Detection Urine Negative (Negative)
[2022-04-30 09:55] LABS: Lyme Ab w Rflx to Lyme Confirm Negative (Negative)
[2022-05-01 15:37] LABS: Streptococcus Pneumoniae Ag, U Negative (Negative)
[2022-05-01 16:02] LABS: Mitochondrial Ab, M2 <0.1 U
[2022-05-01 16:45] LABS: Mycoplasma Pneumoniae PCR Negative; Specimen source sputum
[2022-05-01 18:52] LABS: Anaplasma phagocytophilum Negative (Negative); B. miyamotoi PCR Negative (Negative); Babesia divergens/MO-1 Negative (Negative); Babesia duncani Negative (Negative); Babesia microti Negative (Negative); Ehrlichia chaffeensis Negative (Negative); Ehrlichia ewingii/canis Negative (Negative); Ehrlichia muris eauclairensis Negative (Negative)
[2022-05-07 11:39] LABS: Antinuclear Ab, S 0.2 U; Smooth Muscle Ab Screen Negative
[2022-06-24 16:46] LABS: Lab Add On Test DONE
[2022-06-24 16:46] LABS: Lab Add On Test DONE
== END 2022-04-28 14:54 | disposition expired | DRG 308 ==
LOC: ER 23:43 → ICU 04-26 00:41 → MS 04-28 16:29
PROVIDERS: Internal Medicine; Registered Nurse Emergency; Admitting Provider Internal Medicine; Emergency Provider Nurse Practitioner Family; PCP Physician Assistant; Visit Provider Internal Medicine
DX: I48.91 Unspecified atrial fibrillation (principal); A41.9 Sepsis, unspecified organism; I50.33 Acute on chronic diastolic (congestive) heart failure; K55.059 Acute (reversible) ischemia of intestine, part and extent unspecified; R65.21 Severe sepsis with septic shock; K72.00 Acute and subacute hepatic failure without coma; N17.9 Acute kidney failure, unspecified; E87.1 Hypo-osmolality and hyponatremia; J44.9 Chronic obstructive pulmonary disease, unspecified; F10.10 Alcohol abuse, uncomplicated; I11.0 Hypertensive heart disease with heart failure; K70.31 Alcoholic cirrhosis of liver with ascites; K59.00 Constipation, unspecified; R41.0 Disorientation, unspecified; E87.6 Hypokalemia; Z86.010 Personal history of colon polyps; R79.1 Abnormal coagulation profile; J84.10 Pulmonary fibrosis, unspecified; Z87.891 Personal history of nicotine dependence; Z66 Do not resuscitate; F12.90 Cannabis use, unspecified, uncomplicated; K80.20 Calculus of gallbladder without cholecystitis without obstruction; Z51.5 Encounter for palliative care; I95.9 Hypotension, unspecified; E87.5 Hyperkalemia
CPT/HCPCS: 36415; 78582; 80048; 80053; 80076; 80307; 82805; 83516; 84145; 85384; 86038; 86255; 86704; 86706; 86709; 86803; 87040; 87077; 87340; 87449; 87635; 87798; 93005; 94640; 96374; 96375; 96376; 99222; 99291; 36600; 70450; 71045; 74176; 76700; 80329; 81003; 82140; 82728; 83540; 83605; 83615; 83735; 83880; 84100; 84439; 84443; 84484; 85025; 85379; 85610; 85730; 86140; 86618; 87070; 87186; 87205; 87581; 87899; 93010; 93970; 99292; J1650; J1940; J2060; J2270; J2930; J7512; J7613; J7614; J7620; J7644